=== PATIENT | male | born 1935 | race Caucasian/White ===

== ENCOUNTER → 2024-01-22 08:30 | Outpatient (REF) | payer MEDICARE, BC, SELFPAY ==
[2024-01-22 09:05] LABS: % Basophils 0.4 % (0-2); % Immature Granulocytes 0.3 % (0-0.5); % Lymphocytes 21.9 % (20.5-51.1); % Monocytes 13.1 % (1.7-9.3); % Neutrophils 62.3 % (42.2-75.2); Absolute Eosinophils 0.2 10^3/uL (0-0.7); Absolute Lymphocytes 1.6 10^3/uL (1.2-3.4); Absolute Neutrophils 4.6 10^3/uL (1.4-6.5); Hematocrit 35.3 % (39.0-52.0); Hemoglobin 11.4 g/dL (13.0-18.0); Mean Corp Hgb Conc. 32.3 g/dL (33.0-37.0); Mean Corpuscular Hgb 29.2 pg (27.0-31.0); Mean Corpuscular Volume 90.5 fL (80.0-94.0); Mean Platelet Volume 10.3 fL (7.4-10.4); Nucleated Red Blood Cells % 0 % (-); Platelet Count 143 10^3/uL (130-400); Red Cell Dist. Width 12.8 % (11.5-14.5); White Blood Cell Count 7.3 10^3/uL (4.8-10.8)
[2024-01-22 09:53] LABS: ALT (SGPT) 20 U/L (0-50); AST (SGOT) 38 U/L (17-59); Albumin 3.8 g/dl (3.5-5.0); Alkaline Phosphatase 47 U/L (38-126); Blood Urea Nitrogen 48 mg/dl (9-20); Calcium 9.7 mg/dl (8.4-10.2); Carbon Dioxide 30 mmol/L (22-30); Chloride 95 mmol/L (98-107); Glucose 108 mg/dl (70-99); Potassium 4.2 mmol/L (3.5-5.1); Sodium 134 mmol/L (135-145); Total Bilirubin 0.7 mg/dl (0.2-1.3); Total Protein 6.7 g/dl (6.3-8.2); eGFR > 60.00
== END ==
LOC: REG 08:30
PROVIDERS: ATTENDING PHYSICIAN Internal Medicine Rheumatology; FAMILY PHYSICIAN Family Medicine; REFERRING PHYSICIAN Family Medicine
DX: D64.9 Anemia, unspecified (principal); E55.9 Vitamin D deficiency, unspecified; K52.89 Other specified noninfective gastroenteritis and colitis; M06.00 Rheumatoid arthritis without rheumatoid factor, unspecified site; M15.0 Primary generalized (osteo)arthritis; M19.031 Primary osteoarthritis, right wrist; M48.061 Spinal stenosis, lumbar region without neurogenic claudication; R60.0 Localized edema; R76.8 Other specified abnormal immunological findings in serum; Z79.899 Other long term (current) drug therapy
CPT/HCPCS: 36415; 80053; 85025; 86140

== ENCOUNTER → 2024-03-04 09:11 | Outpatient (REF) | payer MEDICARE, BC, SELFPAY ==
[2024-03-04 09:59] LABS: % Basophils 0.4 % (0-2); % Eosinophils 2.9 % (0-6); % Immature Granulocytes 0.3 % (0-0.5); % Lymphocytes 17.4 % (20.5-51.1); % Monocytes 15.5 % (1.7-9.3); % Neutrophils 63.5 % (42.2-75.2); Absolute Eosinophils 0.2 10^3/uL (0-0.7); Absolute Lymphocytes 1.2 10^3/uL (1.2-3.4); Absolute Monocytes 1.1 10^3/uL (0.1-0.6); Absolute Neutrophils 4.4 10^3/uL (1.4-6.5); Hemoglobin 11.2 g/dL (13.0-18.0); Mean Corp Hgb Conc. 32.9 g/dL (33.0-37.0); Mean Corpuscular Hgb 29.9 pg (27.0-31.0); Mean Corpuscular Volume 90.9 fL (80.0-94.0); Mean Platelet Volume 10.4 fL (7.4-10.4); Nucleated Red Blood Cells % 0 % (-); Platelet Count 128 10^3/uL (130-400); Red Blood Cell Count 3.74 10^6/uL (4.70-6.10); Red Cell Dist. Width 12.5 % (11.5-14.5); White Blood Cell Count 6.9 10^3/uL (4.8-10.8)
[2024-03-04 10:22] LABS: Iron 69 ug/dl (49-181)
[2024-03-04 10:31] LABS: Percent Saturation 21 % (20-50); Total Iron Binding Capacity 318 ug/dl (261-462)
[2024-03-04 12:09] LABS: Ferritin 42.3 ng/ml (17.9-464.0)
[2024-03-04 12:40] LABS: Folate > 20.0 ng/ml (2.76-20); Vitamin B12 607 pg/ml (239-931)
== END ==
LOC: REG 09:11
PROVIDERS: ATTENDING PHYSICIAN Internal Medicine Rheumatology; FAMILY PHYSICIAN Family Medicine
DX: D64.9 Anemia, unspecified (principal); E55.9 Vitamin D deficiency, unspecified; K52.89 Other specified noninfective gastroenteritis and colitis; M06.00 Rheumatoid arthritis without rheumatoid factor, unspecified site; M15.0 Primary generalized (osteo)arthritis; M19.031 Primary osteoarthritis, right wrist; M48.061 Spinal stenosis, lumbar region without neurogenic claudication; R60.0 Localized edema; R76.8 Other specified abnormal immunological findings in serum; R79.82 Elevated C-reactive protein (CRP); Z79.899 Other long term (current) drug therapy
CPT/HCPCS: 36415; 82607; 82728; 82746; 83540; 83550; 85025; 86140

== ENCOUNTER → 2024-04-02 07:09 | Outpatient (REF) | payer MEDICARE, BC, SELFPAY | LOC: RCS 07:09 | PROVIDERS: ATTENDING PHYSICIAN Family Medicine | DX: I49.3 Ventricular premature depolarization (principal); I49.1 Atrial premature depolarization | CPT/HCPCS: 93306 ==

== ENCOUNTER → 2024-07-17 08:34 | Outpatient (REF) | payer MEDICARE, BC, SELFPAY ==
[2024-07-17 09:23] LABS: % Basophils 0.3 % (0-2); % Eosinophils 2.1 % (0-6); % Immature Granulocytes 0.3 % (0-0.5); % Lymphocytes 15.5 % (20.5-51.1); % Monocytes 13.4 % (1.7-9.3); % Neutrophils 68.4 % (42.2-75.2); Absolute Eosinophils 0.2 10^3/uL (0-0.7); Absolute Lymphocytes 1.2 10^3/uL (1.2-3.4); Absolute Neutrophils 5.2 10^3/uL (1.4-6.5); Hematocrit 35.7 % (39.0-52.0); Hemoglobin 11.7 g/dL (13.0-18.0); Mean Corp Hgb Conc. 32.8 g/dL (33.0-37.0); Mean Corpuscular Hgb 29.3 pg (27.0-31.0); Mean Corpuscular Volume 89.3 fL (80.0-94.0); Mean Platelet Volume 9.7 fL (7.4-10.4); Nucleated Red Blood Cells % 0 % (-); Platelet Count 142 10^3/uL (130-400); Red Cell Dist. Width 12.8 % (11.5-14.5); White Blood Cell Count 7.6 10^3/uL (4.8-10.8)
[2024-07-17 11:20] LABS: ALT (SGPT) 21 U/L (0-50); AST (SGOT) 39 U/L (17-59); Albumin 4.3 g/dl (3.5-5.0); Alkaline Phosphatase 55 U/L (38-126); Blood Urea Nitrogen 30 mg/dl (9-20); Calcium 10.2 mg/dl (8.4-10.2); Carbon Dioxide 32 mmol/L (22-30); Chloride 96 mmol/L (98-107); Glucose 94 mg/dl (70-99); Potassium 4.3 mmol/L (3.5-5.1); Sodium 137 mmol/L (135-145); Total Bilirubin 0.7 mg/dl (0.2-1.3); Total Protein 6.7 g/dl (6.3-8.2); eGFR > 60.00
[2024-07-17 11:40] LABS: Vitamin D, 25-OH*** 40.4 ng/mL (30-80)
== END ==
LOC: REG 08:34
PROVIDERS: ATTENDING PHYSICIAN Internal Medicine Rheumatology; FAMILY PHYSICIAN Family Medicine
DX: D64.9 Anemia, unspecified (principal); E55.9 Vitamin D deficiency, unspecified; K52.89 Other specified noninfective gastroenteritis and colitis; M06.00 Rheumatoid arthritis without rheumatoid factor, unspecified site; M15.0 Primary generalized (osteo)arthritis; M19.031 Primary osteoarthritis, right wrist; M48.061 Spinal stenosis, lumbar region without neurogenic claudication; R60.0 Localized edema; R76.8 Other specified abnormal immunological findings in serum; R79.82 Elevated C-reactive protein (CRP); Z79.899 Other long term (current) drug therapy
CPT/HCPCS: 36415; 80053; 82306; 85025; 86140

== ENCOUNTER → 2024-11-05 08:16 | Outpatient (REF) | payer MEDICARE, BC, SELFPAY | LOC: RAD 08:16 | PROVIDERS: ATTENDING PHYSICIAN Internal Medicine Rheumatology; FAMILY PHYSICIAN Family Medicine | DX: M81.0 Age-related osteoporosis without current pathological fracture (principal); Z13.820 Encounter for screening for osteoporosis | CPT/HCPCS: 77080 ==

== ENCOUNTER → 2024-12-14 11:46 | Outpatient (REF) | payer MEDICARE, BC, SELFPAY | LOC: PAVMRI 11:46 | PROVIDERS: ATTENDING PHYSICIAN Physician Assistant; FAMILY PHYSICIAN Family Medicine | DX: M54.16 Radiculopathy, lumbar region (principal) | CPT/HCPCS: 72148 ==

== ENCOUNTER → 2025-04-14 12:51 | Outpatient (REF) | payer MEDICARE, BC, SELFPAY ==
[2025-04-14 13:24] LABS: % Basophils 0.3 % (0-2); % Eosinophils 1.1 % (0-6); % Immature Granulocytes 0.5 % (0-0.5); % Monocytes 9.7 % (1.7-9.3); % Neutrophils 79.4 % (42.2-75.2); Absolute Eosinophils 0.1 10^3/uL (0-0.7); Absolute Lymphocytes 0.6 10^3/uL (1.2-3.4); Absolute Monocytes 0.6 10^3/uL (0.1-0.6); Absolute Neutrophils 5.2 10^3/uL (1.4-6.5); Hematocrit 29.3 % (39.0-52.0); Hemoglobin 9.5 g/dL (13.0-18.0); Mean Corp Hgb Conc. 32.4 g/dL (33.0-37.0); Mean Corpuscular Hgb 30.2 pg (27.0-31.0); Mean Platelet Volume 9.3 fL (7.4-10.4); Nucleated Red Blood Cells % 0 % (-); Platelet Count 145 10^3/uL (130-400); Red Blood Cell Count 3.15 10^6/uL (4.70-6.10); Red Cell Dist. Width 13.1 % (11.5-14.5); White Blood Cell Count 6.6 10^3/uL (4.8-10.8)
[2025-04-14 14:19] LABS: ALT (SGPT) 33 U/L (0-50); AST (SGOT) 46 U/L (17-59); Albumin 4.4 g/dl (3.5-5.0); Alkaline Phosphatase 43 U/L (38-126); Blood Urea Nitrogen 27 mg/dl (9-20); Calcium 9.4 mg/dl (8.4-10.2); Carbon Dioxide 33 mmol/L (22-30); Chloride 96 mmol/L (98-107); Glucose 140 mg/dl (70-99); Potassium 4.9 mmol/L (3.5-5.1); Sodium 132 mmol/L (135-145); Total Bilirubin 0.9 mg/dl (0.2-1.3); eGFR > 60.00
== END ==
LOC: REG 12:51
PROVIDERS: ATTENDING PHYSICIAN Internal Medicine Rheumatology; FAMILY PHYSICIAN Family Medicine
DX: D64.9 Anemia, unspecified (principal); E55.9 Vitamin D deficiency, unspecified; I35.0 Nonrheumatic aortic (valve) stenosis; K52.89 Other specified noninfective gastroenteritis and colitis; M06.00 Rheumatoid arthritis without rheumatoid factor, unspecified site; M15.0 Primary generalized (osteo)arthritis; M19.031 Primary osteoarthritis, right wrist; M48.061 Spinal stenosis, lumbar region without neurogenic claudication; M81.0 Age-related osteoporosis without current pathological fracture; R60.0 Localized edema; R76.8 Other specified abnormal immunological findings in serum; Z79.899 Other long term (current) drug therapy
CPT/HCPCS: 36415; 80053; 85025; 86140

== ENCOUNTER → 2025-04-22 09:18 | Outpatient (REF) | payer MEDICARE, BC, SELFPAY ==
[2025-04-22 10:11] LABS: % Basophils 0.3 % (0-2); % Eosinophils 1.3 % (0-6); % Immature Granulocytes 0.3 % (0-0.5); % Lymphocytes 8.7 % (20.5-51.1); % Monocytes 11.4 % (1.7-9.3); Absolute Eosinophils 0.1 10^3/uL (0-0.7); Absolute Lymphocytes 0.6 10^3/uL (1.2-3.4); Absolute Monocytes 0.8 10^3/uL (0.1-0.6); Absolute Neutrophils 5.6 10^3/uL (1.4-6.5); Hematocrit 31.8 % (39.0-52.0); Hemoglobin 10.3 g/dL (13.0-18.0); Mean Corp Hgb Conc. 32.4 g/dL (33.0-37.0); Mean Corpuscular Volume 92.7 fL (80.0-94.0); Mean Platelet Volume 9.4 fL (7.4-10.4); Nucleated Red Blood Cells % 0 % (-); Platelet Count 147 10^3/uL (130-400); Red Blood Cell Count 3.43 10^6/uL (4.70-6.10); Red Cell Dist. Width 13.4 % (11.5-14.5); White Blood Cell Count 7.1 10^3/uL (4.8-10.8)
[2025-04-22 10:50] LABS: Iron 54 ug/dl (49-181)
[2025-04-22 10:59] LABS: Percent Saturation 15 % (20-50); Total Iron Binding Capacity 352 ug/dl (261-462)
[2025-04-22 11:26] LABS: Ferritin 89.3 ng/ml (17.9-464.0)
== END ==
LOC: RAD 09:18
PROVIDERS: ATTENDING PHYSICIAN Internal Medicine Rheumatology; FAMILY PHYSICIAN Family Medicine
DX: M25.551 Pain in right hip (principal); D64.9 Anemia, unspecified; M06.00 Rheumatoid arthritis without rheumatoid factor, unspecified site
CPT/HCPCS: 36415; 73502; 82728; 83540; 83550; 85025

== ENCOUNTER → 2025-06-26 15:49 | Outpatient (REF) | payer MEDICARE, BC, SELFPAY | LOC: RCS 15:49 | PROVIDERS: ATTENDING PHYSICIAN Internal Medicine Cardiovascular Disease; FAMILY PHYSICIAN Family Medicine | DX: I35.0 Nonrheumatic aortic (valve) stenosis (principal) | CPT/HCPCS: 93306 ==

== ENCOUNTER → 2025-07-15 08:40 | Outpatient (REF) | payer MEDICARE, BC, SELFPAY ==
[2025-07-15 09:03] LABS: Hematocrit 35.7 % (39.0-52.0); Hemoglobin 11.4 g/dL (13.0-18.0); Mean Corp Hgb Conc. 31.9 g/dL (33.0-37.0); Mean Corpuscular Volume 87.7 fL (80.0-94.0); Nucleated Red Blood Cells % 0 % (-); Platelet Count 121 10^3/uL (130-400); Red Cell Dist. Width 13.2 % (11.5-14.5)
[2025-07-15 09:54] LABS: C-Reactive Protein < 5.00 mg/L (0.0-10.00)
[2025-07-15 11:12] LABS: ALT (SGPT) 27 U/L (0-50); AST (SGOT) 38 U/L (17-59); Albumin 4.2 g/dl (3.5-5.0); Alkaline Phosphatase 51 U/L (38-126); Blood Urea Nitrogen 22 mg/dl (9-20); Calcium 9.7 mg/dl (8.4-10.2); Carbon Dioxide 28 mmol/L (22-30); Chloride 96 mmol/L (98-107); Glucose 103 mg/dl (70-99); Potassium 4.7 mmol/L (3.5-5.1); Sodium 130 mmol/L (135-145); Total Protein 6.4 g/dl (6.3-8.2); eGFR > 60.00
== END ==
LOC: REG 08:40
PROVIDERS: ATTENDING PHYSICIAN Physician Assistant; FAMILY PHYSICIAN Family Medicine
DX: M06.00 Rheumatoid arthritis without rheumatoid factor, unspecified site (principal); Z79.899 Other long term (current) drug therapy
CPT/HCPCS: 36415; 80053; 85025; 86140

== ENCOUNTER 2025-08-19 20:13 | Inpatient (IN) | payer MEDICARE, BC, SELFPAY ==
[2025-08-19] VITALS (12 sets, daily range): BP systolic 113–158; BP diastolic 69–96; BMI 21.0; BMI 20.4
[2025-08-19 16:11] LABS: Hematocrit 34.5 % (39.0-52.0); Hemoglobin 11.1 g/dL (13.0-18.0); Mean Corp Hgb Conc. 32.2 g/dL (33.0-37.0); Mean Corpuscular Volume 87.3 fL (80.0-94.0); Nucleated Red Blood Cells % 0 % (-); Platelet Count 144 10^3/uL (130-400); Red Cell Dist. Width 14.4 % (11.5-14.5)
[2025-08-19 16:26] LABS: ALT (SGPT) 52 U/L (0-50); AST (SGOT) 59 U/L (17-59); Albumin 4.2 g/dl (3.5-5.0); Alkaline Phosphatase 66 U/L (38-126); Blood Urea Nitrogen 37 mg/dl (9-20); Calcium 9.8 mg/dl (8.4-10.2); Carbon Dioxide 25 mmol/L (22-30); Chloride 100 mmol/L (98-107); Glucose 143 mg/dl (70-99); Potassium 3.9 mmol/L (3.5-5.1); Sodium 132 mmol/L (135-145); Total Protein 6.8 g/dl (6.3-8.2); eGFR > 60.00
[2025-08-19 16:39] LABS: Troponin I 0.053 ng/ml
--- NOTE | 2025-08-19 17:45 | ED.GENMED ---
History of Present Illness
General
Chief Complaint: Swelling
Source: patient
Exam Limitations: none
Time Seen by Provider: 08/19/25 17:10
Nursing documentation reviewed up to this point in time: agreed with
History of Present Illness
History of Present Illness:
Patient with history of hypertension on hydrochlorothiazide and aortic stenosis, presents to ED secondary to 3-day history of lower leg swelling, along with skin breakdown noted over the past 24 hours. In addition, patient also reports 1 week
history of worsening shortness of breath with exertion. Denies chest pain. Denies chest palpitations. Denies vomiting or diarrhea. Denies fever or chills. Denies recent illness. Denies previous history of similar symptoms. Patient was
evaluated by his primary care physician who referred patient to ED for further evaluation and treatment. Denies recent travel or surgery. Denies leg pain.
Review of Systems
Review of Systems
Allergies reviewed?: Yes
All Other Systems: ROS reviewed and negative except as documented in HPI and ROS
Constitutional: Reports no symptoms
Respiratory: Reports trouble breathing; Denies cough
Cardiac: Reports no symptoms; Denies chest pain, palpitations or syncope
ABD/GI: Reports no symptoms; Denies vomiting or diarrhea
Musculoskeletal: Reports edema
Skin: Reports no symptoms
Neurological: Reports no symptoms
Phy Exam
Physical Exam
Physical Exam:
Physical Exam
General: mild distress, not acutely ill. afebrile
Head: nc/at. eomi
Neck: supple. no meningeal signs. normal posterior pharynx
Heart: irregularly irregular, tachycardic. systolic ejection murmur
Lungs: no acute respiratory distress. diminished breath sounds bilaterally
Abdomen: normal bowel sounds. not tender.
Neuro: alert and oriented x 3. no focal neurological deficits
Skin: no rash
Psychiatric: well kept. interactive and cooperative
Extremities: B/L LE edema, with erythema and superficial skin breakdown/abrasion. no calf tenderness.
Scores
[id number] Score for Afib Stroke Risk
Age in Years (65=0, 65-74=1, >/=75=2): > or = 75
Sex (Female=+1): Male
Congestive Heart Failure History (Yes=+1): No
Hypertension History (Yes=+1): Yes
Stroke/TIA/Thromboembolism History (Yes=+2): No
Vascular Disease History (Yes=+1): No
Diabetes Mellitus (Yes=+1): No
Score: 3
Anticoagulation Recommendations: Recommend anticoagulation (as validated in nonvalvular fib)
Heart Failure Risk
Heart Failure Risk Score: Yes
History of Stroke or TIA: No
History of intubation for respiratory distress: No
Heart rate on ED arrival >/= 110: Yes
SaO2 <90% on arrival on room air: No
HR >/=110 during 3min walk test (or too ill to perform test): Yes
ECG has acute ischemic changes: No
Urea >/=12mmol/L (BUN 33.6mg/dL): Yes
Serum CO2>/=35mmol/L: No
Troponin I or T elevated to [place] Level (0.4mg/dL): No
NT-proBNP >/=5,000ng/L (5,000pg/ml): Yes
HF Risk Score: 4
Admission Status: HIGH RISK 26.1% Consider SNF treatment or admission to hospital
Course
Orders/Labs/Results
Orders:
Orders
08/19/25 Dinner
Cholesterol Lowering
At Your Request: Full Participation
Cholesterol Lowering: Sodium, 2 Gram
08/19/25 15:41
Electrocardiogram (*1) Urgent
Reason for Study: Abnormal EKG
EKG- Treatment ONCE
08/19/25 15:57
BNP [NT-proBNP] Urgent
Complete Blood Count/With Diff Urgent
Comprehensive Metabolic Panel Urgent
Troponin I Urgent
08/19/25 17:26
US Legs, Bilateral [US Periph Venous LOWER Ext Timur] Urgent
Comment:
Reason For Exam: swelling w redness
08/19/25 17:27
CR Chest - 2 Views Urgent
Comment:
Reason For Exam: sob
08/19/25 17:51
Diltiazem HCl [Cardizem] 10 mg IV NOW STA
08/19/25 18:00
Diltiazem 125 mg/125 ml Nss [Cardizem] 125 mg in 125 ml IV PER PROTOCOL
Initial dose in mg/hr, then titrate:: 5
Titrate to keep:: Heart rate 80-100 bpm
Titrate by mg/hr:: 5 mg/hr
Frequency of titrations (minutes):: 15
Maximum dose in mg/hr:: 15
08/19/25 19:22
Furosemide [Lasix] 20 mg IV NOW STA
08/19/25 19:59
Admit/Transfer Patient As Directed
Co-Sign Provider:
Level of Care: Inpatient admission
Assign to:: Telemetry
Physician / Group: estela
Diagnosis: new onset afib rvr
Reason for Telemetry: Arrhythmia
Date to Stop Telemetry: 08/22/25
Time to Stop Telemetry: 11:00
Reason for Hospitalization: new onset afib rvr
Expected length of stay greater than two midnights?: Yes
ELOS- Estimated Length of Stay in days: 2
I certify the patient meets the requirements for IP care: Yes
08/19/25 20:00
Code Status As Directed
Resuscitation Status: Full Code
PRN Pain Medication Management As Directed
May give lesser potent ordered pain med per pt: Yes
preference::
Protocol:: Medication orders for pain may be administered in a
manner that supports deferring to patient preference
when the pt is:
- Requesting an ordered lesser potent pain medication.
Least to most potent pain medications are defined
as: acetaminophen < NSAID < tramadol < opioids
(morphine, oxycodone, hydromorphone).
- Requesting a lesser dose of the same medication IF
ORDERED.
- Requesting a less intrusive route of administration
if both routes are prescribed by the provider (PO <
IV).
08/19/25 20:11
EKG [Electrocardiogram (*1)] Urgent
Reason for Study: Abnormal EKG
EKG- Treatment ONCE
08/19/25 21:59
Troponin I Q6H
Apixaban [Eliquis] 5 mg PO BID
08/19/25 21:59
WOUND/OSTOMY CONSULT Routine
Reason for Consult: edema blistering
VTE Contraindication Routine
VTE Mechanical Device Contraindication: Medical Contraindication
Pharmocologic Contraindication: Medical Contraindication
TSH Reflex To Free T4 Routine
Activity As Directed
Activity Level: As Tolerated
I/O [Intake/ Output] As Directed
Frequency: q12h
Vital Signs As Directed
Frequency: Per unit guidelines
Weight As Directed
Frequency: Daily
08/20/25 04:21
Complete Blood Count/With Diff IN AM
Troponin I Q6H
08/20/25 04:22
Comprehensive Metabolic Panel IN AM
08/20/25 08:00
Budesonide [Entocort EC] 3 mg PO DAILY
Furosemide [Lasix] 20 mg IV DAILY
Hydroxychloroquine [Plaquenil] 200 mg PO DAILY
Loperamide [Imodium] 2 mg PO BID
Multivitamin [Theragran] 1 tablet PO DAILY
Triamterene/Hctz [Dyazide] 1 capsule PO DAILY
08/20/25 10:17
Troponin I Q6H
08/20/25 15:59
Troponin I Q6H
08/20/25 18:00
Tamsulosin [Flomax] 0.8 mg PO QPM
08/22/25 08:00
alendronate 35 mg PO SA
Abnormal Lab Results
08/19/25
15:57
RBC 3.95 L 10^6/uL
(4.70-6.10)
Hgb 11.1 L g/dL
(13.0-18.0)
Hct 34.5 L %
(39.0-52.0)
MCHC 32.2 L g/dL
(33.0-37.0)
Absolute Neuts (auto) 6.7 H 10^3/uL
(1.4-6.5)
Absolute Lymphs (auto) 0.7 L 10^3/uL
(1.2-3.4)
Absolute Monos (auto) 0.9 H 10^3/uL
(0.1-0.6)
Neutrophils % 80.3 H %
(42.2-75.2)
Lymphocytes % 8.6 L %
(20.5-51.1)
Monocytes % 10.3 H %
(1.7-9.3)
Sodium 132 L mmol/L
(135-145)
BUN 37 H mg/dl
(9-20)
Glucose 143 H mg/dl
(70-99)
ALT 52 H U/L
(0-50)
Troponin I 0.053 H* ng/ml
08/19/25 15:57
08/19/25 15:57
Vital Signs
Initial and Last Documented VS:
Initial Vital Signs
Temp Pulse Resp BP
97.8 F 95 16 146/96
08/19/25 15:41 08/19/25 15:41 08/19/25 15:41 08/19/25 15:41
Last Documented Vital Signs
Temp Pulse Resp BP Pulse Ox
97.8 F 94 14 120/75 97
08/20/25 10:58 08/20/25 11:14 08/20/25 10:58 08/20/25 11:14 08/20/25 10:58
MDM/Problems Addressed
MDM/Problems Addressed:
History, exam, EKG, and chest x-ray consistent with new onset rapid atrial fibrillation with heart failure. Patient will be started on Cardizem infusion and given Lasix IV. Patient will be admitted for further evaluation and treatment. Will defer
anticoagulation to admitting team.
*Pulse Oximetry
SaO2: 100
Oxygen Mode of Delivery: Room air
Patient hypoxic: no
*EKG
Interpreted by ED Provider?: Yes
EKG Intrepretation Date: 08/19/25
Heart Rate: 120
Rate: tachycardiac
Rhythm: a-fib
[place]: normal axis
Interval: normal interval
*Critical Care Note
Total Time (30-74mins, 75-104mins- exclusive of procedures): Not Applicable
ED Attending Note
-
Portions of this chart may have been created with voice recognition software.� Occasional wrong word or��sound alike� substitutions may have occurred due to the inherent limitations of voice recognition software.
Discharge Plan
Departure
Patient Disposition: Admit
Date of Disposition: 08/19/25
Time of Disposition: 19:24
Admit to: Telemetry
Presentation/result/management discussed w/ accepting MD/DO: Hospitalist
Discharge Problem:
Atrial fibrillation, rapid, Fluid overload
Interventions
Interventions:
*Risk Screen - Suicide Last Done: 08/19/25 22:04
*General Assessment Last Done: 08/19/25 15:41
*Neglect/Abuse Screening Last Done: 08/19/25 15:41
*ED COVID-19 Vaccine History Last Done: 08/19/25 22:04
*Nursing Disposition Last Done: 08/19/25 21:52
ED- Cardiac Assessment Last Done: 08/19/25 17:05
ED- Pulmonary Assessment Last Done: 08/19/25 17:05
ED-Skin Assessment Last Done: 08/19/25 17:05
Discharge Date and Time
Discharge Date/Time: 08/19/25 21:52
[2025-08-19] MEDS: CARDIZEM 125 IV (19:11)
[2025-08-19] MEDS: LASIX 20 MG IV (19:59)
--- NOTE | 2025-08-19 20:06 | HPS.HSE ---
Addendum entered and electronically signed by Ahsan Barrios MD 08/19/25 21:49:
Blood pressure 116/74 and HR 89. Cancelled PO metoprolol tartrate. PRN IV lopressor if needed for tachycardia.
Addendum entered and electronically signed by Ahsan Barrios MD 08/19/25 20:35:
Patient became bradycardic to 50s on cardizem drip so turned off and metoprolol tartrate 25 BID started.
Original Note:
Family Physician
-
Family Physician: Joseph Osman
Chief Complaint
-
shortness of breath
History of Present Illness
89-year-old male past medical history of hypertension, severe aortic stenosis, obstructive sleep apnea, BPH, rheumatoid arthritis, presenting with 3-day history of lower leg swelling, skin breakdown over the past 24 hours. Due to a history of
shortness of breath with exertion. Minimal cough. No chest pain. Denies palpitations. Denies vomiting or diarrhea. Denies fevers or chills. Denies recent illness. He gained 5 pounds in the past few days
He does not smoke. Occasionally drinks alcohol.
Medical History
Past Medical History
Past Medical History: Reports Other (hypertension, severe aortic stenosis, obstructive sleep apnea, BPH, rheumatoid arthritis)
Past Surgical History: Reports None
Social History
Tobacco: Non-smoker
Alcohol: Occasional
Drug: None
Family History
Family History: Not pertinent
Allergies / Home Medications
Allergies reflects when Allergies were last updated in [employer]
Home Medications with original date entered in [employer]
Allergy/Medication List:
Allergies
Allergy/AdvReac Type Severity Reaction Status Date / Time
penicillin G Allergy Unknown Verified 08/19/25 17:05
Penicillins Allergy Unknown Verified 08/19/25 17:05
Sulfa (Sulfonamide Allergy Unknown Verified 08/19/25 17:05
Antibiotics)
sulfamethoxazole Allergy Unknown Verified 08/19/25 17:05
trimethoprim Allergy Unknown Verified 08/19/25 17:05
[id number] - Not Allergy Unknown Uncoded 08/19/25 17:05
Converted 7. See Text.
Home Medications
acetaminophen 650 mg tablet,extended release 1,300 mg PO Q8HPRN PRN mild pain 08/19/25
alendronate 35 mg tablet 35 mg PO SA 08/19/25
budesonide 3 mg capsule,delayed,extended release 3 mg PO DAILY 08/19/25
hydroxychloroquine 200 mg tablet (Plaquenil) 200 mg PO DAILY 08/19/25
loperamide 2 mg capsule 2 mg PO BID 08/19/25
omega 6-hoy-uaf-fish oil 1,200 mg (144 mg-216 mg) capsule (Fish Oil) 1 cap PO BID 08/19/25
rituximab 10 mg/mL concentrate,intravenous (Rituxan) See Rx Instructions .Route .COMPLEX 08/19/25
tamsulosin 0.4 mg capsule (Flomax) 0.8 mg PO QPM 08/19/25
therapeutic multivitamin 1 tab PO DAILY 08/19/25
triamterene 37.5 mg-hydrochlorothiazide 25 mg capsule 1 cap PO DAILY 08/19/25
Review of Systems
-
Constitutional: Reports No Symptoms
EENT: Reports No Symptoms
Respiratory: Reports No Symptoms
Cardiac: Reports No Symptoms
Abdomen/GI: Reports No Symptoms
: Reports No Symptoms
Musculoskeletal: Reports No Symptoms
Skin: Reports No Symptoms
Neurological: Reports No Symptoms
Endocrine: Reports No Symptoms
Hematologic/Lymphatic: Reports No Symptoms
Psych: Reports No Symptoms
Physical Exam
Vital Signs
Vital Signs
Temp Pulse Resp BP Pulse Ox
98.8 F 90 24 121/69 100
08/19/25 17:03 08/19/25 19:59 08/19/25 19:42 08/19/25 19:59 08/19/25 19:30
Physical Exam
General: Well Developed, Well Nourished and No Apparent Distress
HEENT: NormoCephalic, Moist mucous membranes and Atraumatic
Respiratory: Clear
Cardiac: S1/S2 and Regular Rhythm; No Murmur or Rub
GI: Soft, Non Tender, Non Distended and Normal Bowel Sounds; No Organomegaly
Rectal: Deferred by Provider
Musculoskeletal: No Clubbing, No Cyanosis and No Edema
Skin: No Rash
Neuro: Nonfocal/grossly intact
Laboratory Results
-
08/19/25 15:57
08/19/25 15:57
Laboratory Results
Total Bilirubin 0.8 mg/dl (0.2-1.3) 08/19/25 15:57
AST 59 U/L (17-59) 08/19/25 15:57
ALT 52 U/L (0-50) H 08/19/25 15:57
Alkaline Phosphatase 66 U/L (38-126) 08/19/25 15:57
Troponin I 0.053 ng/ml H* 08/19/25 15:57
Data Reviewed
-
Lab Data: Labs Reviewed by me
Old Records: Reviewed
Impression/Plan
-
IMPRESSION:
PLAN:
# New onset atrial fibrillation with RVR
- EKG shows atrial fibrillation heart rate 120, left bundle branch block
- Cardizem drip started
- Continue amiodarone
- [id number] score of 3 including current heart failure
-Check TSH
- Start Eliquis
# Acute CHF exacerbation likely secondary to tachycardia
- Chest x-ray shows small bilateral pleural effusions, underlying pneumonia not excluded
-Cardiac BNP 5900
- Check I's and O's, daily weights
-Prior echo shows EF of 50%
- 20 IV Lasix given
# Bilateral lower extremity edema blistering
- Wound care
# Nonischemic myocardial injury
- Troponin 0.053
-Trend troponins
-EKG shows left bundle branch block, no prior for comparison
Severe aortic stenosis
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
Essential hypertension
- Continue triamterene/hydrochlorothiazide
Osteoporosis
- Continue alendronate
BPH
- Continue tamsulosin
Obstructive sleep apnea
Rheumatoid arthritis
- On Rituxan
- Continue hydroxychloroquine
- Continue budesonide
Chronic anemia
- Hemoglobin stable 11.1
Full code
DVT prophylaxis�heparin
Cardiac diet
--- NOTE | 2025-08-19 20:19 | EDRN ---
this TOPOLOGY TEACHER noted on the pts lunchroom monitor that his heart rate has slowed and his appeared to be at a regular rate. this TOPOLOGY TEACHER obtained a repeat EKG. the pts EKG showed Atrial Flutter with 4:[address] Amaro and the admitting hospitalist
Dr Barrios were notified of above and reviewed this pts repeat EKG.
the admitting hospitalist Dr Barrios gave this TOPOLOGY TEACHER a verbal order to STOP this pts Diltiazem infusion at this time.
will continue to monitor this pt closely.
--- NOTE | 2025-08-19 21:49 | EDRN ---
Per admitting hospitalist Dr Barrios verbal order, DO NOT give Lopressor 25mg PO.
Per admitting hospitalist Dr Barrios, will change this pts ordered medication and dose. see EMAR
--- NOTE | 2025-08-19 22:00 | TRANSFER ---
Pt arrived from ED by stretcher. Assist x 2 walking to hospital bed. Alert and oriented x 3. VSS. NSR w/ PVC's and BBB. Pt was started on Eliquis upon transfer to floor. Patient education was provided on the effects and purpose of Eliquis as a blood
thinner. Call kurtz within reach.
[2025-08-19] MEDS: ELIQUIS 5 MG PO (22:45)
--- NOTE | 2025-08-19 22:51 | PTCARENOTE ---
Critical troponin came back at 0.061. House provider notified.
[2025-08-19] MEDS: TYLENOL 1000 MG PO (22:57)
[2025-08-19] MEDS: MELATONIN 5 MG PO (22:57)
--- NOTE | 2025-08-19 23:00 | PTCARENOTE ---
Pt states that he usually takes 15 mg of Melatonin at night to help him fall asleep. TT EQUIPMENT [employer]ITOR [employer]OTOTYPESETTING for order. See MAR.
[2025-08-19] MEDS: MELATONIN 10 MG PO (23:17)
[2025-08-19 23:44] LABS: Troponin I 0.061 ng/ml
[2025-08-20] VITALS (9 sets, daily range): BP systolic 91–120; BP diastolic 50–75; PULSE 90; O2SAT 100; BMI 20.4
[2025-08-20 04:59] LABS: ALT (SGPT) 41 U/L (0-50); AST (SGOT) 43 U/L (17-59); Albumin 3.2 g/dl (3.5-5.0); Alkaline Phosphatase 47 U/L (38-126); Blood Urea Nitrogen 32 mg/dl (9-20); Calcium 8.5 mg/dl (8.4-10.2); Carbon Dioxide 27 mmol/L (22-30); Chloride 102 mmol/L (98-107); Estimated Creatinine Clearance 56 ml/min; Glucose 103 mg/dl (70-99); Potassium 3.6 mmol/L (3.5-5.1); Sodium 133 mmol/L (135-145); Total Protein 5.3 g/dl (6.3-8.2); eGFR > 60.00
[2025-08-20 05:01] LABS: Hematocrit 29.8 % (39.0-52.0); Hemoglobin 9.8 g/dL (13.0-18.0); Mean Corp Hgb Conc. 32.9 g/dL (33.0-37.0); Mean Corpuscular Volume 87.6 fL (80.0-94.0); Nucleated Red Blood Cells % 0 % (-); Platelet Count 113 10^3/uL (130-400); Red Cell Dist. Width 14.2 % (11.5-14.5)
[2025-08-20 05:11] LABS: Troponin I 0.063 ng/ml
--- NOTE | 2025-08-20 05:16 | PTCARENOTE ---
Critical troponin came back at 0.063. House provider notified.
[2025-08-20] MEDS: LOPRESSOR 5 MG IV (07:50)
[2025-08-20] MEDS: ELIQUIS 5 MG PO ×2 (07:51→20:19)
[2025-08-20] MEDS: LASIX 20 MG IV ×3 (07:51→17:49)
[2025-08-20] MEDS: IMODIUM 2 MG PO ×2 (07:52→21:41)
[2025-08-20] MEDS: PLAQUENIL 200 MG PO (07:52)
[2025-08-20] MEDS: ENTOCORT EC 3 MG PO (07:52)
[2025-08-20] MEDS: THERAGRAN 1 TABLET PO (07:52)
[2025-08-20] MEDS: DYAZIDE 1 CAPSULE PO (07:52)
[2025-08-20] MEDS: TYLENOL 1000 MG PO (08:10)
--- NOTE | 2025-08-20 09:24 | W.PN.HOSP.TC ---
Today's Communication/Plan
-
see outlined plan below
Assessment / Plan
Assessment / Plan
Assessment:
New onset A. Fib with RVR
- TSH normal
- s/p Cardizem drip; stopped due to bradycardia
- now on prn Lopressor
- Tele: NSR
- continue Eliquis
- DCA cards to evaluate
Acute HFpEF
- Echo 06/26/25: Normal left ventricular size and wall thickness. Low normal left ventricular systolic function. LV ejection fraction is 50% by visual assessment. Stage I diastolic dysfunction suggestive of abnormal relaxation. Normal right
ventricular size and function. Indexed LA volume is moderately abnormal (42-48 mL/m2). Dilated right atrium. Thickened mitral valve leaflets with mild to moderate mitral regurgitation. Thickened and calcified aortic valve with restricted leaflet
motion. Severe aortic stenosis with peak/mean gradients across the aortic valve of 64/35 mmHg, respectively. The aortic valve by the Continuity equation is calculated at 0.6 cm sq., using a LVOT diameter of 2.2 cm. AV Dimensionless Index is 0.2. No
significant aortic regurgitation is seen.
Mild to moderate tricuspid regurgitation. Estimated pulmonary artery pressure of 54 mmHg assuming a right atrial pressure of 8 mmHg. Compared to previous echo 04/02/2024, the aortic stenosis has worsened. It was previously moderate with a mean
gradient of 18 and the aortic valve area of 1.0 cm sq, and now it is moderate to severe with the mean gradient of 35mmHg with an aortic valve area of 0.6 cm sq.
- BNP 5900
- continue IV Lasix - requires intensive monitoring of I/OS, weights, lytes
- DCA cards to evaluate
Aortic stenosis, severe
- OP f/u for repeat Echo and TAVR evaluation
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
- wound care evaluation
Nonischemic myocardial injury in setting of acute CHF, Afib
- trend trops to peak
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
Essential hypertension
- hold triamterene/hydrochlorothiazide
Osteoporosis
- continue alendronate
BPH
- continue tamsulosin
Obstructive sleep apnea
Rheumatoid arthritis
- On Rituxan
- Continue hydroxychloroquine
- Continue budesonide
Chronic anemia
- Hemoglobin stable 11.1
DVT ppx: Eliquis
Code: Full
Anticipated Discharge: > 48 hours
Subjective/Interval History
-
Date of Service: August 20, 2025
back in NSR on monitor
reports significant urine output with diuretics, weights suggests 2kg improvement
denies CP or SOB
Objective Data
-
Labs:
Laboratory Results
08/20/25 08/20/25
04:21 04:22
WBC 6.7
Hgb 9.8 L
Hct 29.8 L
Plt Count 113 L D
Sodium 133 L
Potassium 3.6
Chloride 102
Carbon Dioxide 27
BUN 32 H
Creatinine 0.8
Glucose 103 H
Calcium 8.5
Total Bilirubin 0.6
AST 43
ALT 41
Alkaline Phosphatase 47
Vital Signs:
Vital Signs
Temp Pulse Resp BP Pulse Ox
97.8 F 82 14 114/65 99
08/20/25 07:51 08/20/25 07:51 08/20/25 07:51 08/20/25 07:51 08/20/25 07:51
I&O
08/19/25 08/20/25 08/21/25
06:59 06:59 06:59
Output Total 1100 / 1100
Balance -1100 / -1100
Physical Exam
-
General: No Apparent Distress
HEENT: Normocephalic and Atraumatic
Respiratory: Crackles; Negative Wheezes
Cardiac: Regular Rhythm and S1/S2
GI: Soft and Nontender
Musculoskeletal: Edema, Right Lower Extrem and Edema, Left Lower Extrem
Skin: Other (venous stasis dermatitis)
Neuro: AO x 3
Psych: Calm
Data Reviewed
-
Total Time Spent with Patient (in minutes): 51
Labs: Labs Reviewed by me
--- NOTE | 2025-08-20 09:51 | CON.CAR ---
Addendum entered and electronically signed by Cassius Zendejas MD 08/20/25 15:39:
I saw and examined the patient.
The Senior Licensing Manager's note was reviewed and I agree with the note.
Comment: Briefly, 89-year-old man past medical history of moderate to severe aortic stenosis presenting progressively worsening lower extremity edema found to be in acute heart failure as well as rapid atrial flutter.
Patient was maintained on diltiazem drip overnight and heart rate was well-controlled in atrial flutter.
However, this morning diltiazem drip was discontinued and heart rates have been elevated periodically today
Plan to start metoprolol for goal heart rate less than 110 bpm
Add amiodarone for adjunct rate control given marginal blood pressure
New to Eliquis for risk reduction of cardioembolic stroke
Increase IV Lasix frequency to twice daily
Stop triamterene/hydrochlorothiazide
Follow daily weights, renal function and electrolytes
Agree with leg wraps/Tubigrip's
For completeness check limited�recent study showed low normal LVEF echo and moderate to severe aortic stenosis
Rest per Lisbet Eaton
Original Note:
Consultation
Consultation Request
Date/Time Consultation Requested: 08/20/25
Date/Time Consultation Performed: 08/20/25
Requesting Provider: Dr. Denis
Performing Provider: Dr. Zendejas
Reason for Consultation: Newly diagnosed Afib, acute HF, sev
Medical History
-
History of Present Illness:
Patient came to the ER yesterday with increased LE edema and newly diagnosed A-fib prompting admission and now cardiology has been consulted. Patient was seen by Dr. Lazar in the office on 07/07/2025 and ECG from that visit was personally
reviewed by me today and shows SR. Patient has known severe with mean gradient 35 mmHg by echo 06/26/2025 and at his office visit on 07/07/2025 they discussed eventual TAVR workup following next echo planned for 12/2025. Patient says that he
suddenly started to feel much more tired over the last 1 to 2 weeks and had started to notice dyspnea on exertion. No sensation of palpitations and no chest pain. He noticed increased LE edema and then a rash on his legs and so he saw his PCP in
the office yesterday and they noticed the new A-fib and suspected heart failure prompting visit to the ER. Patient was admitted with a proBNP 5950 and he has small B/L pleural effusions on CXR. ECG in the ER again showed A-fib with RVR and patient
was started on Cardizem gtt, but then had bradycardia and gtt was stopped. Patient reports symptomatic improvement and says that he wishes to be discharged to home. Patient lives alone as his this past spring, but his son and one
of his daughters checks on him daily.
PMH:
Severe with mean gradient 35 mmHg by echo 06/26/2025
HTN
Rheumatoid arthritis
Past Medical History
Past Medical History: Other (in HPI)
Past Surgical History: Orthopedic (right KISHAN) and Tonsilectomy
Social History
Tobacco: Former Smoker
Alcohol: Occasional
Drug: None
Personal: (his just )
Living: Alone (but his son and daughter stop by to check on him daily)
Family History
Family History: CAD and Other (RA)
Allergies / Home Medications
Allergy/AdvReac Type Severity Reaction Status Date / Time
penicillin G Allergy Unknown Verified 08/19/25 20:45
Penicillins Allergy Unknown Verified 08/19/25 20:45
Sulfa (Sulfonamide Allergy Unknown Verified 08/19/25 20:45
Antibiotics)
sulfamethoxazole Allergy Unknown Verified 08/19/25 20:45
trimethoprim Allergy Unknown Verified 08/19/25 20:45
�Medication �Instructions �Recorded �Confirmed �Type
acetaminophen 650 mg 1,300 mg PO Q8HPRN PRN mild pain 08/19/25 08/19/25 History
tablet,extended release
alendronate 35 mg tablet 35 mg PO SA 08/19/25 08/19/25 History
budesonide 3 mg 3 mg PO DAILY 08/19/25 08/19/25 History
capsule,delayed,extended release
hydroxychloroquine 200 mg tablet 200 mg PO DAILY 08/19/25 08/19/25 History
(Plaquenil)
loperamide 2 mg capsule 2 mg PO BID 08/19/25 08/19/25 History
omega 4-lzr-drf-fish oil 1,200 mg 1 cap PO BID 08/19/25 08/19/25 History
(144 mg-216 mg) capsule (Fish Oil)
rituximab 10 mg/mL See Rx Instructions .Route .COMPLEX 08/19/25 08/19/25 History
concentrate,intravenous (Rituxan)
tamsulosin 0.4 mg capsule (Flomax) 0.8 mg PO QPM 08/19/25 08/19/25 History
therapeutic multivitamin 1 tab PO DAILY 08/19/25 08/19/25 History
triamterene 37.5 1 cap PO DAILY 08/19/25 08/19/25 History
mg-hydrochlorothiazide 25 mg
capsule
Review of Systems
-
History Source: Patient
All other systems: Negative unless noted
Physical Exam
Vital Signs
Temp Pulse Resp BP Pulse Ox
97.8 F 82 14 114/65 99
08/20/25 07:51 08/20/25 07:51 08/20/25 07:51 08/20/25 07:51 08/20/25 07:51
GEN: NAD. AAOx3
HEENT: EOMI, MMM
LUNGS: RA. CTA B/L, no wheeze
CV: Rate controlled atrial flutter on tele. Reg, S1/S2, 2/6 syst LSB
ABD: soft, BS+, NT, ND
EXT: +1 B/L LE edema, B/L LE CASEY wraps in place.
NEURO: Gross non-focal
SKIN: No rash
Lab Results
08/20/25 04:21
08/20/25 04:22
Troponin I 0.063 ng/ml H* 08/20/25 04:21
Gzb-J-Tojgojoqddz Pept 5950 pg/ml 08/19/25 15:57
Impression / Plan
-
PCP: Dr. Osman
Cardiology: Dr. Huntley
Impression:
Admitted with acute HF 08/19/2025
Acute HFpEF
Severe with mean gradient 35 mmHg by echo 06/26/2025
Small B/L pleural effusions on CXR 08/19/2025
Elevated troponin
Venous stasis dermatitis
HTN
Rheumatoid arthritis
Echo 06/26/2025: EF 50%, severe with peak/mean 64/35 mmHg, mild to moderate MR, mild to moderate TR with PAP 54 mmHg
Echo 08/20/2025: Follow-up study, report pending
Plan:
-Patient came to the ER yesterday with increased LE edema and newly diagnosed A-fib prompting admission and now cardiology has been consulted. Patient was seen by Dr. Lazar in the office on 07/07/2025 and ECG from that visit was personally
reviewed by me today and shows SR. Patient has known severe with mean gradient 35 mmHg by echo 06/26/2025 and at his office visit on 07/07/2025 they discussed eventual TAVR workup following next echo planned for 12/2025. Patient says that he
suddenly started to feel much more tired over the last 1 to 2 weeks and had started to notice dyspnea on exertion. No sensation of palpitations and no chest pain. He noticed increased LE edema and then a rash on his legs and so he saw his PCP in
the office yesterday and they noticed the new A-fib and suspected heart failure prompting visit to the ER. Patient was admitted with a proBNP 5950 and he has small B/L pleural effusions on CXR. ECG in the ER again showed A-fib with RVR and patient
was started on Cardizem gtt, but then had bradycardia and gtt was stopped. Patient reports symptomatic improvement and says that he wishes to be discharged to home. Patient lives alone as his this past spring, but his son and one
of his daughters checks on him daily.
-Telemetry reviewed by me looks like rate controlled atrial flutter. ECG from yesterday reviewed by me today looks like A-fib with RVR
-Patient remains in rate controlled atrial flutter, he is asymptomatic with atrial arrhythmia. Atrial arrhythmia is a new diagnosis and duration is unclear.
-Patient is agreeable to initiation of Eliquis 5 mg BID (age 89, Cre 0.8, wt 62.5 kg)
-Suspect atrial arrhythmia is part of what is driving HF and recommend an attempt at rhythm control and if patient remains in A-fib/flutter at outpatient follow-up we will plan on CV.
-For now we will add amiodarone 200 mg TID for adjunct rate control
-Check ECG in a.m. to follow QT interval, ordered by me
-Start Toprol-XL 25 mg daily to help with rate control efforts
-Patient with acute HFpEF, EF was 50% with severe by last echo 06/26/2025. Follow-up echo study to recheck EF and AAS ordered by me on 08/20/2025.
-Patient reports symptomatic improvement with Lasix 20 mg IV daily since admission, patient was taking triamterene/HCTZ prior to admission which has been stopped.
-Toprol-XL as noted above
-Can try adding CASEY/ARB/ARNI/aldosterone antagonist pending echo and BP/Cre response to diuresis
-Could try adding SGLT2 inhibitor pending renal function with diuresis
-Troponin is flat at 0.063 and will be managed as a nonischemic myocardial injury troponin elevation
--- NOTE | 2025-08-20 10:50 | WOUNDNOTE ---
[facility] RN note: Patient admitted with Rapid Atrial fibrillation and fluid overload.
See H&P for complete history. Lives by self, daughter nearby.
PMH: Past Medical History: Reports Other (hypertension, severe aortic stenosis, obstructive sleep apnea, BPH, rheumatoid arthritis)
Past Surgical History: Reports None
Wound Location and type/assessment: Patient admitted with: Venous stasis dermatitis of both legs and resolving edema. Skin warm and flaky dry, scattered healed blisters, no drainage now. Patient states he moisturizes his legs 3 x per day and
elevates his legs when he is sitting. Does not use compression stockings he states because he can't manage to put them on himself. Non palpable pedal pulses, skin warm and dry. + Audible pedal and posterior tibial pulses with Doppler, 1+ edema
mainly in feet to ankle. Heels are intact, blanchable pink. Patient turned self to side, Sacrum is blanchable red, L buttock with tiny partial thickness opening, ? stage 2 PI. Air cushion in use under sacrum.
Appetite: Good.
Pressure redistribution devices in place: Accumax, encouraged turning onto sides, patient states he does when he sleeps. Air chair cushion under sacrum and applied pillow under calves.
Plan: Foams applied to heels and buttocks/sacrum. Applied Vaseline to legs, will order mineral oil to start tomorrow. Javier wraps applied knee high. Gave patient Tubigrip size F cut to fit his legs, daughter at bedside will take home. Encouraged to
try and apply Tubigrip at home until can obtain compression stockings. Recommendation given regarding easier to manage compression stockings ie; ones with a zipper or Velcro and where to obtain.
Confirmed orders with Dr. Denis and updated nurse Marcela. Updated care plan and will follow as needed.
Note to case management of equipment requested for discharge: None.
[2025-08-20 11:08] LABS: Troponin I 0.063 ng/ml
--- NOTE | 2025-08-20 12:30 | CM ---
Initial assessment completed with patient with daughter in room. Patient lives alone in a 2 story home plus basement (2 handrails), lives on 1st floor but does do laundry in basement, places wash basket on stairs and kicks it step by step downward,
1 step to enter the home. patient furniture surfs in the home, uses a SPC outside the home, also has 2 RW and a w/ch in the home, does drive. No in-home services. Family assists as needed. Does have HC-POA. No VA benefits. No psychiatric
hospitalizations. PCP is Dr. Joseph Osman. Pharmacy is [facility] on [facility] in [place]. Discharge POC:
[2025-08-20] MEDS: PACERONE 200 MG PO ×2 (15:47→21:41)
[2025-08-20] MEDS: FLOMAX 0.8 MG PO (17:50)
[2025-08-20 17:53] LABS: Troponin I 0.058 ng/ml
[2025-08-20] MEDS: TOPROL XL 25 MG PO (20:18)
[2025-08-20] MEDS: IMODIUM PO ×2 (20:19→20:21)
[2025-08-20] MEDS: MELATONIN 15 MG PO (21:41)
[2025-08-21 03:00] VITALS: BP 96/58
[2025-08-21 04:28] VITALS: BMI 19.7
[2025-08-21 05:56] LABS: Hematocrit 32.1 % (39.0-52.0); Hemoglobin 10.2 g/dL (13.0-18.0); Mean Corp Hgb Conc. 31.8 g/dL (33.0-37.0); Mean Corpuscular Volume 87.5 fL (80.0-94.0); Platelet Count 111 10^3/uL (130-400); Red Cell Dist. Width 14.4 % (11.5-14.5)
[2025-08-21 06:13] LABS: Blood Urea Nitrogen 30 mg/dl (9-20); Calcium 8.5 mg/dl (8.4-10.2); Carbon Dioxide 29 mmol/L (22-30); Chloride 99 mmol/L (98-107); Estimated Creatinine Clearance 54 ml/min; Glucose 118 mg/dl (70-99); Magnesium 1.7 mg/dl (1.6-2.3); Potassium 3.5 mmol/L (3.5-5.1); Sodium 132 mmol/L (135-145); eGFR > 60.00
[2025-08-21 07:00] VITALS: BP 119/57
[2025-08-21] MEDS: PACERONE 200 MG PO (08:51)
[2025-08-21] MEDS: ENTOCORT EC 3 MG PO (08:51)
[2025-08-21] MEDS: PLAQUENIL 200 MG PO (08:52)
[2025-08-21] MEDS: TOPROL XL 25 MG PO (08:52)
[2025-08-21] MEDS: ELIQUIS 5 MG PO (08:52)
[2025-08-21] MEDS: THERAGRAN 1 TABLET PO (08:52)
[2025-08-21] MEDS: IMODIUM 2 MG PO (08:52)
[2025-08-21] MEDS: LASIX 20 MG IV (08:52)
--- NOTE | 2025-08-21 09:27 | W.PN.CARDCBS ---
Addendum entered and electronically signed by Jose Manuel Adams MD 08/21/25 13:26:
I saw and examined the patient.
The Home And Family Living Professor's note was reviewed and I agree with the note.
Comment:
GEN: No distress, awake, Ox3
HEENT: supple, anicteric, mmm
LUNGS: CTA, no wheezes/rales
CV: Reg, S1/S2, 2/6 syst LSB, no gallop
ABD: soft, BS+, NT/ND
EXT: No edema
NEURO: Gross non-focal
SKIN: No rash
Plan:
Clinically feels much better. I reviewed his echo with him with has an ejection fraction of 20 to 25% with severe aortic stenosis.
He strongly prefers to go home and is back in sinus rhythm. It remains unclear whether the drop in ejection fraction is from aortic stenosis, coronary artery disease, or his atrial arrhythmia.
Continue amiodarone 200 mg twice daily and Eliquis 2.5 mg twice daily. Continue Toprol, lisinopril, and Lasix.
Blood pressure remains stable but slightly on the low side. I told him at follow-up he will need to be scheduled for a cardiac catheterization. I think at this point I would recommend proceeding with TAVR evaluation.
I advised him if he feels worse he should return to the emergency room.
Check basic metabolic panel in 1 week.
Original Note:
Today's Communication / Plan
-
Add lisinopril 2.5 mg daily
Decrease Eliquis to 2.5 mg twice a day
Discharge home on amiodarone 200 mg twice daily
New to Toprol 25 mg daily.
Discharge home on Lasix 20 mg p.o.
BMP 1 week as outpatient
Agrees to VN
Impression / Plan
-
PCP: Dr. Osman
Cardiology: Dr. Huntley
Impression:
Admitted with acute HF 08/19/2025
Acute HF reduced EF, proBNP 5950
Small B/L pleural effusions on CXR 08/19/2025
Elevated troponin, peak 0.063
Atrial flutter with rapid ventricular response, new diagnosis 08/19/2025
New left bundle branch block
Severe with mean gradient 35 mmHg by echo 06/26/2025
Venous stasis dermatitis
HTN
Rheumatoid arthritis
Echo 06/26/2025: EF 50%, severe with peak/mean 64/35 mmHg, mild to moderate MR, mild to moderate TR with PAP 54 mmHg
Echo 08/20/2025: EF 20 to 25% with global hypokinesis. Dilated right ventricle with mildly reduced RV systolic function. By atrial dilation. Heavily calcified aortic valve with reduced leaflet excursion.
Plan:
-Presented 08/19/2025 progressively worsening lower extremity edema found to be in acute heart failure as well as rapid atrial flutter.
Atrial flutter, new diagnosis this admission, unclear duration
-Telemetry reviewed by me. Appears to be in and out of atrial fibrillation however seems to be more sinus rhythm than atrial fibrillation this a.m.
-New to amiodarone 200 mg TID for rate control, Continue Toprol
-Likely will discharge on amiodarone 200 mg twice daily for 2 weeks then 200 mg daily after
-Patient was agreeable to initiation of Eliquis. Patient's weight has improved to 133.6 and continues to drop with diuresis. He is over the age of 89. He is frail. Therefore will de-escalate Eliquis 2.5 mg BID (age 89, Cre 0.8, wt 62.5 kg),
started 08/19/2025
- QTc stable at 495 ms
Heart failure with reduced ejection fraction by echo 08/20/2025
-proBNP 5950
-Newly reduced EF now 20 to 25%, previously 50% on echo 6 weeks ago
-Suspect atrial arrhythmia is part of what is driving HF and now found to have newly reduced EF of 20 to 25%. Possible tachycardia induced cardiomyopathy or from progressive .
-Ongoing diuresis with Lasix 20 mg IV BID. Transition to oral Lasix 20 mg daily upon d/c. Need to be cautious not to overdiuresis given severe aortic stenosis
-Blood pressure somewhat labile this admission but has improved being back in sinus rhythm. Add low-dose JAVIER inhibitor, Lisinopril 2.5 mg daily. If tolerates could consider transition to ARNI or addition of Aldactone as outpatient
-Potassium 3.5, mag 1.7, will replete both
-Could try adding SGLT2 inhibitor as outpatient but would hold during admission given hypotension and multiple new medications being started
-Triamterene/HCTZ discontinued this admission. Would not resume given newly reduced EF
-TSH 1.97
-Abnormal troponin, peak/flat at 0.063 troponin. Will be managed as a nonischemic myocardial injury secondary to heart failure and atrial fibrillation/flutter with rapid ventricular response
- Will need eventual ischemic evaluation with cardiac cath given new left bundle branch block, newly reduced ejection fraction and severe aortic stenosis. Discussed with patient staying over the weekend with hold of Eliquis and initiation IV
heparin versus being discharged with close office follow-up and arrangement of cardiac catheterization in the near future. Patient prefers to be discharged and follow-up in the office. He understands if his symptoms should worsen he should return
to emergency department
Plan was discussed with hospitalist, nursing, patient.
Patient stable for discharge to home with outpatient cardiology follow-up to be arranged. Patient agrees to go home with VN
[facility] 08/20/2025:
Patient came to the ER yesterday with increased LE edema and newly diagnosed A-fib prompting admission and now cardiology has been consulted. Patient was seen by Dr. Lazar in the office on 07/07/2025 and ECG from that visit was personally
reviewed by me today and shows SR. Patient has known severe with mean gradient 35 mmHg by echo 06/26/2025 and at his office visit on 07/07/2025 they discussed eventual TAVR workup following next echo planned for 12/2025. Patient says that he
suddenly started to feel much more tired over the last 1 to 2 weeks and had started to notice dyspnea on exertion. No sensation of palpitations and no chest pain. He noticed increased LE edema and then a rash on his legs and so he saw his PCP in
the office yesterday and they noticed the new A-fib and suspected heart failure prompting visit to the ER. Patient was admitted with a proBNP 5950 and he has small B/L pleural effusions on CXR. ECG in the ER again showed A-fib with RVR and patient
was started on Cardizem gtt, but then had bradycardia and gtt was stopped. Patient reports symptomatic improvement and says that he wishes to be discharged to home. Patient lives alone as his this past spring, but his son and one
of his daughters checks on him daily.
Progress Note - Regulatory Compliance Coordinator
Subjective
Date of Service: August 21, 2025
Patient seen and examined. Patient resting comfortably in bed. He reports he has been able to ambulate around the unit without chest pain, shortness of breath, dizziness or lightheadedness. He is on room air
Objective
Labs:
08/21/25 05:24
08/21/25 05:24
Labs
Hgb 10.2 g/dL (13.0-18.0) L 08/21/25 05:24
Hct 32.1 % (39.0-52.0) L 08/21/25 05:24
Plt Count 111 10^3/uL (130-400) L 08/21/25 05:24
Sodium 132 mmol/L (135-145) L 08/21/25 05:24
Potassium 3.5 mmol/L (3.5-5.1) 08/21/25 05:24
BUN 30 mg/dl (9-20) H 08/21/25 05:24
Creatinine 0.8 mg/dL (0.7-1.3) 08/21/25 05:24
Glucose 118 mg/dl (70-99) H 08/21/25 05:24
Troponins
08/19/25 08/19/25 08/20/25
15:57 21:59 04:21
Troponin I 0.053 H* 0.061 H* 0.063 H*
08/20/25 08/20/25
10:17 17:18
Troponin I 0.063 H* 0.058 H*
Vital Signs and I&O:
Vital Signs
Temp Pulse Resp BP Pulse Ox
97.5 F 75 18 119/57 99
08/21/25 07:00 08/21/25 07:00 08/21/25 07:00 08/21/25 07:00 08/21/25 07:00
Vital Signs
Temp Pulse Resp BP Pulse Ox
97.5 F 75 18 119/57 99
08/21/25 07:00 08/21/25 07:00 08/21/25 07:00 08/21/25 07:00 08/21/25 07:00
Intake & Output
08/19/25 08/20/25 08/21/25 08/22/25
06:59 06:59 06:59 06:59
Intake Total 720 / 720
Output Total 1100 / 1100 850 / 850 300 / 300
Balance -1100 / -1100 -130 / -130 -300 / -300
Physical Exam
Physical Exam
GEN: No distress, awake, Ox3, frail and elderly appearing
HEENT: supple, anicteric, mmm
LUNGS: CTA, no wheezes/rales
CV: Reg with occasional ectopy, S1/S2, 2/6 harsh radiating murmur
ABD: soft, BS+, NT/ND
EXT: No edema, clubbing or cyanosis, left leg wrapped in Javier bandages
NEURO: Gross non-focal
SKIN: No rash, warm, dry, pink
[2025-08-21] MEDS: KCL 40 MEQ PO (10:20)
[2025-08-21] MEDS: MAGNESIUM OXIDE 400 MG PO (10:20)
[2025-08-21] MEDS: ZESTRIL 2.5 MG PO (10:20)
--- NOTE | 2025-08-21 10:29 | W.PN.HOSP.TC ---
Today's Communication/Plan
-
dc home/VN
BMP in 1 week
Assessment / Plan
Assessment / Plan
Assessment:
New onset A. Fib with RVR
- TSH normal
- s/p Cardizem drip; stopped due to bradycardia
- now on oral Lopressor and Amiodarone
- Tele: NSR
- continue Eliquis
- DCA cards fu OP
Acute HFrEF
- Echo 06/26/25: Normal left ventricular size and wall thickness. Low normal left ventricular systolic function. LV ejection fraction is 50% by visual assessment. Stage I diastolic dysfunction suggestive of abnormal relaxation. Normal right
ventricular size and function. Indexed LA volume is moderately abnormal (42-48 mL/m2). Dilated right atrium. Thickened mitral valve leaflets with mild to moderate mitral regurgitation. Thickened and calcified aortic valve with restricted leaflet
motion. Severe aortic stenosis with peak/mean gradients across the aortic valve of 64/35 mmHg, respectively. The aortic valve by the Continuity equation is calculated at 0.6 cm sq., using a LVOT diameter of 2.2 cm. AV Dimensionless Index is 0.2. No
significant aortic regurgitation is seen.
Mild to moderate tricuspid regurgitation. Estimated pulmonary artery pressure of 54 mmHg assuming a right atrial pressure of 8 mmHg. Compared to previous echo 04/02/2024, the aortic stenosis has worsened. It was previously moderate with a mean
gradient of 18 and the aortic valve area of 1.0 cm sq, and now it is moderate to severe with the mean gradient of 35mmHg with an aortic valve area of 0.6 cm sq.
- Echo 08/20/2025: EF 20 to 25% with global hypokinesis. Dilated right ventricle with mildly reduced RV systolic function. By atrial dilation. Heavily calcified aortic valve with reduced leaflet excursion.
- BNP 5900
- s/p IV Lasix course; now on oral Lasix.
- GDMT: CASEY, BB.
- DCA cards fu OP
Aortic stenosis, severe
Echo 08/20/2025: EF 20 to 25% with global hypokinesis. Dilated right ventricle with mildly reduced RV systolic function. By atrial dilation. Heavily calcified aortic valve with reduced leaflet excursion.
- OP ischemic and TAVR evaluation
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
- wound care evaluation
Nonischemic myocardial injury in setting of acute CHF, Afib
- trend trops to peak
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
Essential hypertension
- stop triamterene/hydrochlorothiazide
Osteoporosis
- continue alendronate
BPH
- continue tamsulosin
Obstructive sleep apnea
Rheumatoid arthritis
- On Rituxan
- Continue hydroxychloroquine
- Continue budesonide
Chronic anemia
- Hemoglobin stable 11.1
DVT ppx: Eliquis
Code: Full
More than 30 minutes spent in discharge including
Final examination of the patient
Summarizing hospital stay
Instructions for continuing care to all relevant caregivers
Preparation of discharge records, prescriptions, and referral forms
Total time spent (in minutes): 41
Anticipated Discharge: Today
Subjective/Interval History
-
Date of Service: August 21, 2025
resting comfortably, no CP or SOB at rest or exertion
Objective Data
-
Labs:
Laboratory Results
08/21/25
05:24
WBC 5.9
Hgb 10.2 L
Hct 32.1 L
Plt Count 111 L
Sodium 132 L
Potassium 3.5
Chloride 99
Carbon Dioxide 29
BUN 30 H
Creatinine 0.8
Glucose 118 H
Calcium 8.5
Vital Signs:
Vital Signs
Temp Pulse Resp BP Pulse Ox
97.5 F 75 18 119/57 99
08/21/25 07:00 08/21/25 07:00 08/21/25 07:00 08/21/25 07:00 08/21/25 07:00
I&O
08/20/25 08/21/25 08/22/25
06:59 06:59 06:59
Intake Total 720 / 720
Output Total 1100 / 1100 850 / 850 300 / 300
Balance -1100 / -1100 -130 / -130 -300 / -300
Physical Exam
-
General: No Apparent Distress
HEENT: Normocephalic and Atraumatic
Respiratory: Negative Wheezes
Cardiac: Regular Rhythm and S1/S2
GI: Soft
Neuro: AO x 3
Psych: Calm
Data Reviewed
-
Total Time Spent with Patient (in minutes): 42
Labs: Labs Reviewed by me
--- NOTE | 2025-08-21 10:49 | W.DS.TRANS ---
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
-
Discharge Instructions:
Discharge Diagnosis/Procedures A. Fib, acute CHF, Aortic stenosis
Diet 2 Gram Sodium,Restrict fluids to 64 oz,Restrict
fluids to 48 oz
Activity As tolerated
Blood Work repeat BMP in 1 week - script given
Others Tests repeat Echo in 6 weeks
Other Services VN
Specialty Instructions Weigh Daily
Instructions:
Stand-Alone Forms:
Changes to Home Medications: Yes
Discharge Medications:
DC Medications w/original date entered in [employer]
acetaminophen 650 mg tablet,extended release 1,300 mg PO Q8HPRN PRN mild pain 08/19/25
alendronate 35 mg tablet 35 mg PO SA osteoporosis 08/19/25
budesonide 3 mg capsule,delayed,extended release 3 mg PO DAILY Anti-Inflammatory 08/19/25
hydroxychloroquine 200 mg tablet (Plaquenil) 200 mg PO DAILY rheumatoid arthritis 08/19/25
loperamide 2 mg capsule 2 mg PO BID diarrhea 08/19/25
omega 2-gkk-ndb-fish oil 1,200 mg (144 mg-216 mg) capsule (Fish Oil) 1 cap PO BID Supplement 08/19/25
rituximab 10 mg/mL concentrate,intravenous (Rituxan) See Rx Instructions .Route .COMPLEX Autoimmune Disorder 08/19/25
tamsulosin 0.4 mg capsule (Flomax) 0.8 mg PO QPM Urinary Issue 08/19/25
therapeutic multivitamin 1 tab PO DAILY Supplement 08/19/25
amiodarone 200 mg tablet 200 mg PO DIRECTED #45 tabs 08/21/25
apixaban 2.5 mg tablet (Eliquis) 2.5 mg PO BID #60 tabs 08/21/25
furosemide 20 mg tablet (Lasix) 20 mg PO DAILY #30 tabs 08/21/25
lisinopril 2.5 mg tablet 2.5 mg PO DAILY #30 tabs 08/21/25
metoprolol succinate 25 mg tablet,extended release 24 hr 25 mg PO BID #60 tabs 08/21/25
Home Medication Changes
stop triamterene/hydrochlorothiazide
Pending Results: No
Total time spent discharging patient (in min): 42
[2025-08-21 11:00] VITALS: BP 100/57
--- NOTE | 2025-08-21 11:38 | CM ---
Cm met with Christos and his daughter at bedside prior to discharge to home today. IMM provided, signed, and placed in chart.
[facility]N offered and pt chose [facility]. TT to Theresa Prado to make her aware of [facility] request.
Plan: Discharge to home with [facility]
--- NOTE | 2025-08-21 12:29 | VNURNOTE ---
Attempted to meet with patient to review [facility] services. He had already left hospital. Called his personal phone, unable to leave a message. Referral in [facility].
== END 2025-08-21 12:33 | disposition home health service (06) | DRG 291 ==
LOC: 3 WEST ACU 20:13
PROVIDERS: Student in an Organized Health Care Education/Training Program; ADMITTING PHYSICIAN Hospitalist; ATTENDING PHYSICIAN Internal Medicine; EMERGENCY PHYSICIAN Emergency Medicine; FAMILY PHYSICIAN Family Medicine; OTHER PHYSICIAN Internal Medicine Cardiovascular Disease
DX: I11.0 Hypertensive heart disease with heart failure (principal); I50.23 Acute on chronic systolic (congestive) heart failure; I48.92 Unspecified atrial flutter; I5A Non-ischemic myocardial injury (non-traumatic); I48.91 Unspecified atrial fibrillation; I35.0 Nonrheumatic aortic (valve) stenosis; G47.33 Obstructive sleep apnea (adult) (pediatric); N40.0 Benign prostatic hyperplasia without lower urinary tract symptoms; M06.9 Rheumatoid arthritis, unspecified; I44.7 Left bundle-branch block, unspecified; I07.1 Rheumatic tricuspid insufficiency; I87.2 Venous insufficiency (chronic) (peripheral); M81.0 Age-related osteoporosis without current pathological fracture; D64.9 Anemia, unspecified; Z60.2 Problems related to living alone; Z87.891 Personal history of nicotine dependence; Z63.4 Disappearance and death of family member; Z88.0 Allergy status to penicillin; Z88.2 Allergy status to sulfonamides; Z82.49 Family history of ischemic heart disease and other diseases of the circulatory system; Z79.83 Long term (current) use of bisphosphonates; Z88.3 Allergy status to other anti-infective agents; Z79.899 Other long term (current) drug therapy
CPT/HCPCS: 71046; 80048; 80053; 83735; 83880; 84443; 84484; 85025; 85027; 93005; 93308; 93970; 96374; 97163; 97167; 99285

== ENCOUNTER → 2025-08-27 11:55 | Outpatient (REF) | payer MEDICARE, BC, SELFPAY ==
[2025-08-27 13:46] LABS: Blood Urea Nitrogen 38 mg/dl (9-20); Calcium 8.8 mg/dl (8.4-10.2); Carbon Dioxide 29 mmol/L (22-30); Chloride 102 mmol/L (98-107); Glucose 114 mg/dl (70-99); Potassium 4.6 mmol/L (3.5-5.1); Sodium 135 mmol/L (135-145); eGFR > 60.00
== END ==
LOC: REG 11:55
PROVIDERS: ATTENDING PHYSICIAN Internal Medicine Cardiovascular Disease; FAMILY PHYSICIAN Family Medicine; REFERRING PHYSICIAN Internal Medicine
DX: I50.20 Unspecified systolic (congestive) heart failure (principal)
CPT/HCPCS: 80048

== ENCOUNTER 2025-09-01 06:33 | Day surgery (SDC) | payer MEDICARE, BC, SELFPAY ==
[2025-09-01] VITALS (13 sets, daily range): BP systolic 106–127; BP diastolic 50–67; BMI 22.6
[2025-09-01] MEDS: LOW STRENGTH ASPIRIN 81 MG PO (07:20)
[2025-09-01] MEDS: LASIX 40 MG IV (09:35)
--- NOTE | 2025-09-01 11:52 | ITS.CL.CATH ---
[employer] - Catheterization
Cardiac Catheterization
Procedure Report:
RIGHT AND LEFT HEART STUDY
Date of Procedure: September 01, 2025
Referring: Dr. Girish Huntley
PROCEDURES:
1. Right heart catheterization
2. Left heart catheterization with coronary angiography and single-plane left ventriculography
INDICATION: This is an 89-year-old gentleman with a past medical history notable for rheumatoid arthritis, hypertension, peripheral vascular disease, aortic stenosis, and recent admission to [facility] with heart failure and new onset of
atrial flutter. His EF in June by my review was mild to moderately reduced and was estimated at 20-25% by repeat echocardiogram in July 2025. His aortic stenosis appears significant and he is now referred for right and left heart
catheterization as we begin evaluating for eligibility for TAVR. He does have known vascular disease with 75% stenosis in an iliac artery on the left.
ACCESS: Right radial artery, 6 Tajik sheath and right brachial vein, 6 Tajik sheath
HEMODYNAMICS : mmHg
RA (m) : 17
RV (s/d) : 52/11, 17
PA (s/d, m) : 58/22, 37
PCWP (m) : 24
AO (s/d, m) : 130/64, 89
LV (s/d) : 151/20
LVEDP : 28
Estimated Bernabe Cardiac Output: 5.1 L / min and Cardiac Index: 2.8 L/ min / m-2
Systemic vascular resistance: 14.1 Wood units or 1129 [id number](-5)
Pulmonary vascular resistance: 2.5 Wood units or 204 [id number]-ocy-te(-5)
AORTIC VALVE: (Low output low gradient)
Mean gradient: 26 mmHg
CORONARY FINDINGS :
Dominance: Right
LEFT MAIN: Normal
LEFT ANTERIOR DESCENDING: The LAD arises normally from the left main and runs in the anterior interventricular groove. The LAD has tandem 60% stenoses in its midportion. The mid to distal vessel has only minor irregularities and wraps around the
apex
CIRCUMFLEX: The circumflex supplies a small OM1 and OM 2. The mid circumflex is heavily calcified with a 60-70% stenosis in the mid circumflex near the origin of OM 3. The circumflex continues in the AV groove supplying several small
posterolateral branches.
RIGHT CORONARY ARTERY: The right coronary artery is a medium caliber dominant vessel with a 50% mid stenosis. The mid to distal RCA has only minor irregularities. The PDA patent
VENTRICULOGRAPHY: Left ventriculography is performed in an GRUBER projection. The digital single-plane left ventricular ejection fraction is visually estimated at 20%. The ventricle is dilated and globally hypokinetic
SEDATION: 47 minutes of procedural sedation was utilized. An independent spanish medical interpreter was present to assist with and help manage the patient's level of consciousness and physiologic status
RADIATION SUMMARY: Fluoro Time (min): 5.5, Dose (mGy): 283, DAP (Gy.cm2) : 19.9
CONCLUSIONS
1. Low output low gradient aortic stenosis
2. Dilated cardiomyopathy
3. Coronary artery disease with heavily calcified high-grade mid circumflex stenosis and tandem mid LAD stenoses
RECOMMENDATIONS
1. Will review echocardiogram and discuss at upcoming valve clinic meeting.
2. The patient and his son absolutely deny any complaints of substernal chest pressure
Copy to: Dr. Girish Huntley
== END 2025-09-01 14:15 | disposition home or self-care (01) ==
LOC: CATH 06:33
PROVIDERS: ATTENDING PHYSICIAN Internal Medicine Interventional Cardiology; FAMILY PHYSICIAN Family Medicine; OTHER PHYSICIAN Internal Medicine Cardiovascular Disease
DX: I35.0 Nonrheumatic aortic (valve) stenosis (principal); I48.92 Unspecified atrial flutter; I73.9 Peripheral vascular disease, unspecified; I11.0 Hypertensive heart disease with heart failure; I50.22 Chronic systolic (congestive) heart failure; M06.9 Rheumatoid arthritis, unspecified; I25.10 Atherosclerotic heart disease of native coronary artery without angina pectoris; I42.0 Dilated cardiomyopathy; I70.8 Atherosclerosis of other arteries
CPT/HCPCS: 93460; 99152; 99153; C1769; C1894; Q9967

== ENCOUNTER → 2025-09-07 10:56 | Outpatient (REF) | payer MEDICARE, BC, SELFPAY ==
[2025-09-07 11:27] LABS: Blood Urea Nitrogen 30 mg/dl (9-20); Calcium 8.6 mg/dl (8.4-10.2); Carbon Dioxide 29 mmol/L (22-30); Chloride 107 mmol/L (98-107); Glucose 92 mg/dl (70-99); Potassium 3.9 mmol/L (3.5-5.1); Sodium 138 mmol/L (135-145); eGFR > 60.00
== END ==
LOC: OLAB 10:56
PROVIDERS: ATTENDING PHYSICIAN Internal Medicine Cardiovascular Disease; FAMILY PHYSICIAN Family Medicine
DX: I35.2 Nonrheumatic aortic (valve) stenosis with insufficiency (principal); I50.22 Chronic systolic (congestive) heart failure
CPT/HCPCS: 80048

== ENCOUNTER → 2025-09-14 10:45 | Outpatient (REF) | payer MEDICARE, BC, SELFPAY ==
[2025-09-14 12:24] LABS: Albumin 3.5 g/dl (3.5-5.0); Blood Urea Nitrogen 26 mg/dl (9-20); Calcium 8.7 mg/dl (8.4-10.2); Carbon Dioxide 32 mmol/L (22-30); Chloride 99 mmol/L (98-107); Glucose 94 mg/dl (70-99); Potassium 3.9 mmol/L (3.5-5.1); Sodium 131 mmol/L (135-145); eGFR > 60.00
== END ==
LOC: OLAB 10:45
PROVIDERS: ATTENDING PHYSICIAN Internal Medicine Cardiovascular Disease; FAMILY PHYSICIAN Family Medicine
DX: I10 Essential (primary) hypertension (principal); I48.91 Unspecified atrial fibrillation
CPT/HCPCS: 80069

== ENCOUNTER → 2025-09-22 09:17 | Outpatient (REF) | payer MEDICARE, BC, SELFPAY | LOC: RAD 09:17 | PROVIDERS: ATTENDING PHYSICIAN Nurse Practitioner Acute Care; FAMILY PHYSICIAN Family Medicine | DX: I35.0 Nonrheumatic aortic (valve) stenosis (principal) | CPT/HCPCS: 74174; 75572; Q9967 ==

== ENCOUNTER → 2025-09-28 11:26 | Outpatient (REF) | payer MEDICARE, BC, SELFPAY ==
[2025-09-28 12:08] LABS: Albumin 3.8 g/dl (3.5-5.0); Blood Urea Nitrogen 35 mg/dl (9-20); Calcium 9.1 mg/dl (8.4-10.2); Carbon Dioxide 33 mmol/L (22-30); Chloride 99 mmol/L (98-107); Glucose 107 mg/dl (70-99); Potassium 4.4 mmol/L (3.5-5.1); Sodium 135 mmol/L (135-145); eGFR > 60.00
== END ==
LOC: OLAB 11:26
PROVIDERS: ATTENDING PHYSICIAN Internal Medicine Cardiovascular Disease
DX: I48.91 Unspecified atrial fibrillation (principal)
CPT/HCPCS: 36415; 80069

== ENCOUNTER → 2025-10-06 11:02 | Outpatient (REF) | payer MEDICARE, BC, SELFPAY ==
[2025-10-06 11:37] LABS: Hematocrit 30.7 % (39.0-52.0); Hemoglobin 9.6 g/dL (13.0-18.0); Mean Corp Hgb Conc. 31.3 g/dL (33.0-37.0); Mean Corpuscular Volume 93.3 fL (80.0-94.0); Nucleated Red Blood Cells % 0 % (-); Platelet Count 108 10^3/uL (130-400); Red Cell Dist. Width 15.2 % (11.5-14.5)
[2025-10-06 12:10] LABS: ALT (SGPT) 43 U/L (0-50); AST (SGOT) 42 U/L (17-59); Albumin 3.6 g/dl (3.5-5.0); Alkaline Phosphatase 71 U/L (38-126); Blood Urea Nitrogen 52 mg/dl (9-20); Calcium 8.8 mg/dl (8.4-10.2); Carbon Dioxide 31 mmol/L (22-30); Chloride 100 mmol/L (98-107); Glucose 158 mg/dl (70-99); Potassium 3.6 mmol/L (3.5-5.1); Sodium 136 mmol/L (135-145); Total Protein 6.3 g/dl (6.3-8.2); eGFR 57.81
== END ==
LOC: SDSPAT 11:02
PROVIDERS: ATTENDING PHYSICIAN Internal Medicine Interventional Cardiology; OTHER PHYSICIAN Internal Medicine Cardiovascular Disease
DX: I25.10 Atherosclerotic heart disease of native coronary artery without angina pectoris (principal)
CPT/HCPCS: 36415; 80053; 83880; 85025; 93005

== ENCOUNTER 2025-10-09 10:25 | Day surgery (SDC) | payer MEDICARE, BC, SELFPAY ==
[2025-10-06 10:53] VITALS: BMI 20.9
[2025-10-09] VITALS (15 sets, daily range): BP systolic 91–127; BP diastolic 57–74
[2025-10-09] MEDS: LOW STRENGTH ASPIRIN 324 MG PO (11:17)
[2025-10-09 14:35] LABS: ACT-LR - POC 287 Seconds (116-155)
[2025-10-09 14:47] LABS: ACT-LR - POC 368 Seconds (116-155)
--- NOTE | 2025-10-09 16:17 | PTCARENOTE ---
Received patient from the cardiac cath technician after PCI of LAD and circ. Radial band in place right wrist, wrist area ecchymotic, fingers are cool with palpable radial pulse and pulse ox of 97% on RA. Patient denies any pain, just feels exhausted. Oriented to
the room and plan of care, admission assessment updated. Call kurtz in reach, family at the bedside.
--- NOTE | 2025-10-09 16:33 | CM ---
Chart reviewed. Patient is independent of ADLS, lives alone in a 2 STH, 1st level set up, ambulates with a RW and SPC. Patient is current with [facility]. Referral sent to resume services when discharged. CM to follow
--- NOTE | 2025-10-09 16:53 | W.DS.TRANS ---
DC Summary - Bill Hiker
-
Discharge Instructions:
Discharge Diagnosis/Procedures Angioplasty with stent to LAD and shockwave/
angioplasty with stent to LCX
Diet Low Cholesterol
Driving Restrictions No driving for 24 hours
Others Tests YOU WILL NEED DENTAL CLEARANCE PRIOR TO YOUR
VALVE REPLACEMENT
Other Services Cardiac Rehab
Instructions:
Stand-Alone Forms: DC Instructions- Cath/EP Lab
Changes to Home Medications: Yes
Discharge Medications:
DC Medications w/original date entered in [employer]
acetaminophen 650 mg tablet,extended release 1,300 mg PO Q8HPRN PRN mild pain 08/19/25
alendronate 35 mg tablet 35 mg PO SA osteoporosis 08/19/25
budesonide 3 mg capsule,delayed,extended release 3 mg PO DAILY Anti-Inflammatory 08/19/25
hydroxychloroquine 200 mg tablet (Plaquenil) 200 mg PO DAILY rheumatoid arthritis 08/19/25
loperamide 2 mg capsule 2 mg PO PRN PRN DIARRHEA 08/19/25
omega 0-hpi-rou-fish oil 1,200 mg (144 mg-216 mg) capsule (Fish Oil) 1 cap PO BID Supplement 08/19/25
rituximab 10 mg/mL concentrate,intravenous (Rituxan) See Rx Instructions .Route .COMPLEX RA 08/19/25
therapeutic multivitamin 1 tab PO DAILY Supplement 08/19/25
apixaban 2.5 mg tablet (Eliquis) 2.5 mg PO BID #60 tabs 08/21/25
cholecalciferol (vitamin D3) 25 mcg (1,000 unit) tablet (Vitamin D3) 25 mcg PO DAILY 09/01/25
lifitegrast 5 % eye drops in a dropperette (Xiidra) 1 drp ophthalmic (eye) BID 09/01/25
amiodarone 200 mg tablet 200 mg PO DAILY 10/02/25
furosemide 20 mg tablet (Lasix) 40 mg PO BID 10/02/25
metolazone 2.5 mg PO DAILY PRN weight gain 10/06/25
aspirin 81 mg chewable tablet 81 mg PO DAILY #1 tab 10/09/25
atorvastatin 40 mg tablet 40 mg PO QPM #30 tabs 10/09/25
clopidogrel 75 mg tablet 75 mg PO DAILY #90 tabs 10/09/25
tamsulosin 0.4 mg capsule 0.8 mg PO HS 10/09/25
Home Medication Changes
new to plavix, atorvastatin, aspirin (one week)
Pending Results: No
[2025-10-09] MEDS: LASIX 40 MG PO (17:18)
[2025-10-09] MEDS: LIPITOR 40 MG PO (17:21)
--- NOTE | 2025-10-09 17:37 | ITS.CL.CATH ---
[employer] - Catheterization
Cardiac Catheterization
Procedure Report:
ANGIOPLASTY REPORT
Date of Procedure: October 09, 2025
Referring: Dr. Girish Huntley
INDICATIONS: LV dysfunction and symptomatic aortic stenosis
PROCEDURES:
1. Successful stenting of the mid LAD with a 3.0 x 34 mm Ady stent that was postdilated to high-pressure's with a 3.5x20 mm noncompliant balloon to 16 huber distally and 20 huber in the proximal midportion of the stent
2. Successful balloon angioplasty, shockwave lithotripsy, and stenting of the mid circumflex with a 3.0 x 15 mm Belen stent that was postdilated with a 3.25 mm noncompliant balloon
ACCESS: Right radial artery, 6 Latvian sheath
ANGIOPLASTY REPORT: Arterial access was obtained in the right radial artery and a 6 Latvian sheath was inserted. A 600 mg loading dose of clopidogrel was administered at the beginning of the interventional procedure and intravenous heparin was given
while the ACT was monitored throughout the procedure and maintained within therapeutic limits.
The origin of the left main was cannulated with a 6 Latvian XB 3.5 guiding catheter and a BMW guidewire was advanced across the mid LAD stenosis. Predilation was performed with with a 2.25 x 20 mm Euphora balloon at 8 huber and again more proximally
at 8 huber. The balloon appeared well-expanded. We then attempted to advance a 3.0 x 34 mm Belen stent across the diseased segment in the mid LAD but unfortunately the stent would not cross and was removed. We redilated the artery with a 2.5 x 20 mm
Euphora balloon to 18 huber. The noncompliant balloon appeared well-expanded and the stent still would not cross. A GuideLiner was then advanced into the proximal LAD to provide additional support to deliver the stent which would not cross. The 2.5
x 20 mm NC Euphora balloon was then advanced over the guidewire and positioned in an area of heavy calcification in the mid LAD and the balloon was inflated to 22 huber achieving good expansion. Fortunately, the 3.0 x 34 mm Ady stent now easily
delivered and was positioned with angiographic and fluoroscopic guidance in the mid LAD. The stent was implanted at nominal pressures. Postdilation was performed with a 3.5 x 20 mm Euphora balloon which was inflated to 16 huber distally and 20 huber
in the proximal and midportion of the stent.
Attention was then turned to the heavily calcified high-grade stenosis in the circumflex. The BMW guidewire was redirected into the circumflex and the GuideLiner was advanced into the proximal circumflex to provide support for catheter delivery.
Balloon predilation was performed with a 2.5 x 12 mm NC Euphora balloon. The Euphora balloon had residual stenosis in the midportion of the balloon when inflated to nominal pressures. At this point the decision was made to perform intracoronary
lithotripsy with a Shockwave balloon. A 3.0 x 12 mm SHOCKWAVE lithotripsy balloon was advanced across the stenosis and serial pulses were delivered until the full 120 therapies were utilized. During each balloon inflation the meters were moved
slightly proximal or distal to the prior site and gradually the balloon appeared to expand with additional therapies. The SHOCKWAVE balloon was removed after the therapy was delivered and a 3.0 x 15 mm NC balloon was inflated at the site of
treatment and appeared well-expanded. This was followed by placement of a 3.0 x 15 mm Ady stent that was implanted at nominal pressures and postdilated with a 3.25 mm noncompliant balloon with a nice angiographic result
COMPLICATIONS: None
SEDATION: 82 minutes of procedural sedation was utilized. An independent medical videographer was present to assiste with and help manage the patient's level of consciousness and physiologic status
RADIATION SUMMARY: Fluoro Time (min): 22.5, Dose (mGy): 1002, DAP (Gy.cm2) : 66.2
CONCLUSION
1. Successful stenting of the mid LAD with a 3.0 x 34 mm Belen stent that was postdilated to high-pressure's with a 3.5 mm noncompliant balloon
2. Successful stenting of the circumflex extending into a terminal obtuse marginal branch. SHOCKWAVE lithotripsy was performed with a 3.0 x 12 mm balloon and was followed by placement of a 3.0 x 15 mm Belen stent that was implanted at nominal
pressures and postdilated with a 3.25 mm noncompliant balloon
RECOMMENDATIONS
1. GI prophylaxis will be added to medical regiment with Protonix 40 mg daily
2. Aspirin, Plavix, and Eliquis for 5 days followed by Plavix and Eliquis
3. He is scheduled to see CT surgery as part of ongoing TAVR evaluation
Copy to: Dr. Girish Huntley
--- NOTE | 2025-10-09 17:49 | PTCARENOTE ---
Patient having some oozing from the right radial band. Wrist ecchymotic but strong radial pulse palpable and no signs of hematoma. Wound care done to bilateral lower extremities. Toes on his right foot noted to be dusky, patient states that his VN
noticed that this week, but that they 'didn't look that bad'. TT to Dr. Gutierrez re: oozing from band and dusky toes. 2ml of air added to radial band as instructed. Call kurtz in reach, family at the bedside.
[2025-10-09] MEDS: FLOMAX 0.8 MG PO (21:29)
[2025-10-10 03:23] VITALS: BP 99/61
[2025-10-10 03:54] VITALS: BMI 20.7
[2025-10-10] MEDS: TYLENOL 650 MG PO (04:01)
[2025-10-10 04:03] LABS: Hematocrit 28.9 % (39.0-52.0); Hemoglobin 9.2 g/dL (13.0-18.0); Mean Corp Hgb Conc. 31.8 g/dL (33.0-37.0); Mean Corpuscular Volume 92.0 fL (80.0-94.0); Platelet Count 116 10^3/uL (130-400); Red Cell Dist. Width 14.8 % (11.5-14.5)
[2025-10-10 04:26] LABS: Blood Urea Nitrogen 58 mg/dl (9-20); Calcium 8.8 mg/dl (8.4-10.2); Carbon Dioxide 30 mmol/L (22-30); Chloride 100 mmol/L (98-107); Estimated Creatinine Clearance 39 ml/min; Glucose 120 mg/dl (70-99); HDL Cholesterol 58 mg/dl; LDL Cholesterol, Calculated 57 mg/dl; Potassium 3.1 mmol/L (3.5-5.1); Sodium 135 mmol/L (135-145); Very Low Density Lipoprotein 9 mg/dl (0-30); eGFR 57.81
[2025-10-10] MEDS: KCL 40 MEQ PO (05:49)
--- NOTE | 2025-10-10 06:30 | PTCARENOTE ---
Addendum entered by Dayami York RN 10/10/25 06:35:
K 3.1 with this morning labs, geographic information system surveyor PA made aware. New order for potassium 40mEq administered.
Original Note:
Assumed care on pt at change of shift, aaox3, resting bed with no c/o pain or SOB. R band intact and inflated to R wrist, no bleeding or hematoma noted, some ecchymosis. Removed R band at 2245, gauze and tegaderm applied. Pox 98% R hand, denies
pain or decreased sensation, good radial pulses. Afib on tele, HR 80-100's, bp stable. R foot toes dusky and cold, weak pedal pulse compared to L foot, denies pain, Dr. Gutierrez was made aware previous shift, no new orders. Call kurtz within reach, POC
ongoing and in agreement with pt.
[2025-10-10 07:27] VITALS: BP 99/64
[2025-10-10] MEDS: PLAQUENIL 200 MG PO (08:55)
[2025-10-10] MEDS: PLAVIX 75 MG PO (08:55)
[2025-10-10] MEDS: LASIX 40 MG PO (08:55)
[2025-10-10] MEDS: PACERONE 200 MG PO (08:55)
[2025-10-10] MEDS: LOW STRENGTH ASPIRIN 81 MG PO (08:55)
[2025-10-10] MEDS: ENTOCORT EC 3 MG PO (08:56)
[2025-10-10] MEDS: ELIQUIS 2.5 MG PO (08:56)
[2025-10-10] MEDS: PROTONIX 40 MG PO (08:56)
--- NOTE | 2025-10-10 10:05 | W.PN.CARDCBS ---
Today's Communication / Plan
-
Discharge home with outpatient cardiac follow-up.
Impression / Plan
-
PCP: Dr. Osman
Cardiology: Dr. Huntley
Impression:
Elective cardiac catheterization for PCI LAD and circumflex 10/09/[address] Gutierrez, radial approach
Successful stenting of the mid LAD with a 3.0 x 34 mm Odessa stent that was postdilated to high-pressure's with a 3.5 mm noncompliant balloon. Successful stenting of the circumflex extending into a terminal obtuse marginal branch. SHOCKWAVE
lithotripsy was performed with a 3.0 x 12 mm balloon and was followed by placement of a 3.0 x 15 mm Odessa stent that was implanted at nominal pressures and postdilated with a 3.25 mm noncompliant balloon
Low flow-Severe with mean gradient 35 mmHg by echo 06/26/2025, undergoing TAVR
Biventricular cardiomyopathy with reduced ejection fraction, valvular and ischemic.
Left ventricular ejection fraction by echocardiogram August 15 2520-25% with dilated RV and reduced RV systolic function
Recent heart failure admission July 2025, proBNP 5950
Atrial fibrillation, new diagnosis 08/19/2025
Eliquis anticoagulation
New left bundle branch block
PAD suspected
Venous stasis dermatitis/ venous stasis
Hyperlipidemia
Rheumatoid arthritis, on rituximab Rituxan and hydroxychloroquine
Chronic anemia
Gait dysfunction
Echo 06/26/2025: EF 50%, severe with peak/mean 64/35 mmHg, mild to moderate MR, mild to moderate TR with PAP 54 mmHg
Echo 08/20/2025: EF 20 to 25% with global hypokinesis. Dilated right ventricle with mildly reduced RV systolic function. By atrial dilation. Heavily calcified aortic valve with reduced leaflet excursion.
Impression:
Christos presented electively for left heart catheterization with Dr. Gutierrez October 09, 2025 and had successful Successful stenting of the mid LAD with a 3.0 x 34 mm Ady stent that was postdilated to high-pressure's with a 3.5x20 mm noncompliant
balloon to 16 huber distally and 20 huber in the proximal midportion of the stent and Successful balloon angioplasty, shockwave lithotripsy, and stenting of the mid circumflex with a 3.0 x 15 mm Ady stent that was postdilated with a 3.25 mm
noncompliant balloon
- Overnight no chest pain or pressure.
- Radial site intact.
- Plan for plan for aspirin/Plavix and Eliquis for 5 days followed by Plavix/Eliquis
- Repeat basic metabolic profile and CBC next week. Orders placed in [facility]
-Continue statin With lipid profile this admission at goal. LDL 57 mg/dL
Low-flow�severe aortic stenosis undergoing TAVR evaluation
- Has outpatient consultation with Dr. Dev Cameron, CT surgery next Sunday
Bluish discoloration of toes following cardiac catheterization which has improved but not resolved this morning.
- No pain, no motor or sensory deficits.
- Pulses by Doppler, weaker right versus left.
-Do not suspect embolization given lack of pain. Symptoms likely related to venous insufficiency.
- Discussed through [place] text with vascular surgery and updated TAVR team
- Suspect PAD and would consider outpatient evaluation
Hypotension/borderline blood pressures
- He denies symptoms of syncope or lightheadedness
- All antihypertensive therapies except for Lasix held
- Ambulating in unit without symptoms
- Monitor closely; could consider use of midodrine if needed as an outpatient
New diagnosis atrial flutter/atrial fibrillation, currently in asymptomatic atrial fibrillation
- Continue Eliquis anticoagulation. Continue amiodarone.
- Future consideration for cardioversion/ablation plus or minus Watchman once aortic valve has been addressed
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
- proBNP 6360
- Patient states shortness of breath has improved and legs are the best 'they have ever looked.'
-Continue Lasix 40 mg twice daily. Add outpatient KCl 20 mEq daily.
- Continue current medical therapy. Could consider outpatient addition of SGLT2 inhibitor however we will hold off for now
Discharge plan discussed with patient and his daughter at bedside.
Outpatient follow-up with CT surgery planned next week
Repeat labs placed in [facility]
Progress Note - Investigative Shopper
Subjective
Date of Service: October 10, 2025
Seen and examined sitting out of bed to chair. Overall feels well and ambulated on the floor without dizziness/lightheadedness. No chest pain or pressure. Shortness of breath is stable. Concern for bluish discoloration of bilateral feet
Objective
Labs:
10/10/25 03:28
10/10/25 03:28
Labs
Hgb 9.2 g/dL (13.0-18.0) L 10/10/25 03:28
Hct 28.9 % (39.0-52.0) L 10/10/25 03:28
Plt Count 116 10^3/uL (130-400) L 10/10/25 03:28
Sodium 135 mmol/L (135-145) 10/10/25 03:28
Potassium 3.1 mmol/L (3.5-5.1) L 10/10/25 03:28
BUN 58 mg/dl (9-20) H 10/10/25 03:28
Creatinine 1.2 mg/dL (0.7-1.3) 10/10/25 03:28
Glucose 120 mg/dl (70-99) H 10/10/25 03:28
Vital Signs and I&O:
Vital Signs
Temp Pulse Resp BP Pulse Ox
97.6 F 102 18 99/64 100
10/10/25 07:30 10/10/25 07:30 10/10/25 07:30 10/10/25 07:27 10/10/25 07:30
Vital Signs
Temp Pulse Resp BP Pulse Ox
97.6 F 102 18 99/64 100
10/10/25 07:30 10/10/25 07:30 10/10/25 07:30 10/10/25 07:27 10/10/25 07:30
Intake & Output
10/08/25 10/09/25 10/10/25 10/11/25
06:59 06:59 06:59 06:59
Intake Total 480 / 480
Output Total 1120 / 1120 300 / 300
Balance -640 / -640 -300 / -300
Physical Exam
Physical Exam
General: No acute distress, AAOX3
Heart: Irregularly irregular positive S1/S2, 2/6SM
Lungs: Bronchovesicular breath sounds. Decreased bases. Fine crackles right base. No wheezes. Increased thoracic kyphosis
Abd: Positive BS, NT/ND, neg rebound/rigidity/guarding
Ext: +1 edema with chronic venous stasis changes. Right toes bluish with demarcation at the crease. No skin breakdown. Moving toes. No pain. Pulses with Doppler
Neuro: nonfocal
[2025-10-10 10:34] VITALS: BP 91/61
--- NOTE | 2025-10-10 11:30 | PTCARENOTE ---
Dr. Angel made aware of right foot/toe discoloration. Pt denies numbness, tingling or pain. Pulses obtained by doppler. No treatment at present. Pt awaiting discharge.
[2025-10-10 11:50] VITALS: BP 98/62
[2025-10-10] MEDS: COLACE 100 MG PO (11:53)
[2025-10-10] MEDS: MIRALAX 17 GRAMS PO (11:53)
--- NOTE | 2025-10-10 13:31 | W.DS.TRANS ---
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
-
Discharge Instructions:
Discharge Diagnosis/Procedures Angioplasty with stent to LAD and shockwave/
angioplasty with stent to LCX
Diet Low Cholesterol
Driving Restrictions No driving for 24 hours
Blood Work Repeat BMP, Mg, CBC next week- orders placed
through [facility] for [facility] lab
Others Tests YOU WILL NEED DENTAL CLEARANCE PRIOR TO YOUR
VALVE REPLACEMENT
Other Services Cardiac Rehab
Instructions:
Stand-Alone Forms: DC Instructions- Cath/EP Lab
Changes to Home Medications: Yes
Discharge Medications:
DC Medications w/original date entered in [employer]
acetaminophen 650 mg tablet,extended release 1,300 mg PO Q8HPRN PRN mild pain 08/19/25
alendronate 35 mg tablet 35 mg PO SA osteoporosis 08/19/25
budesonide 3 mg capsule,delayed,extended release 3 mg PO DAILY Anti-Inflammatory 08/19/25
hydroxychloroquine 200 mg tablet (Plaquenil) 200 mg PO DAILY rheumatoid arthritis 08/19/25
loperamide 2 mg capsule 2 mg PO PRN PRN DIARRHEA 08/19/25
omega 5-vpk-trv-fish oil 1,200 mg (144 mg-216 mg) capsule (Fish Oil) 1 cap PO BID Supplement 08/19/25
rituximab 10 mg/mL concentrate,intravenous (Rituxan) See Rx Instructions .Route .COMPLEX RA 08/19/25
therapeutic multivitamin 1 tab PO DAILY Supplement 08/19/25
apixaban 2.5 mg tablet (Eliquis) 2.5 mg PO BID #60 tabs 08/21/25
cholecalciferol (vitamin D3) 25 mcg (1,000 unit) tablet (Vitamin D3) 25 mcg PO DAILY 09/01/25
lifitegrast 5 % eye drops in a dropperette (Xiidra) 1 drp ophthalmic (eye) BID 09/01/25
amiodarone 200 mg tablet 200 mg PO DAILY 10/02/25
furosemide 20 mg tablet (Lasix) 40 mg PO BID 10/02/25
metolazone 2.5 mg PO DAILY PRN weight gain 10/06/25
aspirin 81 mg chewable tablet 81 mg PO DAILY #1 tab 10/09/25
atorvastatin 40 mg tablet 40 mg PO QPM #30 tabs 10/09/25
clopidogrel 75 mg tablet 75 mg PO DAILY #90 tabs 10/09/25
tamsulosin 0.4 mg capsule 0.8 mg PO HS 10/09/25
Home Medication Changes
Please take Aspirin, Plavix and Eliquis for 5 days and then stop aspirin and continue Plavix and Eliquis
Please start taking your home supply of KCL 20mEq po daily
Pending Results: No
Additional Pending Results:
Please have nonfasting lab work next week- orders placed for lab.
[2025-10-12 07:49] LABS: ACT-LR - POC > 397 Seconds (116-155)
== END 2025-10-10 13:18 | disposition home or self-care (01) ==
LOC: CATH 10:25
PROVIDERS: Nurse Practitioner Adult Health; ATTENDING PHYSICIAN Internal Medicine Interventional Cardiology; FAMILY PHYSICIAN Family Medicine; OTHER PHYSICIAN Internal Medicine Cardiovascular Disease
DX: I25.10 Atherosclerotic heart disease of native coronary artery without angina pectoris (principal); D64.9 Anemia, unspecified; I11.0 Hypertensive heart disease with heart failure; D69.6 Thrombocytopenia, unspecified; E78.5 Hyperlipidemia, unspecified; I35.0 Nonrheumatic aortic (valve) stenosis; I35.8 Other nonrheumatic aortic valve disorders; I42.0 Dilated cardiomyopathy; I44.30 Unspecified atrioventricular block; I44.7 Left bundle-branch block, unspecified; I48.91 Unspecified atrial fibrillation; I48.92 Unspecified atrial flutter; I49.3 Ventricular premature depolarization; I50.22 Chronic systolic (congestive) heart failure; I87.2 Venous insufficiency (chronic) (peripheral); I87.8 Other specified disorders of veins; M06.9 Rheumatoid arthritis, unspecified; M81.0 Age-related osteoporosis without current pathological fracture; N40.0 Benign prostatic hyperplasia without lower urinary tract symptoms; Z87.891 Personal history of nicotine dependence; Z79.01 Long term (current) use of anticoagulants; Z79.620 Long term (current) use of immunosuppressive biologic; Z79.899 Other long term (current) drug therapy; Z88.0 Allergy status to penicillin; Z88.1 Allergy status to other antibiotic agents; Z88.2 Allergy status to sulfonamides; Z96.641 Presence of right artificial hip joint; Z79.82 Long term (current) use of aspirin; Z79.02 Long term (current) use of antithrombotics/antiplatelets
CPT/HCPCS: 92972; 99152; 99153; C1761; 36415; 80048; 80061; 85027; 85347; 93005; C1725; C1769; C1874; C1894; C9600; Q9967

== ENCOUNTER 2025-10-20 22:51 | Inpatient (IN) | payer MEDICARE, BC, SELFPAY ==
[2025-10-20] VITALS (7 sets, daily range): BP systolic 105–121; BP diastolic 68–83; BMI 23.2
[2025-10-20 17:22] LABS: Hematocrit 31.2 % (39.0-52.0); Hemoglobin 9.8 g/dL (13.0-18.0); Mean Corp Hgb Conc. 31.4 g/dL (33.0-37.0); Mean Corpuscular Volume 92.6 fL (80.0-94.0); Nucleated Red Blood Cells % 0 % (-); Platelet Count 121 10^3/uL (130-400); Red Cell Dist. Width 14.7 % (11.5-14.5)
[2025-10-20 17:49] LABS: ALT (SGPT) 45 U/L (0-50); AST (SGOT) 53 U/L (17-59); Albumin 3.7 g/dl (3.5-5.0); Alkaline Phosphatase 80 U/L (38-126); Blood Urea Nitrogen 69 mg/dl (9-20); Calcium 8.9 mg/dl (8.4-10.2); Carbon Dioxide 27 mmol/L (22-30); Chloride 104 mmol/L (98-107); Glucose 150 mg/dl (70-99); Potassium 4.4 mmol/L (3.5-5.1); Sodium 137 mmol/L (135-145); Total Protein 6.4 g/dl (6.3-8.2); Troponin I 0.119 ng/ml; eGFR 40.93
--- NOTE | 2025-10-20 20:08 | ED.GENMED ---
History of Present Illness
General
Chief Complaint: Weakness
Source: patient
Exam Limitations: none
Time Seen by Provider: 10/20/25 19:09
Nursing documentation reviewed up to this point in time: agreed with
History of Present Illness
History of Present Illness:
Patient status post cardiac stent placement on 10/09, scheduled for aortic valve replacement next month, presents to ED secondary to worsening shortness of breath and weakness since being discharged home. Denies chest pain. Denies fever or chills.
Denies coughing. Patient reports significant decreased appetite as well. Denies vomiting or diarrhea. Patient states that he is unable to walk couple of feet without having to stop, due to generalized weakness and shortness of breath.
Review of Systems
Review of Systems
Allergies reviewed?: Yes
All Other Systems: ROS reviewed and negative except as documented in HPI and ROS
Constitutional: Reports no symptoms
Respiratory: Reports trouble breathing; Denies cough
Cardiac: Reports no symptoms
ABD/GI: Reports no symptoms; Denies vomiting or diarrhea
Musculoskeletal: Reports no symptoms
Skin: Reports no symptoms
Neurological: Reports weakness
Phy Exam
Physical Exam
Physical Exam:
Physical Exam
General: mild distress, not acutely ill. afebrile
Head: nc/at. eomi
Neck: supple. jvd
Heart: tachycardic, regular
Lungs: no acute respiratory distress. diminished breath sounds bilaterally
Abdomen: normal bowel sounds. not tender. no CVAT
Neuro: alert and oriented x 3. no focal neurological deficits
Skin: B/L edema with serosanguineous drainage, wrapped in dressing
Psychiatric: well kept. interactive and cooperative
Extremities: b/l LE edema. no calf tenderness.
Course
Orders/Labs/Results
Orders:
Orders
10/20/25 17:00
EKG [Electrocardiogram (*1)] Urgent
Reason for Study: Shortness of Breath
10/20/25 17:01
EKG- Treatment ONCE
10/20/25 17:16
Complete Blood Count/With Diff Urgent
Comprehensive Metabolic Panel Urgent
NT-proBNP Urgent
Troponin I Urgent
10/20/25 20:30
Diltiazem HCl [Cardizem] 10 mg IV NOW STA
10/20/25 20:32
CR Chest - 2 Views Urgent
Comment:
Reason For Exam: sob
10/20/25 21:32
EKG [Electrocardiogram (*1)] Urgent
Reason for Study: Other
Other Reason for Exam: rate change post cardizem
EKG- Treatment ONCE
10/20/25 22:18
Admit/Transfer Patient As Directed
Co-Sign Provider:
Level of Care: Inpatient admission
Assign to:: IVU
Physician / Group: Peter
Diagnosis: NSTEMI, chronic heartfailure
Reason for Hospitalization: worsening heartfailure, severe , MICHAEL
Expected length of stay greater than two midnights?: Yes
ELOS- Estimated Length of Stay in days: 2
I certify the patient meets the requirements for IP care: Yes
10/20/25 22:19
PRN Pain Medication Management As Directed
May give lesser potent ordered pain med per pt: Yes
preference::
Protocol:: Medication orders for pain may be administered in a
manner that supports deferring to patient preference
when the pt is:
- Requesting an ordered lesser potent pain medication.
Least to most potent pain medications are defined
as: acetaminophen < NSAID < tramadol < opioids
(morphine, oxycodone, hydromorphone).
- Requesting a lesser dose of the same medication IF
ORDERED.
- Requesting a less intrusive route of administration
if both routes are prescribed by the provider (PO <
IV).
10/20/25 22:22
Code Status As Directed
Resuscitation Status: Full Code
10/20/25 22:33
COVID-19 Antigen Stat
Source: Nasal Swab
Urinalysis Reflex To Culture Stat
Date Specimen was Collected: 10/20/25
Time Specimen was Collected: 22:32
Urine Creatinine Stat
Date Specimen was Collected: 10/20/25
Time Specimen was Collected: 22:32
Urine Microscopic Reflex Cult Stat
Urine Sodium Stat
Date Specimen was Collected: 10/20/25
Time Specimen was Collected: 22:32
Influenza A+B Rapid Molecular Stat
ZACK Source: Nasal Swab
Specimen Description:
Urine Culture Stat
ZACK Source: U
Specimen Description:
Date Specimen was Collected: 10/20/25
Time Specimen was Collected: 22:32
10/21/25 00:18
Acetaminophen [Tylenol] 650 mg PO Q6HPRN PRN
Loperamide [Imodium] 2 mg PO PRN PRN DIARRHEA
Melatonin 10 mg PO HS PRN
10/21/25 00:18
Echo 2D MMode Color/Doppler Routine
Reason for Study: heart failure
CARDIOLOGY CONSULT Routine
Consulting Provider: Jose Manuel Adams
Was physician already notified: No
Reason for consult: CHF exacerbation, severe , volume overload
Consult Notification Routine
Specialty to Notify: Cardiology
Consult Notification Routine
Specialty to Notify: Nephrology
HF DIETARY CONSULT Routine
HF EDUCATOR CONSULT Routine
Comment:
NEPHROLOGY CONSULT Routine
Consulting Provider: Jake Wilkins
Was physician already notified: No
Reason for consult: MICHAEL, suspicious for cardiorenal. Recent cardiac cath.
VTE Contraindication Routine
VTE Mechanical Device Contraindication: Medical Contraindication
Pharmocologic Contraindication: Medical Contraindication
Activity As Directed
Activity Level: With Assistance
Intake/ Output As Directed
Frequency: Per unit guidelines
Patient Education As Directed
Type: CHF folder
Comment: give on admission. Document in Interdisciplinary Education record
Sleep Apnea Assessment by RN As Directed
Comment:
Physician Instructions:
Vital Signs As Directed
Frequency: Other
Additional Instructions:: Q12 or per unit guidelines if more frequent.
Weight As Directed
Frequency: Daily
Type of Scale: Standing Scale
Comment: Daily morning weight. If unable to stand, use balanced bed scale.
Weight As Directed
Frequency: Once
Type of Scale: Standing Scale
Comment: Upon Admission. If unable to stand, use balanced bed scale.
Pulse Ox/cont/shift [RESP] Routine
Quantity: 1
Special Instructions: Daily pulse oximetry at rest. If greater than 92% at rest also obtain pulse oximetry
while ambulating as tolerated.
Renal & Bladder US [US Renal With Bladder] Urgent
Comment:
Reason For Exam: hematuria, MICHAEL
10/21/25 00:24
Troponin I Q6H
Comment: at admission & every 6 hours x 2 (3 total), ECG to be done with each level
10/21/25 06:00
Basic Metabolic Panel IN AM
Complete Blood Count/No Diff IN AM
Magnesium IN AM
10/21/25 06:18
Troponin I Q6H
Comment: at admission & every 6 hours x 2 (3 total), ECG to be done with each level
10/21/25 08:00
Amiodarone [Pacerone] 200 mg PO DAILY
Apixaban [Eliquis] 2.5 mg PO BID
Budesonide [Entocort EC] 3 mg PO DAILY
Clopidogrel Bisulfate [Plavix] 75 mg PO DAILY
Furosemide [Lasix] 60 mg IV BID AT 0800,1600
Hydroxychloroquine [Plaquenil] 200 mg PO DAILY
Metolazone [Zaroxolyn] 2.5 mg PO DAILY
lifitegrast [Xiidra] See Dose Instructions OPHTH BID
10/21/25 12:18
Troponin I Q6H
Comment: at admission & every 6 hours x 2 (3 total), ECG to be done with each level
10/21/25 Dinner
Cholesterol Lowering
At Your Request: Full Participation
Does patient need a safe tray?: No
Cholesterol Lowering: Sodium, 2 Gram
10/21/25 18:00
Atorvastatin [Lipitor] 40 mg PO QPM
10/21/25 22:00
Tamsulosin [Flomax] 0.8 mg PO HS
10/22/25 06:00
Basic Metabolic Panel IN AM
10/23/25 06:00
Basic Metabolic Panel IN AM
Abnormal Lab Results
10/20/25 10/20/25
17:16 22:33
RBC 3.37 L 10^6/uL
(4.70-6.10)
Hgb 9.8 L g/dL
(13.0-18.0)
Hct 31.2 L %
(39.0-52.0)
MCHC 31.4 L g/dL
(33.0-37.0)
RDW 14.7 H %
(11.5-14.5)
Plt Count 121 L 10^3/uL
(130-400)
Absolute Neuts (auto) 7.5 H 10^3/uL
(1.4-6.5)
Absolute Lymphs (auto) 0.7 L 10^3/uL
(1.2-3.4)
Absolute Monos (auto) 1.0 H 10^3/uL
(0.1-0.6)
Neutrophils % 78.0 H %
(42.2-75.2)
Lymphocytes % 7.5 L %
(20.5-51.1)
Monocytes % 10.1 H %
(1.7-9.3)
BUN 69 H mg/dl
(9-20)
Creatinine 1.6 H mg/dL
(0.7-1.3)
Glucose 150 H mg/dl
(70-99)
Troponin I 0.119 H* ng/ml
Ur Occult Blood Reflex 4+ A
(Negative)
Leukocyte Esterase Rfl 1+ A
(Negative)
Urine RBC >100 A /HPF
(0-2)
Urine Bacteria (Reflex) Few A
(Negative)
Urine Sodium 21 L mmol/L
(30-90)
Urine Albumin (Reflex) 3+ A
(Neg - Trace)
10/20/25 17:16
10/20/25 17:16
Vital Signs
Initial and Last Documented VS:
Initial Vital Signs
Temp Pulse Resp BP Pulse Ox
98.3 F 113 20 105/68 98
10/20/25 16:56 10/20/25 16:56 10/20/25 16:56 10/20/25 16:56 10/20/25 16:56
Last Documented Vital Signs
Temp Pulse Resp BP Pulse Ox
97.4 F 105 18 101/72 99
10/21/25 00:33 10/21/25 00:33 10/21/25 00:33 10/21/25 00:33 10/21/25 00:33
MDM/Problems Addressed
MDM/Problems Addressed:
Blood work reviewed, significant for acute renal failure. Despite elevated proBNP, clinically, patient appears to be dehydrated and perhaps over diuresed on Lasix.
During short ambulation in ED, patient noted to become quite tachypneic with moderate respiratory distress, along with significant weakness. Patient will be admitted for further evaluation and treatment.
*Pulse Oximetry
SaO2: 99
Oxygen Mode of Delivery: Room air
Patient hypoxic: no
*Critical Care Note
Total Time (30-74mins, 75-104mins- exclusive of procedures): Not Applicable
ED Attending Note
-
Portions of this chart may have been created with voice recognition software.� Occasional wrong word or��sound alike� substitutions may have occurred due to the inherent limitations of voice recognition software.
Discharge Plan
Departure
Patient Disposition: Admit
Date of Disposition: 10/20/25
Time of Disposition: 20:33
Admit to: Telemetry
Presentation/result/management discussed w/ accepting MD/DO: Hospitalist
Discharge Problem:
Weakness, Aortic stenosis, Dyspnea
Interventions
Interventions:
*Risk Screen - Suicide Last Done: 10/20/25 16:56
*General Assessment Last Done: 10/20/25 16:56
*Neglect/Abuse Screening Last Done: 10/20/25 19:18
*ED- Fall Risk Assessment Last Done: 10/20/25 19:19
*ED COVID-19 Vaccine History Last Done: 10/20/25 16:56
*ED Influenza Vaccine History Last Done: 10/20/25 16:56
*Nursing Disposition Last Done: 10/20/25 23:48
ED- Cardiac Assessment Last Done: 10/20/25 19:14
ED- Neurological Assessment Last Done: 10/20/25 19:17
ED- Pulmonary Assessment Last Done: 10/20/25 19:20
Discharge Date and Time
Discharge Date/Time: 10/20/25 23:56
[2025-10-20] MEDS: CARDIZEM 10 MG IV (21:16)
--- NOTE | 2025-10-20 22:18 | HPS.HSE ---
Family Physician
-
Family Physician: Joseph Osman
Chief Complaint
-
Progressive weakness
History of Present Illness
This is a 89-year-old who has past medical history significant for atrial fibrillation on anticoagulation, CHF, critical aortic stenosis, BPH, RA, NETTIE, CAD recently status post multiple stents presents to the emergency department with progressive
weakness, shortness of breath and dyspnea on exertion.
Patient has a longstanding history of cardiac disease with severe aortic stenosis was found to have a two-vessel CAD cardiac stenting August and at that time it was felt that stenting prior to TAVR will benefit him. He underwent successful PCI to
the LAD on October 09. He had shockwave angioplasty to the left circumflex and 1 drug-eluting stent via the radial artery. Patient reported that since the procedure he has continued to remain symptomatic. He reports orthopnea, severe dyspnea on
exertion, intermittent lightheadedness, weakness, decreased appetite, persistent lower extremity edema with weeping. Right symptoms with 2 prominent today with point family members visited him and they said to bring him to the emergency department.
Patient reports dry cough. He reports dry mouth. He denies chest pain at rest or with exertion.
Patient reported that about a week ago his diuretics were intensified to furosemide 80 mg twice daily plus metolazone. He said he had significant diuresis at that time. His medications have been titrated down to just furosemide 40 twice daily.
Family reports that they were particularly concerned due to the fact that he had decreased urine output over the last 24 to 48 hours. They also noted dark tea colored urine.
Patient is now on triple therapy with Eliquis, aspirin and Plavix. He denies urinary incontinence frequency or urgency. He denies having any fevers or chills. There is no known sick contacts.
On arrival in the emergency department he was afebrile, blood pressure was 110/80 with a pulse of 105, there was satting 96% on room air. Respiratory rate was 19. ECG shows a 4 degree AV block rate of [address] or T wave changes he
has prior left bundle. Chest x-ray shows bilateral pleural effusions are similar to prior. His troponin was elevated at 0.12, BNP was 8770. CBC was similar to prior and unchanged. Electrolytes were normal. BUN and creatinine were notable for a
rising numbers to 69 and 1.6 respectively from a baseline of 50s and 1.2. Glucose was normal.
Medical History
Past Medical History
Past Medical History: Reports Other (hypertension, severe aortic stenosis, obstructive sleep apnea, BPH, rheumatoid arthritis)
Past Surgical History: Reports None
Social History
Tobacco: Non-smoker
Alcohol: Occasional
Drug: None
Family History
Family History: Not pertinent
Allergies / Home Medications
Allergies reflects when Allergies were last updated in [facility].
Home Medications with original date entered in [facility]
Allergy/Medication List:
Allergies
Allergy/AdvReac Type Severity Reaction Status Date / Time
penicillin G Allergy Unknown Verified 08/19/25 17:05
Penicillins Allergy Unknown Verified 08/19/25 17:05
Sulfa (Sulfonamide Allergy Unknown Verified 08/19/25 17:05
Antibiotics)
sulfamethoxazole Allergy Unknown Verified 08/19/25 17:05
trimethoprim Allergy Unknown Verified 08/19/25 17:05
NOT.[id number] - Not Allergy Unknown Uncoded 08/19/25 17:05
Converted 7. See Text.
Home Medications
acetaminophen 650 mg tablet,extended release 1,300 mg PO Q8HPRN PRN mild pain 08/19/25
alendronate 35 mg tablet 35 mg PO SA 08/19/25
budesonide 3 mg capsule,delayed,extended release 3 mg PO DAILY 08/19/25
hydroxychloroquine 200 mg tablet (Plaquenil) 200 mg PO DAILY 08/19/25
loperamide 2 mg capsule 2 mg PO BID 08/19/25
omega 5-sro-vng-fish oil 1,200 mg (144 mg-216 mg) capsule (Fish Oil) 1 cap PO BID 08/19/25
rituximab 10 mg/mL concentrate,intravenous (Rituxan) See Rx Instructions .Route .COMPLEX 08/19/25
tamsulosin 0.4 mg capsule (Flomax) 0.8 mg PO QPM 08/19/25
therapeutic multivitamin 1 tab PO DAILY 08/19/25
triamterene 37.5 mg-hydrochlorothiazide 25 mg capsule 1 cap PO DAILY 08/19/25
Review of Systems
-
History Source: Patient and Family
Constitutional: Reports Fatigue
EENT: Reports Mouth Pain (Dry mucous membrane)
Respiratory: Reports Cough and Trouble Breathing
Cardiac: Reports Other (Orthopnea, dyspnea on exertion, peripheral edema)
Abdomen/GI: Reports Other (Loss of appetite)
: Reports Dark Urine
Musculoskeletal: Reports Edema
Skin: Reports No Symptoms
Neurological: Reports No Symptoms
Endocrine: Reports No Symptoms
Hematologic/Lymphatic: Reports No Symptoms
Psych: Reports No Symptoms
Physical Exam
Vital Signs
Vital Signs
Temp Pulse Resp BP Pulse Ox
98.3 F 105 19 112/83 96
10/20/25 16:56 10/20/25 21:16 10/20/25 21:00 10/20/25 21:16 10/20/25 21:39
Physical Exam
General: No Apparent Distress
HEENT: NormoCephalic, Anicteric, Atraumatic and PERRLA; No Oxygen
Respiratory: Clear and Other (Slightly decreased breath sounds at the bases bilaterally); No Rales
Cardiac: S1/S2, Regular Rhythm and Murmur (Faint systolic murmur 3 out of 6)
Breast: Deferred by me
GI: Soft, Non Tender, Non Distended and Normal Bowel Sounds
Rectal: Deferred by Provider
Genito-urinary: Other (Dark urine with apparent bloody sediment)
Musculoskeletal: No Clubbing, No Cyanosis, Edema, Left Lower Extremity (2+ edema to the thighs) and Edema, Right Lower Extremity (2+ edema to thighs)
Skin: Warm
Neuro: AO x 3 and Nonfocal/grossly intact
Hematologic/Lymphatic: No Lymphadenopathy
Psych: Calm
Laboratory Results
-
10/20/25 17:16
10/20/25 17:16
Laboratory Results
Total Bilirubin 0.7 mg/dl (0.2-1.3) 10/20/25 17:16
AST 53 U/L (17-59) 10/20/25 17:16
ALT 45 U/L (0-50) 10/20/25 17:16
Alkaline Phosphatase 80 U/L (38-126) 10/20/25 17:16
Troponin I 0.119 ng/ml H* 10/20/25 17:16
Data Reviewed
-
Diagnostic Radiology: Image Personally Visualized and interpreted and Report Reviewed by me
Medical Tests (Nuc Med, Echo, EKG etc): Image Personally Visualized and interpreted
Lab Data: Labs Reviewed by me
Impression/Plan
-
IMPRESSION:
89-year-old with a history of severe pending TAVR November 12, CAD recently status post stenting to LAD and left circumflex on Plavix and Eliquis, atrial fibrillation, CHF with preserved EF, rheumatoid arthritis who presents to the emergency
department with weakness, shortness of breath edema orthopnea all consistent with CHF. He also has a nonproductive mild cough. His oxygen saturation is 96 to 98% on room air while sitting upright. ECG is nonischemic. Troponin remains elevated at
0.119, BNP is elevated at 8000. CBC is unremarkable. He has a new MICHAEL. Family brought patient in due to his symptoms and also due to the fact that he has a new dark urine output with decreased urine output.
PLAN:
Heart failure -patient with severe pending TAVR, presenting with chronic heart failure. Complicated by MICHAEL. He had a recent adjustment of his diuresis about a week ago with brisk output but now has limited output despite continuing to take
Lasix 40 mg twice daily. He has peripheral edema pleural effusions bilaterally elevated JVD and got edema. At this point it is unclear whether he has been overdiuresed or whether he has resistance to oral Lasix due to intestinal edema and that he
is suffering from a cardiorenal syndrome.
� Admit to IVU
� Will rule out COVID and flu
� Check orthostatic vital signs
� Urine studies below
� If COVID and flu were negative and patient is HD stable, will place on IV Lasix with metolazone of for continued diuresis giving total body volume overload
� Daily weights, ins and outs
� Cardiology consult
Elevated troponin -patient is recently status post stent and has chronic AAS and MICHAEL suspect troponin is a residual elevation. He has no chest pain and ECG is nonischemic
� Trend troponins for now
� Continue Eliquis and Plavix
� Continue statin
� Will attempt to decongest the heart as above
� Cardiology consult
MICHAEL�cardiorenal versus prerenal versus ATN in the setting of recent contrast exposure
� Obtain urine sodium, urine creatinine, if FENa is low despite diuretics then the patient does not have ATN
- In that case, we cannot distinguish prerenal versus cardiorenal
Patient's total body volume overloaded and will need to be diuresed.
- We will initiate diuresis with metolazone and IV Lasix
-Obtain renal bladder ultrasound
� Nephrology consulted
� Avoid nephrotoxins
Atrial fibrillation
- Rate controlled
� Continue Eliquis
Rheumatoid arthritis
- Continue budesonide, Plaquenil
Dark Urine -hematuria versus prerenal azotemia, patient on Plavix and Eliquis. No evidence of obstruction
� Checking UA
-Renal bladder ultrasound as abov e
- continuous cardiac anticoagulation and Plavix
DVT prophylaxis�on Eliquis
CODE STATUS�full code for now, patient does understand the ramifications but is awaiting TAVR
[2025-10-20 22:44] LABS: Urine Character Slightly Cloudy (Clear)
[2025-10-20 22:56] LABS: Urine Red Blood Cell >100 /HPF (0-2); Urine Squamous Cell 0-2 /LPF (Few)
[2025-10-20 23:01] LABS: COVID-19 Antigen Negative (Negative)
[2025-10-21] VITALS: BP 116/72
[2025-10-21 00:32] VITALS: BMI 22.9
[2025-10-21 00:33] VITALS: BP 101/72
[2025-10-21 01:17] LABS: Troponin I 0.123 ng/ml
[2025-10-21 01:19] VITALS: BMI 22.9
[2025-10-21] MEDS: MELATONIN 10 MG PO ×2 (01:30→22:28)
[2025-10-21 06:00] VITALS: BMI 23.0
--- NOTE | 2025-10-21 06:48 | PTCARENOTE ---
Received pt from ED @ 0015. AAOx3, VSS-- NSR w/ BBB and PVCs flipping with occasional AFib. Denies any CP. Trending trops. Dressings on bilateral legs changed, sacrum foam placed. Discussed plan of care. Pt verbalizes understanding. Plan of care
ongoing. Call kurtz within reach.
[2025-10-21 07:11] LABS: Hematocrit 31.2 % (39.0-52.0); Hemoglobin 9.9 g/dL (13.0-18.0); Mean Corp Hgb Conc. 31.7 g/dL (33.0-37.0); Mean Corpuscular Volume 92.6 fL (80.0-94.0); Platelet Count 123 10^3/uL (130-400); Red Cell Dist. Width 14.6 % (11.5-14.5)
[2025-10-21 07:12] LABS: Troponin I 0.116 ng/ml
[2025-10-21 07:22] LABS: Blood Urea Nitrogen 65 mg/dl (9-20); Calcium 9.0 mg/dl (8.4-10.2); Carbon Dioxide 26 mmol/L (22-30); Chloride 103 mmol/L (98-107); Estimated Creatinine Clearance 35 ml/min; Glucose 120 mg/dl (70-99); Magnesium 2.3 mg/dl (1.6-2.3); Potassium 4.1 mmol/L (3.5-5.1); Sodium 136 mmol/L (135-145); eGFR 48.04
--- NOTE | 2025-10-21 08:05 | W.PN.HOSP.TC ---
Addendum entered and electronically signed by Jose Miguel Pierce MD 10/21/25 11:13:
correction: Acute on chronic HFrEF
Original Note:
Today's Communication/Plan
-
see plan
Assessment / Plan
Assessment / Plan
Admission summary: 89 M h/o severe pending TAVR 11/12/25, CAD s/p recent stenting to LAD and L circumflex on Plavix and Eliquis, atrial fibrillation, HFpEF, and RA p/w acute on chronic HFpEF. He also has a nonproductive mild cough. His oxygen
saturation is 96 to 98% on room air while sitting upright. ECG is nonischemic. Troponin remains elevated at 0.119, BNP is elevated at 8000. CBC is unremarkable. He has a new MICHAEL. Family brought patient in due to his symptoms and also due to the
fact that he has a new dark urine output with decreased urine output.
Gen: NAD, AAOx3, cachectic, appears chronically ill
Eyes: EOMI, PERRLA, no scleral icterus.
Neck: supple, +JVD
CV: Tachycardic, regular rhythm, +S1/S2, 2/6 ROSA
Resp: CTAB, no rales, wheezes, or rhonchi.
Abd: +BS, soft, NT, ND
Skin: gauze dressings on both legs, trace B/L LE edema
Neuro: CN 2-12 intact, non-focal.
Psych: Normal mood and affect.
CXR: Mild interstitial pulmonary edema with small to moderate bilateral pleural effusions.
Acute on chronic HFpEF:
-underlying severe
-with MICHAEL due to CRS, improving
-ECG non-ischemic
-proBNP 8770
-trops 0.119, 0.123, 0.116 (nonischemic myocardial injury)
-cont IV lasix
-daily wts, I/Os
-cont Zaroxolyn
-c/s renal/cards
Other problems:
Cachexia/underweight
CAD: cont statin/Plavix
PAF: cont Eliquis
RA: cont budesonide/Plaquenil
FULL/Eliquis
Total time spent on today's encounter was 50 minutes which included time spent in counseling the patient/family regarding diagnosis and treatment plan as listed above, goals of care, and symptom management. Case was discussed with nursing staff,
specialists, and care coordinators/case management. All labs and imaging personally reviewed by me. Remainder the time spent in detailed review of previous records, lab data, imaging, and other medical provider documentation.
Anticipated Discharge: > 48 hours
Subjective/Interval History
-
Date of Service: October 21, 2025
SOB improving
Objective Data
-
Labs:
Laboratory Results
10/21/25
06:19
WBC 8.7
Hgb 9.9 L
Hct 31.2 L
Plt Count 123 L
Sodium 136
Potassium 4.1
Chloride 103
Carbon Dioxide 26
BUN 65 H
Creatinine 1.4 H
Glucose 120 H
Calcium 9.0
Vital Signs:
Vital Signs
Temp Pulse Resp BP Pulse Ox
97.8 F 105 18 101/72 98
10/21/25 07:01 10/21/25 00:33 10/21/25 07:01 10/21/25 00:33 10/21/25 07:01
I&O
10/20/25 10/21/25 10/22/25
06:59 06:59 06:59
Intake Total 240 / 240
Output Total 350 / 350
Balance -110 / -110
[2025-10-21] MEDS: PLAQUENIL 200 MG PO (08:38)
[2025-10-21] MEDS: PACERONE 200 MG PO ×2 (08:38→20:43)
[2025-10-21] MEDS: ZAROXOLYN 2.5 MG PO (08:38)
[2025-10-21] MEDS: PLAVIX 75 MG PO (08:38)
[2025-10-21] MEDS: ELIQUIS 2.5 MG PO ×2 (08:38→20:43)
[2025-10-21] MEDS: LASIX 60 MG IV ×2 (08:38→15:36)
[2025-10-21] MEDS: ENTOCORT EC 3 MG PO (08:39)
--- NOTE | 2025-10-21 08:56 | CON.CAR ---
Addendum entered and electronically signed by Jean Marie Woodson DO 10/21/25 11:36:
I saw and examined the patient.
The Can Pusher's note was reviewed and I agree with the note.
Comment:
Plan:
He recently underwent TAVR workup including cath resulting in LAD and circumflex PCI, scheduled for TAVR 11/12/2025, presented to with acute heart failure
- proBNP 8770. Chest x-ray with evidence of small to moderate bilateral pleural effusions
Cont IV diuresis with 60 mg BID and Metolazone 2.5 mg daily.
Cont to monitor and replete electrolytes as needed, cr improved from 1.6 to 1.4 on 10/21.
Echo pending, last EF Jul 2025 20-25%.
Ongoing discussions with TAVR team about potentially moving up his scheduled outpt TAVR
Remains in aflutter with suboptimal HR control.
Increase amiodarone dosing to 200mg BID. QTc 479ms.
uptitration of BB limited by hypotension
Cont Eliquis for PAFlutter and Plavix for recent PCI Hb stable at 9.9
Cont medical therapy of nonMI trop 0.1 from CHF, no cp.
TAVR presently scheduled for 11/12
Discussed with daughter at bedside and nursing.
Original Note:
Consultation
Consultation Request
Date/Time Consultation Performed: 10/21/25
Requesting Provider: Dr. Green
Performing Provider: Estefany Winters PA-C for Dr. Woodson
Reason for Consultation: CHF,
Medical History
-
Chief Complaint: SOB
History of Present Illness:
Patient with known severe , scheduled for TAVR 11/12/2025, presents to ER due to worsening shortness of breath and lower extremity edema. He was diagnosed with new A-fib 07/2025 and was found to have new cardiomyopathy with EF 20 to 25%. He was
initiated on amiodarone and Eliquis. He then underwent cardiac catheterization as part of TAVR eval 10/09/2025 resulting in LAD and circumflex stents and was discharged the following day. He then called the office on 10/14 to report weight gain
and lower extremity edema. His diuretics were increased to p.o. Lasix 80 mg twice daily with metolazone 2.5 mg daily for 3 days and had good response with this. He states since decreasing his dosing back to 40 mg p.o. twice daily, he has had
decreased urine output, shortness of breath, and has been generally feeling poorly. ProBNP 8770 and CXR with evidence of B/L pleural effusions.
PMH:
Elective cardiac catheterization for PCI LAD and circumflex 10/09/[address] Gutierrez, radial approach
Successful stenting of the mid LAD with a 3.0 x 34 mm Ady stent that was postdilated to high-pressure's with a 3.5 mm noncompliant balloon. Successful stenting of the circumflex extending into a terminal obtuse marginal branch. SHOCKWAVE
lithotripsy was performed with a 3.0 x 12 mm balloon and was followed by placement of a 3.0 x 15 mm Ady stent that was implanted at nominal pressures and postdilated with a 3.25 mm noncompliant balloon Low flow-Severe with mean gradient 35 mmHg
by echo 06/26/2025, undergoing TAVR
Biventricular cardiomyopathy with reduced ejection fraction, valvular and ischemic.
EF 20-25% with dilated RV and reduced RV systolic function 07/2025
Recent heart failure admission July 2025
Atrial fibrillation, new diagnosis 08/19/2025
Eliquis anticoagulation
New left bundle branch block
PAD suspected
Venous stasis dermatitis/ venous stasis
Hyperlipidemia
Rheumatoid arthritis, on Rituxan and hydroxychloroquine
Chronic anemia
Gait dysfunction
Past Medical History
Past Medical History: Other (in HPI)
Past Surgical History: Orthopedic (right KISHAN) and Tonsilectomy
Social History
Tobacco: Former Smoker
Alcohol: Occasional
Drug: None
Personal: (his just )
Living: Alone (but his son and daughter stop by to check on him daily)
Family History
Family History: CAD and Other (RA)
Allergies / Home Medications
Allergy/AdvReac Type Severity Reaction Status Date / Time
penicillin G Allergy CHILDHOOD Verified 10/09/25 11:07
Penicillins Allergy CHILDHOOD Verified 10/09/25 11:07
Sulfa (Sulfonamide Allergy Anaphylaxis Verified 10/09/25 11:07
Antibiotics)
sulfamethoxazole Allergy Anaphylaxis Verified 10/09/25 11:07
trimethoprim Allergy Anaphylaxis Verified 10/09/25 11:07
�Medication �Instructions �Recorded �Confirmed �Type
acetaminophen 650 mg 1,300 mg PO Q8HPRN PRN mild pain 08/19/25 10/20/25 History
tablet,extended release
alendronate 35 mg tablet 35 mg PO SA osteoporosis 08/19/25 10/20/25 History
budesonide 3 mg 3 mg PO DAILY Anti-Inflammatory 08/19/25 10/20/25 History
capsule,delayed,extended release
hydroxychloroquine 200 mg tablet 200 mg PO DAILY rheumatoid 08/19/25 10/20/25 History
(Plaquenil) arthritis
loperamide 2 mg capsule 2 mg PO PRN PRN DIARRHEA 08/19/25 10/20/25 History
omega 7-kmi-ulw-fish oil 1,200 mg 1 cap PO BID Supplement 08/19/25 10/20/25 History
(144 mg-216 mg) capsule (Fish Oil)
rituximab 10 mg/mL See Rx Instructions .Route 08/19/25 10/20/25 History
concentrate,intravenous (Rituxan) .COMPLEX RA
therapeutic multivitamin 1 tab PO DAILY Supplement 08/19/25 10/20/25 History
apixaban 2.5 mg tablet (Eliquis) 2.5 mg PO BID #60 tabs 08/21/25 10/20/25 Rx
cholecalciferol (vitamin D3) 25 25 mcg PO DAILY 09/01/25 10/20/25 History
mcg (1,000 unit) tablet (Vitamin
D3)
lifitegrast 5 % eye drops in a 1 drp ophthalmic (eye) BID 09/01/25 10/20/25 History
dropperette (Xiidra)
amiodarone 200 mg tablet 200 mg PO DAILY 10/02/25 10/20/25 History
furosemide 20 mg tablet (Lasix) 40 mg PO BID 10/02/25 10/20/25 History
metolazone 2.5 mg PO DAILY PRN weight gain 10/06/25 10/20/25 History
aspirin 81 mg chewable tablet 81 mg PO DAILY #1 tab 10/09/25 10/20/25 Rx
atorvastatin 40 mg tablet 40 mg PO QPM #30 tabs 10/09/25 10/20/25 Rx
clopidogrel 75 mg tablet 75 mg PO DAILY #90 tabs 10/09/25 10/20/25 Rx
tamsulosin 0.4 mg capsule 0.8 mg PO HS 10/09/25 10/20/25 History
potassium 99 mg tablet 99 mg PO DAILY 10/20/25 10/20/25 History
Review of Systems
-
History Source: Patient
All other systems: Negative unless noted
Physical Exam
Vital Signs
Temp Pulse Resp BP Pulse Ox
97.9 F 112 18 102/70 98
10/21/25 07:35 10/21/25 08:38 10/21/25 07:01 10/21/25 08:38 10/21/25 07:01
Lab Results
10/21/25 06:19
10/21/25 06:19
Troponin I 0.116 ng/ml H* 10/21/25 06:19
Mey-H-Pggbteebnvz Pept 8770 pg/ml 10/20/25 17:16
Physical Exam
General: No Apparent Distress, Comfortable and Other (sitting in chair)
HEENT: Normocephalic, Anicteric and Moist Mucous Membranes
Respiratory: Crackles and Non Labored Respirations
Cardiac: S1/S2, Irregular Rhythm and Murmur
GI: Soft, Non Tender, Non Distended and Normal Bowel Sounds
Musculoskeletal: No Clubbing, No Cyanosis and Edema (2+ of B/L LE)
Skin: Warm, Dry and Other (dressings to B/L LE. ecchymoses in various stages of healing of B/L UE)
Neuro: AO x 3
Impression / Plan
-
PCP: Dr. Osman
Cardiology: Dr. Huntley
Impression:
Presentation with SOB
Acute on chronic HFrEF
Elevated troponin, suspected nonischemic myocardial injury
Elective cardiac catheterization for PCI LAD and circumflex 10/09/[address] Gutierrez, radial approach
Successful stenting of the mid LAD with a 3.0 x 34 mm Ady stent that was postdilated to high-pressure's with a 3.5 mm noncompliant balloon. Successful stenting of the circumflex extending into a terminal obtuse marginal branch. SHOCKWAVE
lithotripsy was performed with a 3.0 x 12 mm balloon and was followed by placement of a 3.0 x 15 mm [place] stent that was implanted at nominal pressures and postdilated with a 3.25 mm noncompliant balloon Low flow-Severe with mean gradient 35 mmHg
by echo 06/26/2025, undergoing TAVR
Biventricular cardiomyopathy with reduced ejection fraction, valvular and ischemic.
EF 20-25% with dilated RV and reduced RV systolic function 07/2025
Recent heart failure admission July 2025
Atrial fibrillation, new diagnosis 08/19/2025
Eliquis anticoagulation
New left bundle branch block
PAD suspected
Venous stasis dermatitis/ venous stasis
Hyperlipidemia
Rheumatoid arthritis, on Rituxan and hydroxychloroquine
Chronic anemia
Gait dysfunction
Echo 06/26/2025: EF 50%, severe with peak/mean 64/35 mmHg, mild to moderate MR, mild to moderate TR with PAP 54 mmHg
Echo 08/20/2025: EF 20 to 25% with global hypokinesis. Dilated right ventricle with mildly reduced RV systolic function. By atrial dilation. Heavily calcified aortic valve with reduced leaflet excursion.
Plan:
- Patient who recently underwent TAVR workup including cath resulting in LAD and circumflex PCI, scheduled for TAVR 11/12/2025, presents to [facility] due to acute heart failure
- proBNP 07/02/1969. Chest x-ray with evidence of small to moderate bilateral pleural effusions
- Agree with diuresis with IV Lasix 60 mg twice daily with metolazone 2.5 mg daily. Follow electrolytes. creatinine 1.4 on 10/21.
- repeat limited echo to reeval EF, last from 08/20/25 with EF 20-25%. ordered by me
- remains in aflutter with suboptimal HR control. will increase amiodarone dosing to 200mg BID. QTc 479ms. uptitration of BB limited by hypotension
- continue eliquis/plavix. hgb 9.9
- trops mildly elevated in 0.1 range. suspect nonischemic myocardial injury due to acute CHF. no CP.
- unclear if availability to move up TAVR presently scheduled for 11/12
- d/w CT SPINNING MACHINE TENDER and TAVR coordinator. d/w nursing
Data Reviewed
-
EKG: Tracing Personally Visualized and interpreted
Radiology: Report Reviewed by me
Medical Tests (Nuc Med, Echo etc): Report Reviewed by me
Labs: Labs Reviewed by me
Old Records: Reviewed
--- NOTE | 2025-10-21 11:00 | PN.CDI ---
CDI
- -
CDI:
Physician Documentation Request
Admit Date: 10/20/25 22:51
Dear Doctor Kari,
Please review the following and provide your response in the progress notes.
The purpose of this query is to ensure the accuracy of the conditions reported for your patient.
Clinical indicators:
PN, 10/21
#Acute on chronic HFpEF:
#...-underlying severe
Cardiology, consult, 10/21
#Acute on chronic HFrEF
#...Biventricular cardiomyopathy with reduced ejection fraction, valvular and ischemic.
EF 20-25% with dilated RV and reduced RV systolic function 07/2025
Recent heart failure admission July 2025
Please clarify the TYPE of CHF:
Acute on chronic HFrEF
Acute on chronic HFpEF
Other (please specify)
Use of terms such as suspected, likely, concern for, or probable (associated with a specific diagnosis that is being evaluated, monitored, or treated as if it exists) are acceptable and can be coded in the inpatient setting, when documented at the
time of discharge.
Thank you,
Susy Barber RN BSN CCDS
CDI Specialist
Please contact via tiger text
Please use your independent medical judgment in providing your response.
[2025-10-21 11:30] VITALS: BP 111/62
--- NOTE | 2025-10-21 12:27 | W.CON.NEPH ---
Consultation
-
Date/Time Consultation Requested: October 21, 2025 8 AM
Date/Time Consultation Performed: October 21, 2025 12:30 PM
Requesting Provider: Jose Miguel Pierce
Performing Provider: Dr. Lopez
Reason for Consultation: Acute on chronic kidney disease
Medical History
-
Chief Complaint: Acute on chronic kidney disease
History of Present Illness:
89-year-old who has past medical history significant for atrial fibrillation on anticoagulation, CHF, critical aortic stenosis, BPH, RA, NETTIE, CAD recently status post multiple stents presents to the emergency department with progressive weakness,
shortness of breath and dyspnea on exertion.
Brief medical history longstanding history of cardiac disease with severe aortic stenosis was found to have a two-vessel CAD cardiac stenting August and at that time it was felt that stenting prior to TAVR will benefit him. He underwent successful
PCI to the LAD on October 09. He had shockwave angioplasty to the left circumflex and 1 drug-eluting stent via the radial artery.
Recently diuretics were intensified to furosemide 80 mg twice daily plus metolazone. Then titrated to furosemide 40 twice daily. Urine output has decreased few days prior to admission with dark urine
Family was at the bedside help provide history
Renal consultation for acute kidney injury creatinine 1.6 from a relatively normal baseline for age of [age] years old
Past Medical History
medical history significant for atrial fibrillation on anticoagulation, CHF, critical aortic stenosis, BPH, RA, NETTIE, CAD r
Social History
Tobacco: Non-Smoker
Alcohol: None
Family History
Family History: Not Pertinent
Allergies / Home Medications
Allergy/AdvReac Type Severity Reaction Status Date / Time
penicillin G Allergy CHILDHOOD Verified 10/09/25 11:07
Penicillins Allergy CHILDHOOD Verified 10/09/25 11:07
Sulfa (Sulfonamide Allergy Anaphylaxis Verified 10/09/25 11:07
Antibiotics)
sulfamethoxazole Allergy Anaphylaxis Verified 10/09/25 11:07
trimethoprim Allergy Anaphylaxis Verified 10/09/25 11:07
�Medication �Instructions �Recorded �Confirmed �Type
acetaminophen 650 mg 1,300 mg PO Q8HPRN PRN mild pain 08/19/25 10/20/25 History
tablet,extended release
alendronate 35 mg tablet 35 mg PO SA osteoporosis 08/19/25 10/20/25 History
budesonide 3 mg 3 mg PO DAILY Anti-Inflammatory 08/19/25 10/20/25 History
capsule,delayed,extended release
hydroxychloroquine 200 mg tablet 200 mg PO DAILY rheumatoid 08/19/25 10/20/25 History
(Plaquenil) arthritis
loperamide 2 mg capsule 2 mg PO PRN PRN DIARRHEA 08/19/25 10/20/25 History
omega 9-gbr-qco-fish oil 1,200 mg 1 cap PO BID Supplement 08/19/25 10/20/25 History
(144 mg-216 mg) capsule (Fish Oil)
rituximab 10 mg/mL See Rx Instructions .Route 08/19/25 10/20/25 History
concentrate,intravenous (Rituxan) .COMPLEX RA
therapeutic multivitamin 1 tab PO DAILY Supplement 08/19/25 10/20/25 History
apixaban 2.5 mg tablet (Eliquis) 2.5 mg PO BID #60 tabs 08/21/25 10/20/25 Rx
cholecalciferol (vitamin D3) 25 25 mcg PO DAILY 09/01/25 10/20/25 History
mcg (1,000 unit) tablet (Vitamin
D3)
lifitegrast 5 % eye drops in a 1 drp ophthalmic (eye) BID 09/01/25 10/20/25 History
dropperette (Xiidra)
amiodarone 200 mg tablet 200 mg PO DAILY 10/02/25 10/20/25 History
furosemide 20 mg tablet (Lasix) 40 mg PO BID 10/02/25 10/20/25 History
metolazone 2.5 mg PO DAILY PRN weight gain 10/06/25 10/20/25 History
aspirin 81 mg chewable tablet 81 mg PO DAILY #1 tab 10/09/25 10/20/25 Rx
atorvastatin 40 mg tablet 40 mg PO QPM #30 tabs 10/09/25 10/20/25 Rx
clopidogrel 75 mg tablet 75 mg PO DAILY #90 tabs 10/09/25 10/20/25 Rx
tamsulosin 0.4 mg capsule 0.8 mg PO HS 10/09/25 10/20/25 History
potassium 99 mg tablet 99 mg PO DAILY 10/20/25 10/20/25 History
Review of Systems
-
Shortness of breath improving urine output increased, lower extremity edema
All other systems: Negative unless noted
Physical Exam
Vital Signs
Vital Signs
Temp Pulse Resp BP Pulse Ox
98.3 F 112 18 102/70 98
10/21/25 12:20 10/21/25 08:38 10/21/25 07:01 10/21/25 08:38 10/21/25 07:01
Lab Results
WBC 8.7 10^3/uL (4.8-10.8) 10/21/25 06:19
RBC 3.37 10^6/uL (4.70-6.10) L 10/21/25 06:19
Hgb 9.9 g/dL (13.0-18.0) L 10/21/25 06:19
Hct 31.2 % (39.0-52.0) L 10/21/25 06:19
Plt Count 123 10^3/uL (130-400) L 10/21/25 06:19
Sodium 136 mmol/L (135-145) 10/21/25 06:19
Potassium 4.1 mmol/L (3.5-5.1) 10/21/25 06:19
Chloride 103 mmol/L (98-107) 10/21/25 06:19
Carbon Dioxide 26 mmol/L (22-30) 10/21/25 06:19
BUN 65 mg/dl (9-20) H 10/21/25 06:19
Creatinine 1.4 mg/dL (0.7-1.3) H 10/21/25 06:19
eGFR 48.04 10/21/25 06:19
Glucose 120 mg/dl (70-99) H 10/21/25 06:19
Calcium 9.0 mg/dl (8.4-10.2) 10/21/25 06:19
Zvo-F-Gaeidwpwnah Pept 8770 pg/ml 10/20/25 17:16
Albumin 3.7 g/dl (3.5-5.0) 10/20/25 17:16
Physical Exam
General no acute distress
HEENT no cephalic atraumatic extraocular muscle intact no scleral icterus no JVD neck supple
lungs mild wheezes and crackles
heart regular S1-S2 positive, brisk ROSA
abdomen soft nontender positive bowel sounds
extremities +3 edema, pulses present bilateral
Neurologically nonfocal alert and oriented x 3
Skin no lesions no abrasions no petechiae
Psych normal affect no bizarre behavior
Data Reviewed
-
Radiology: Image Personally Visualized and interpreted
Labs: Labs Reviewed by me, Discussed with Patient and Discussed with Family
Assessment/Plan
-
89-year-old who has past medical history significant for atrial fibrillation on anticoagulation, CHF, critical aortic stenosis, BPH, RA, NETTIE, CAD recently status post multiple stents presents to the emergency department with progressive weakness,
shortness of breath and dyspnea on exertion.
Brief medical history longstanding history of cardiac disease with severe aortic stenosis was found to have a two-vessel CAD cardiac stenting August and at that time it was felt that stenting prior to TAVR will benefit him. He underwent successful
PCI to the LAD on October 09. He had shockwave angioplasty to the left circumflex and 1 drug-eluting stent via the radial artery.
Recently diuretics were intensified to furosemide 80 mg twice daily plus metolazone. Then titrated to furosemide 40 twice daily. Urine output has decreased few days prior to admission with dark urine
Family was at the bedside help provide history
Renal consultation for acute kidney injury creatinine 1.6 from a relatively normal baseline for age of [age] years old
Impression
Acute on chronic kidney disease baseline creatinine 1.2/cardiorenal improving with diuretics plus or minus recent IV contrast
Critical planned TAVR November 12.
Acute on chronic CHF ejection fraction 20 to 25% as of 08/20/2025
BPH stable
Anemia of chronic disease�stable
Plan.
Agree with IV diuretics with thiazide
Sodium restriction
Monitor urine output
Daily weights
Consider TAVR inpatient
Discussed with family risks and benefits especially with IV contrast if renal function remains elevated
Quality life considerations as patient continues to be symptomatic despite measures of fluid management
Current creatinine improved since admission 1.4
--- NOTE | 2025-10-21 14:55 | CM ---
spoke to pt and daughter in room, he is prev indep, lives alone in a 2 story home with a first floor set up and 2 step to marco. his daughter is closeby and supportive. she is possibly staying this admission for TAVR, w/u in progress. he was
current with [facility] for LE wound care 3 x wk and referral faxed to resume care. cm following for any needs that may arise.
--- NOTE | 2025-10-21 15:00 | PTCARENOTE ---
Assumed care of pt from night RN. [employer] [place]. NSR/ST on tele, HR 90s-110s. SpO2 95% on room air. VSS. B/L LE DP present with doppler. RLE cool and toes purple/cyanotic. Pt has PAD. Cardiology PROPOSAL DEVELOPMENT MANAGER aware. Continuing diuresis with IV Lasix 60mg BID.
Plan for TAVR next week. Assessment documented. Pt OOB to chair, call kurtz in reach.
--- NOTE | 2025-10-21 15:02 | WOUNDNOTE ---
[facility] RN note: Patient admitted with weakness
See H&P for complete history.
PMH: atrial fibrillation on anticoagulation, CHF, critical aortic stenosis, BPH, RA, NETTIE, CAD
Wound Location and type/assessment: Patient admitted with venous stasis changes to bilateral LE. No open wounds noted. +2 LE edema noted. Right toes with bruise (patient reports hitting toes about a month ago). Pulses audible with doppler. Patient
reports VN has been applying dry dressings to help manage drainage. Patient says he lives alone and cannot manage applying compression daily. Heels intact. Stage 1 to sacrum. Heels intact. Patient reports poor mobility when at home.
Appetite: Patient reports poor appetite and home but improved appetite in the hospital.
Pressure redistribution devices in place: Static air overlay applied to bed, air cushion added to chair.
Plan: Will recommend Aquaphor and Javier wrap to LE. Sacral foam to sacrum. Suggested that patient sit with legs elevated throughout the day, as he reports poor mobility and sitting much of the day. Patient says he can elevate legs in recliner and on
pillows when in bed. Orders confirmed with Dr. Pierce. Updated care plan and will follow as needed.
Note to case management of equipment requested for discharge:
Recommend follow up at wound care center upon discharge.
--- NOTE | 2025-10-21 15:07 | W.PN.UPDATE ---
Update Note
Progress Note Update
Patient noted by nursing to have discoloration of toes on right foot, noted to be purple and cool. Was able to get pulse with Doppler. Has history of peripheral vascular disease. Family relays that this does happen at home as well. Legs elevated.
Would consider for RUPERTO as outpatient.
[2025-10-21] MEDS: HYDROPHOR 1 APPLIC TOPICAL (15:35)
[2025-10-21 15:40] VITALS: BP 95/69
--- NOTE | 2025-10-21 15:58 | WOUNDNOTE ---
RIGHT TOE BRUISES
[2025-10-21] MEDS: LIPITOR 40 MG PO (17:08)
[2025-10-21 22:08] VITALS: BP 105/59
[2025-10-21] MEDS: FLOMAX 0.8 MG PO (22:29)
--- NOTE | 2025-10-22 01:47 | PTCARENOTE ---
Received pt at change of shift resting in bed. SR-ST on tele, HR 90's-100's. pt denies any CP or SOB at this time. PRN Melatonin administered per pt request--see JAN. High fall risk precautions maintained, pt encouraged to call RN for assistance
ambulating. pt calls appropriately, call kurtz within reach.
[2025-10-22 03:34] VITALS: BP 107/67
[2025-10-22 05:29] LABS: Blood Urea Nitrogen 56 mg/dl (9-20); Calcium 9.0 mg/dl (8.4-10.2); Carbon Dioxide 31 mmol/L (22-30); Chloride 99 mmol/L (98-107); Estimated Creatinine Clearance 35 ml/min; Glucose 117 mg/dl (70-99); Potassium 2.9 mmol/L (3.5-5.1); Sodium 134 mmol/L (135-145); eGFR 48.04
[2025-10-22 06:00] VITALS: BMI 22.4
[2025-10-22] MEDS: KCL 20 MEQ PO ×2 (06:22→08:33)
[2025-10-22] MEDS: KCL 270 MEQ IV (06:24)
--- NOTE | 2025-10-22 08:00 | W.PN.NEPH.PH ---
Today's Communication / Plan
-
K
Assessment/Plan
-
89-year-old who has past medical history significant for atrial fibrillation on anticoagulation, CHF, critical aortic stenosis, BPH, RA, NETTIE, CAD recently status post multiple stents presents to the emergency department with progressive weakness,
shortness of breath and dyspnea on exertion.
Brief medical history longstanding history of cardiac disease with severe aortic stenosis was found to have a two-vessel CAD cardiac stenting August and at that time it was felt that stenting prior to TAVR will benefit him. He underwent successful
PCI to the LAD on October 09. He had shockwave angioplasty to the left circumflex and 1 drug-eluting stent via the radial artery.
Recently diuretics were intensified to furosemide 80 mg twice daily plus metolazone. Then titrated to furosemide 40 twice daily. Urine output has decreased few days prior to admission with dark urine
Family was at the bedside help provide history
Renal consultation for acute kidney injury creatinine 1.6 from a relatively normal baseline for age of [age] years old
Impression
Acute on chronic kidney disease baseline creatinine 1.2/cardiorenal improving with diuretics plus or minus recent IV contrast
Critical planned TAVR November 12.
Acute on chronic CHF ejection fraction 20 to 25% as of 08/20/2025
BPH stable
Anemia of chronic disease�stable
Plan.
hold IV lasix
po regimen per cardiology
follow BMP
replete K at least 80meq today
-
-
Date of Service: October 22, 2025
CC / HPI / ROS
-
Chief Complaint:
MICHAEL
History of Present Illness:
MICHAEL/Cr stable 1.4
K low 2.8
Na low 134
diuresing well for decompensated HF
Review of Systems:
no CP/SOB
Labs
-
Labs:
WBC 8.7 10^3/uL (4.8-10.8) 10/21/25 06:19
RBC 3.37 10^6/uL (4.70-6.10) L 10/21/25 06:19
Hgb 9.9 g/dL (13.0-18.0) L 10/21/25 06:19
Hct 31.2 % (39.0-52.0) L 10/21/25 06:19
Plt Count 123 10^3/uL (130-400) L 10/21/25 06:19
eGFR 48.04 10/22/25 03:40
Ucf-T-Zhsxpivzhvv Pept 8770 pg/ml 10/20/25 17:16
Albumin 3.7 g/dl (3.5-5.0) 10/20/25 17:16
Physical Exam
-
Vital Signs:
Vital Signs
Temp Pulse Resp BP Pulse Ox
97.4 F 78 18 107/67 91
10/22/25 03:34 10/22/25 05:00 10/22/25 03:34 10/22/25 03:34 10/22/25 03:34
Cardiovascular:: Regular rate and rhythm
Respiratory:: Bilateral: Coarse
Lung Excursion:: Normal
Abdomen:: Nontender and Soft
Bowel Sounds:: Normal
Extremity Edema:: None: Bilateral:
[2025-10-22] MEDS: PLAVIX 75 MG PO (08:03)
[2025-10-22] MEDS: PLAQUENIL 200 MG PO (08:03)
[2025-10-22] MEDS: ELIQUIS 2.5 MG PO ×2 (08:03→19:21)
[2025-10-22] MEDS: PACERONE 200 MG PO ×2 (08:03→19:21)
--- NOTE | 2025-10-22 08:03 | W.PN.CARDCBS ---
Today's Communication / Plan
-
He is over 2L negative Is and Os and wt is coming down.
Reduce lasix to 40 mg IV daily after discussion with nephrology
Cont to monitor and replete electrolytes as needed, cr improved from 1.6 to 1.4 on 10/21 and remains 1.4 on 10/22
Potassium being repleted.
Echo Oct 21 2025: Severely reduced left ventricular systolic function with estimated LVEF of 23% by Almeida's method. Dilated right ventricle with mildly reduced RV function. Severely dilated left atrium. Moderately dilated right atrium. Severe
aortic valve leaflet thickening with severe low-flow low gradient aortic stenosis in the setting of a severely reduced ejection fraction. Estimated peak and mean trans aortic gradients of 35 and 22 mmHg, respectively. Trace aortic regurgitation..
Moderate mitral valve regurgitation. Moderate to severe tricuspid regurgitation with severe pulmonary hypertension. Estimated pulmonary artery systolic pressure of 68 mmHg, assuming a right atrial pressure of 15 mmHg. Small pericardial effusion is
present. Moderate size pleural effusion is present., last EF Jul 2025 20-25%.
After discussions with TAVR team, scheduled outpt TAVR moved up to Oct 29 from Nov 12.
Remains in aflutter now with improved HR control with increase in Amiodarone to 200 mg BID
QTc stable.
uptitration of BB limited by hypotension
Cont Eliquis for PAFlutter and Plavix for recent PCI Hb stable at 9.9 10/21.
Cont medical therapy of nonMI trop 0.1 from CHF, no cp.
Impression / Plan
-
.
PCP: Dr. Osman
Cardiology: Dr. Huntley
Impression:
Presentation with SOB
Acute on chronic HFrEF
Elevated troponin, suspected nonischemic myocardial injury
Elective cardiac catheterization for PCI LAD and circumflex 10/09/[address] Gutierrez, radial approach
Successful stenting of the mid LAD with a 3.0 x 34 mm [place] stent that was postdilated to high-pressure's with a 3.5 mm noncompliant balloon. Successful stenting of the circumflex extending into a terminal obtuse marginal branch. SHOCKWAVE
lithotripsy was performed with a 3.0 x 12 mm balloon and was followed by placement of a 3.0 x 15 mm Ady stent that was implanted at nominal pressures and postdilated with a 3.25 mm noncompliant balloon Low flow-Severe with mean gradient 35 mmHg
by echo 06/26/2025, undergoing TAVR
Biventricular cardiomyopathy with reduced ejection fraction, valvular and ischemic.
EF 20-25% with dilated RV and reduced RV systolic function 07/2025
Recent heart failure admission July 2025
Atrial fibrillation, new diagnosis 08/19/2025
Eliquis anticoagulation
New left bundle branch block
PAD suspected
Venous stasis dermatitis/ venous stasis
Hyperlipidemia
Rheumatoid arthritis, on Rituxan and hydroxychloroquine
Chronic anemia
Gait dysfunction
Echo 06/26/2025: EF 50%, severe with peak/mean 64/35 mmHg, mild to moderate MR, mild to moderate TR with PAP 54 mmHg
Echo 08/20/2025: EF 20 to 25% with global hypokinesis. Dilated right ventricle with mildly reduced RV systolic function. By atrial dilation. Heavily calcified aortic valve with reduced leaflet excursion.
Plan:
He recently underwent TAVR workup including cath resulting in LAD and circumflex PCI, scheduled for TAVR 11/12/2025, presented to with acute heart failure
- proBNP 8770. Chest x-ray with evidence of small to moderate bilateral pleural effusions
He is over 2L negative Is and Os and wt is coming down.
Reduce lasix to 40 mg IV daily after discussion with nephrology
Cont to monitor and replete electrolytes as needed, cr improved from 1.6 to 1.4 on 10/21 and remains 1.4 on 10/22
Potassium being repleted.
Echo Oct 21 2025: Severely reduced left ventricular systolic function with estimated LVEF of 23% by Almeida's method. Dilated right ventricle with mildly reduced RV function. Severely dilated left atrium. Moderately dilated right atrium. Severe
aortic valve leaflet thickening with severe low-flow low gradient aortic stenosis in the setting of a severely reduced ejection fraction. Estimated peak and mean trans aortic gradients of 35 and 22 mmHg, respectively. Trace aortic regurgitation..
Moderate mitral valve regurgitation. Moderate to severe tricuspid regurgitation with severe pulmonary hypertension. Estimated pulmonary artery systolic pressure of 68 mmHg, assuming a right atrial pressure of 15 mmHg. Small pericardial effusion is
present. Moderate size pleural effusion is present., last EF Jul 2025 20-25%.
After discussions with TAVR team, scheduled outpt TAVR moved up to Oct 29 from Nov 12.
Remains in aflutter now with improved HR control with increase in Amiodarone to 200 mg BID
QTc stable.
uptitration of BB limited by hypotension
Cont Eliquis for PAFlutter and Plavix for recent PCI Hb stable at 9.9 10/21.
Cont medical therapy of nonMI trop 0.1 from CHF, no cp.
Discussed with daughter primary service and nephrology
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
Subjective
Date of Service: October 22, 2025
Patient seen and examined. He feels much improved. Breathing better
Objective
Labs:
10/21/25 06:19
Labs
Hgb 9.9 g/dL (13.0-18.0) L 10/21/25 06:19
Hct 31.2 % (39.0-52.0) L 10/21/25 06:19
Plt Count 123 10^3/uL (130-400) L 10/21/25 06:19
Sodium 134 mmol/L (135-145) L 10/22/25 03:40
Potassium 2.9 mmol/L (3.5-5.1) L D 10/22/25 03:40
BUN 56 mg/dl (9-20) H 10/22/25 03:40
Creatinine 1.4 mg/dL (0.7-1.3) H 10/22/25 03:40
Glucose 117 mg/dl (70-99) H 10/22/25 03:40
Troponins
10/20/25 10/21/25 10/21/25
17:16 00:24 06:19
Troponin I 0.119 H* 0.123 H* 0.116 H*
10/21/25
12:18
Troponin I Cancelled
Vital Signs and I&O:
Vital Signs
Temp Pulse Resp BP Pulse Ox
97.4 F 78 18 107/67 91
10/22/25 03:34 10/22/25 05:00 10/22/25 03:34 10/22/25 03:34 10/22/25 03:34
Vital Signs
Temp Pulse Resp BP Pulse Ox
97.4 F 78 18 107/67 91
10/22/25 03:34 10/22/25 05:00 10/22/25 03:34 10/22/25 03:34 10/22/25 03:34
Intake & Output
10/20/25 10/21/25 10/22/25 10/23/25
06:59 06:59 06:59 06:59
Intake Total 240 / 240 1680 / 1680
Output Total 350 / 350 3975 / 3975
Balance -110 / -110 -2295 / -2295
Physical Exam
Physical Exam
General: No acute distress, AAOX3, frail appearing
Neck: Negative JVD
Heart: Regular, Negative S3 positive S1/S2, Negative S4, systolic ejection murmur grade II/
Lungs: CTA b/l, negative wheezes/rales/rhonchi
Abd: Positive BS, NT/ND, neg rebound/rigidity/guarding
Ext: Negative cyanosis/clubbing/edema
Neuro: nonfocal
[2025-10-22] MEDS: HYDROPHOR 1 APPLIC TOPICAL (08:04)
[2025-10-22] MEDS: ENTOCORT EC 3 MG PO (08:06)
[2025-10-22 08:09] VITALS: BP 103/82
--- NOTE | 2025-10-22 10:05 | W.PN.HOSP.TC ---
Today's Communication/Plan
-
see plan
Assessment / Plan
Assessment / Plan
Admission summary: 89 M h/o severe pending TAVR 11/12/25, CAD s/p recent stenting to LAD and L circumflex on Plavix and Eliquis, atrial fibrillation, HFpEF, and RA p/w acute on chronic HFpEF. He also has a nonproductive mild cough. His oxygen
saturation is 96 to 98% on room air while sitting upright. ECG is nonischemic. Troponin remains elevated at 0.119, BNP is elevated at 8000. CBC is unremarkable. He has a new MICHAEL. Family brought patient in due to his symptoms and also due to the
fact that he has a new dark urine output with decreased urine output.
Gen: NAD, AAOx3, cachectic, appears chronically ill
Eyes: EOMI, PERRLA, no scleral icterus.
Neck: supple, +JVD
CV: RRR, +S1/S2, 2/6 ROSA
Resp: CTAB, no rales, wheezes, or rhonchi.
Abd: remains +BS, soft, NT, ND
Skin: trace B/L LE edema
Neuro: CN 2-12 intact, non-focal.
Psych: Normal mood and affect.
CXR: Mild interstitial pulmonary edema with small to moderate bilateral pleural effusions.
Acute on chronic HFpEF:
-underlying severe
-with MICHAEL due to CRS, improving
-ECG non-ischemic
-proBNP 8770
-trops 0.119, 0.123, 0.116 (nonischemic myocardial injury)
-cont IV lasix
-daily wts, I/Os
-cont Zaroxolyn
-renal/cards following. As per discussion with Dr. Woodson cont IV Lasix today.
Other problems:
Hypokalemia, replete, recheck
Cachexia/underweight
CAD: cont statin/Plavix
PAF: cont Eliquis
RA: cont budesonide/Plaquenil
FULL/Eliquis
Dispo: goal for d/c tomorrow
Anticipated Discharge: Within 24 hours
Subjective/Interval History
-
Date of Service: October 22, 2025
No new complaints.
Objective Data
-
Labs:
Laboratory Results
10/22/25 10/22/25
03:40 13:00
Sodium 134 L Pending
Potassium 2.9 L D Pending
Chloride 99 Pending
Carbon Dioxide 31 H Pending
BUN 56 H Pending
Creatinine 1.4 H Pending
Glucose 117 H Pending
Calcium 9.0 Pending
Vital Signs:
Vital Signs
Temp Pulse Resp BP Pulse Ox
97.8 F 90 18 103/82 94
10/22/25 08:22 10/22/25 09:00 10/22/25 08:22 10/22/25 08:09 10/22/25 08:22
I&O
10/21/25 10/22/25 10/23/25
06:59 06:59 06:59
Intake Total 240 / 240 1680 / 1680
Output Total 350 / 350 3975 / 3975
Balance -110 / -110 -2295 / -2295
[2025-10-22 14:12] LABS: Blood Urea Nitrogen 58 mg/dl (9-20); Calcium 9.2 mg/dl (8.4-10.2); Carbon Dioxide 31 mmol/L (22-30); Chloride 99 mmol/L (98-107); Estimated Creatinine Clearance 36 ml/min; Glucose 147 mg/dl (70-99); Potassium 4.3 mmol/L (3.5-5.1); Sodium 135 mmol/L (135-145); eGFR 52.51
[2025-10-22] MEDS: COLACE 100 MG PO ×2 (14:56→19:21)
[2025-10-22] MEDS: LASIX 40 MG IV (14:58)
[2025-10-22 16:28] VITALS: BP 107/69
[2025-10-22] MEDS: LIPITOR 40 MG PO (17:15)
--- NOTE | 2025-10-22 17:27 | PTCARENOTE ---
Pt received this am with no c/o of any pain or sob. Room air sat 97%. OOB to the BR and the chair with the walker and 1 assist. Afib on the monitor, rate in the 90's to 110's.
[2025-10-22 18:55] VITALS: BP 98/61
[2025-10-22 19:22] VITALS: BP 103/68
[2025-10-22] MEDS: MELATONIN 10 MG PO (21:30)
[2025-10-22] MEDS: FLOMAX 0.8 MG PO (21:32)
--- NOTE | 2025-10-22 22:29 | PTCARENOTE ---
Received pt at change of shift resting in bed. SR-ST w/ BBBC on tele, HR 90's-100's. pt denies any CP or SOB at this time. PRN Melatonin administered per pt request--see JAN. Fall risk precautions maintained, pt encouraged to call RN for assistance
ambulating. pt calls appropriately, call kurtz within reach.
[2025-10-22 22:36] VITALS: BP 105/70
[2025-10-23] VITALS (8 sets, daily range): BP systolic 89–107; BP diastolic 60–75; PULSE 93; O2SAT 97; BMI 22.7
[2025-10-23 03:24] LABS: Blood Urea Nitrogen 55 mg/dl (9-20); Calcium 8.9 mg/dl (8.4-10.2); Carbon Dioxide 27 mmol/L (22-30); Chloride 100 mmol/L (98-107); Estimated Creatinine Clearance 37 ml/min; Glucose 132 mg/dl (70-99); Potassium 3.6 mmol/L (3.5-5.1); Sodium 132 mmol/L (135-145); eGFR 52.51
--- NOTE | 2025-10-23 07:49 | PN.CDI ---
CDI
- -
CDI:
Physician Documentation Request
Admit Date: 10/20/25 22:51
Dear Doctor Kari,
Please review the following and provide your response in the progress notes.
Clinical Indicators:
10/21/25 15:02 - Wound Note
#Wound Location and type/assessment:
#....Stage 1 to sacrum.
Nurses Assessment, 10/21
Selected Entries
10/21/25
01:39
Pressure injury stage [Present on admission Sacrum] Stage 1
Physician documentation of the type and location of wounds is required for compliant documentation. Based on the above clinical findings and your assessment, please provide the following in your progress note:
Yes, Stage 1 pressure injury, sacrum, POA
No, Stage 1 pressure injury sacrum
Other (please specify)
1. Location of the ulcer/wound, including laterality.
2. Type (etiology) of ulcer/wound:
- Diabetic ulcer
- Arterial (ischemic) ulcer
- Traumatic wound
- Venous stasis ulcer
- Pressure (decubitus) ulcer
- Non-healing surgical wound
3. For a pressure ulcer, please also include the stage* of the ulcer:
- Stage 1 - Skin intact, non-blanchable redness
- Stage 2 - Partial thickness loss of dermis, includes intact or open blister
- Stage 3 - Full thickness tissue not including bone, tendon or muscle
- Stage 4 - Full thickness tissue loss, including exposed bone, tendon or muscle
- Unstageable - Full thickness loss in which the base of the ulcer is covered by slough (yellow, larsen, banks, green or brown) and/or eschar (larsen, brown or black) in the wound bed.
Use of terms such as suspected, likely, concern for, or probable (associated with a specific diagnosis that is being evaluated, monitored, or treated as if it exists) are acceptable and can be coded in the inpatient setting, when documented at the
time of discharge.
Thank you,
Susy Barber RN BSN CCDS
CDI Specialist
Please contact via tiger text
Please use your independent medical judgment in providing your response.
*Source: National Pressure Ulcer Advisory Panel (NPUAP)
--- NOTE | 2025-10-23 08:00 | PTCARENOTE ---
pt received from previous RN, oriented, in bed. Afib w/ BBB on the monitor, SBP 100s. Doppler pedal pulses. RA, 97% POX. dry nonproductive cough. pt abdomen s/n, denies n/v. voids in urinal. Mepilex on sacrum. LE red, dry, flaky-Hydrophor applied as
ordered. PIV. DIANA Rothman aware of K this am, K repleted. see worklist for VS, I&O, and assessment.
[2025-10-23] MEDS: ELIQUIS 2.5 MG PO (08:43)
[2025-10-23] MEDS: PACERONE 200 MG PO (08:43)
[2025-10-23] MEDS: HYDROPHOR 1 APPLIC TOPICAL (08:43)
[2025-10-23] MEDS: KCL 40 MEQ PO (08:43)
[2025-10-23] MEDS: PLAQUENIL 200 MG PO (08:43)
[2025-10-23] MEDS: PLAVIX 75 MG PO (08:43)
[2025-10-23] MEDS: COLACE 100 MG PO (08:43)
[2025-10-23] MEDS: ENTOCORT EC 3 MG PO (08:43)
[2025-10-23] MEDS: LASIX 40 MG IV (08:44)
--- NOTE | 2025-10-23 09:04 | W.PN.HOSP.TC ---
Addendum entered and electronically signed by Jose Miguel Pierce MD 10/23/25 10:07:
Correction: acute HFrEF
Total time spent on d/c = 33 min. This included today's physical exam, progress note, review of laboratory and diagnostic data, preparation of discharge documents and prescriptions, and discussions about the pt's hospital course and discharge plan
with the patient and other medical administrator involved in the patient's care.
Original Note:
Today's Communication/Plan
-
see plan
Assessment / Plan
Assessment / Plan
Admission summary: 89 M h/o severe pending TAVR 11/12/25, CAD s/p recent stenting to LAD and L circumflex on Plavix and Eliquis, atrial fibrillation, HFpEF, and RA p/w acute on chronic HFpEF. He also has a nonproductive mild cough. His oxygen
saturation is 96 to 98% on room air while sitting upright. ECG is nonischemic. Troponin remains elevated at 0.119, BNP is elevated at 8000. CBC is unremarkable. He has a new MICHAEL. Family brought patient in due to his symptoms and also due to the
fact that he has a new dark urine output with decreased urine output.
Gen: NAD, AAOx3, cachectic, appears chronically ill
Eyes: EOMI, PERRLA, no scleral icterus.
Neck: supple, +JVD
CV: irreg/irreg, +S1/S2, 2/6 ROSA
Resp: Rales R base, dec BS L base
Abd: +BS, soft, NT, ND
Skin: remains trace B/L LE edema
Neuro: CN 2-12 intact, non-focal.
Psych: Normal mood and affect.
CXR: Mild interstitial pulmonary edema with small to moderate bilateral pleural effusions.
Acute on chronic HFpEF:
-underlying severe
-with MICHAEL due to CRS, improving
-ECG non-ischemic
-proBNP 8770
-trops 0.119, 0.123, 0.116 (nonischemic myocardial injury)
-cont IV lasix
-daily wts, I/Os
-cont Zaroxolyn
-renal/cards following. As per discussion with Dr. Woodson cont IV Lasix today.
Other problems:
Stage 1 pressure injury, sacrum, POA
Hyponatremia, mild
Hypokalemia, resolved
Cachexia/underweight
CAD: cont statin/Plavix
PAF: cont Eliquis/Amio
RA: cont budesonide/Plaquenil
FULL/Eliquis
Dispo: pending discussion with cardiology
Anticipated Discharge: Within 24 hours
Subjective/Interval History
-
Date of Service: October 23, 2025
Denies SOB.
Objective Data
-
Labs:
Laboratory Results
10/23/25
02:38
Sodium 132 L
Potassium 3.6
Chloride 100
Carbon Dioxide 27
BUN 55 H
Creatinine 1.3
Glucose 132 H
Calcium 8.9
Vital Signs:
Vital Signs
Temp Pulse Resp BP Pulse Ox
98.1 F 101 18 107/65 97
10/23/25 08:11 10/23/25 08:00 10/23/25 08:11 10/23/25 08:44 10/23/25 08:11
I&O
10/22/25 10/23/25 10/24/25
06:59 06:59 06:59
Intake Total 1680 / 1680 540 / 540
Output Total 3975 / 3975 1375 / 1375
Balance -2295 / -2295 -835 / -835
--- NOTE | 2025-10-23 09:17 | CM ---
dc plan remains- TAVR this admission on 10/29- cm to resume [facility] for ongoing LE wound mngt and drsg changes 3 x wk.
--- NOTE | 2025-10-23 09:40 | W.PN.CARDCBS ---
Addendum entered and electronically signed by Freddy Tapia DO 10/23/25 11:17:
I saw and examined the patient.
The Wastewater Process Engineer's note was reviewed and I agree with the note.
Comment:
Patient seen and examined this morning. No acute events overnight. Patient resting comfortably in chair. Reports feeling well. Denies chest pain, shortness of breath, palpitations, weakness
GENERAL: no acute distress
EYE: sclera anicteric
NECK: Supple, no JVD, no carotid bruit appreciated
ENT: normal nose, moist mucosal membranes
CARDIAC: Irregularly irregular, +S1/diminished S2, 3/6 systolic ejection murmur; no rubs, or gallops
CHEST/PULMONARY: Normal effort, clear breath sounds
ABDOMEN: Soft, without focal tenderness or distention
NEUROLOGICAL: Alert and oriented x3
SKIN: Warm and dry, no rash; trace bilateral lower extremity edema
PSYCH: Normal and appropriate interaction.
Telemetry shows AF
A/P as below
Increase oral diuretic Lasix to 60 mg twice daily (outpatient dosing 40 mg twice daily). Patient will have follow-up in office on 10/26/2025 for reassessment of volume status with planned TAVR on 10/29/2025. Discussed case with primary
service and CT surgical service.
Continue Eliquis, Plavix
Stable for DC from CV standpoint
Original Note:
Today's Communication / Plan
-
transition to oral diuretic
ok for discharge from cardiac standpoint with close outpt f/u, made appointment for 10/26/25
Impression / Plan
-
.
PCP: Dr. Osman
Cardiology: Dr. Huntley
Impression:
Presentation with SOB
Acute on chronic HFrEF
Elevated troponin, suspected nonischemic myocardial injury
Elective cardiac catheterization for PCI LAD and circumflex 10/09/[address] Gutierrez, radial approach
Successful stenting of the mid LAD with a 3.0 x 34 mm [place] stent that was postdilated to high-pressure's with a 3.5 mm noncompliant balloon. Successful stenting of the circumflex extending into a terminal obtuse marginal branch. SHOCKWAVE
lithotripsy was performed with a 3.0 x 12 mm balloon and was followed by placement of a 3.0 x 15 mm Ady stent that was implanted at nominal pressures and postdilated with a 3.25 mm noncompliant balloon Low flow-Severe with mean gradient 35 mmHg
by echo 06/26/2025, undergoing TAVR
Biventricular cardiomyopathy with reduced ejection fraction, valvular and ischemic.
EF 20-25% with dilated RV and reduced RV systolic function 07/2025
Recent heart failure admission July 2025
Atrial fibrillation, new diagnosis 08/19/2025
Eliquis anticoagulation
New left bundle branch block
PAD suspected
Venous stasis dermatitis/ venous stasis
Hyperlipidemia
Rheumatoid arthritis, on Rituxan and hydroxychloroquine
Chronic anemia
Gait dysfunction
Echo 06/26/2025: EF 50%, severe with peak/mean 64/35 mmHg, mild to moderate MR, mild to moderate TR with PAP 54 mmHg
Echo 08/20/2025: EF 20 to 25% with global hypokinesis. Dilated right ventricle with mildly reduced RV systolic function. By atrial dilation. Heavily calcified aortic valve with reduced leaflet excursion.
Echo Oct 21 2025: Severely reduced left ventricular systolic function with estimated LVEF of 23% by Almeida's method. Dilated right ventricle with mildly reduced RV function. Severely dilated left atrium. Moderately dilated right atrium. Severe
aortic valve leaflet thickening with severe low-flow low gradient aortic stenosis in the setting of a severely reduced ejection fraction. Estimated peak and mean trans aortic gradients of 35 and 22 mmHg, respectively. Trace aortic regurgitation..
Moderate mitral valve regurgitation. Moderate to severe tricuspid regurgitation with severe pulmonary hypertension. Estimated pulmonary artery systolic pressure of 68 mmHg, assuming a right atrial pressure of 15 mmHg. Small pericardial effusion is
present. Moderate size pleural effusion is present., last EF Jul 2025 20-25%.
Plan:
He recently underwent TAVR workup including cath resulting in LAD and circumflex PCI, scheduled for TAVR 10/29/2025 (date moved up from 11/12/2025), presented to with acute heart failure
- proBNP 8770. Chest x-ray with evidence of small to moderate bilateral pleural effusions
-He is 800 cc negative overnight and wt had been trending down but up 2 lbs overnight. Wt down 3 lbs since admission
-edema significantly improved per pt
-transition to oral Lasix. Was on Lasix 40 mg bid in home setting. Will discharge on higher dose Lasix 60 mg bid with repeat BMP in 3 days. Rec'd lasix 40 mg IV 10/23 a.m.
-Cont to monitor and replete electrolytes as needed, cr improved from 1.6 to 1.4 on 10/21 and remains 1.4 on 10/22, down to 1.3 10/23 (baseline 0.8-1.2)
-Potassium being repleted-rec'd KCl 40 meq x 1 10/23
After discussions with TAVR team, scheduled outpt TAVR moved up to Oct 29 from Nov 12.
Remains in aflutter now with improved HR control with increase in Amiodarone to 200 mg BID
QTc stable.
uptitration of BB limited by hypotension
telem personally reviewed aflutter 87-110.
Cont Eliquis for PAFlutter and Plavix for recent PCI Hb stable at 9.9 10/21.
Cont medical therapy of nonMI trop 0.1 from CHF, no cp.
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
Subjective
Date of Service: October 23, 2025
LE edema improved
denies SOB
Objective
Labs:
10/21/25 06:19
10/23/25 02:38
Labs
Hgb 9.9 g/dL (13.0-18.0) L 10/21/25 06:19
Hct 31.2 % (39.0-52.0) L 10/21/25 06:19
Plt Count 123 10^3/uL (130-400) L 10/21/25 06:19
Sodium 132 mmol/L (135-145) L 10/23/25 02:38
Potassium 3.6 mmol/L (3.5-5.1) 10/23/25 02:38
BUN 55 mg/dl (9-20) H 10/23/25 02:38
Creatinine 1.3 mg/dL (0.7-1.3) 10/23/25 02:38
Glucose 132 mg/dl (70-99) H 10/23/25 02:38
Troponins
10/20/25 10/21/25 10/21/25
17:16 00:24 06:19
Troponin I 0.119 H* 0.123 H* 0.116 H*
10/21/25
12:18
Troponin I Cancelled
Vital Signs and I&O:
Vital Signs
Temp Pulse Resp BP Pulse Ox
98.1 F 101 18 107/65 97
10/23/25 08:11 10/23/25 08:00 10/23/25 08:11 10/23/25 08:44 10/23/25 08:11
Vital Signs
Temp Pulse Resp BP Pulse Ox
98.1 F 101 18 107/65 97
10/23/25 08:11 10/23/25 08:00 10/23/25 08:11 10/23/25 08:44 10/23/25 08:11
Intake & Output
10/21/25 10/22/25 10/23/25 10/24/25
06:59 06:59 06:59 06:59
Intake Total 240 / 240 1680 / 1680 540 / 540
Output Total 350 / 350 3975 / 3975 1375 / 1375
Balance -110 / -110 -2295 / -2295 -835 / -835
Physical Exam
Physical Exam
GEN: No distress, awake, Ox3
HEENT: supple, anicteric, mmm
LUNGS: CTA, no wheezes/rales
CV: Reg, S1/S2, 2/6 ROSA heard t/o precordium
ABD: soft, BS+, NT/ND
EXT: tr edema B/L LEs-thighs only
NEURO: Gross non-focal
SKIN: No rash
--- NOTE | 2025-10-23 11:14 | W.PN.NEPH.PH ---
Today's Communication / Plan
-
Follow BMP
Assessment/Plan
-
89-year-old who has past medical history significant for atrial fibrillation on anticoagulation, CHF, critical aortic stenosis, BPH, RA, NETTIE, CAD recently status post multiple stents presents to the emergency department with progressive weakness,
shortness of breath and dyspnea on exertion.
Brief medical history longstanding history of cardiac disease with severe aortic stenosis was found to have a two-vessel CAD cardiac stenting August and at that time it was felt that stenting prior to TAVR will benefit him. He underwent successful
PCI to the LAD on October 09. He had shockwave angioplasty to the left circumflex and 1 drug-eluting stent via the radial artery.
Recently diuretics were intensified to furosemide 80 mg twice daily plus metolazone. Then titrated to furosemide 40 twice daily. Urine output has decreased few days prior to admission with dark urine
Family was at the bedside help provide history
Renal consultation for acute kidney injury creatinine 1.6 from a relatively normal baseline for age of [age] years old
Impression
Acute on chronic kidney disease baseline creatinine 1.2/cardiorenal improving with diuretics plus or minus recent IV contrast
Critical planned TAVR November 12.
Acute on chronic CHF ejection fraction 20 to 25% as of 08/20/2025
BPH stable
Anemia of chronic disease�stable
Plan.
Lasix per cardiology
po regimen per cardiology
follow BMP
TAVR moved up
DC planning
-
-
Date of Service: October 23, 2025
CC / HPI / ROS
-
Chief Complaint:
MICHAEL
History of Present Illness:
MICHAEL/Cr stable 1.3
K low 2.8
Na low 132 stable
diuresing well for decompensated HF
Review of Systems:
no CP/SOB
Labs
-
Labs:
WBC 8.7 10^3/uL (4.8-10.8) 10/21/25 06:19
RBC 3.37 10^6/uL (4.70-6.10) L 10/21/25 06:19
Hgb 9.9 g/dL (13.0-18.0) L 10/21/25 06:19
Hct 31.2 % (39.0-52.0) L 10/21/25 06:19
Plt Count 123 10^3/uL (130-400) L 10/21/25 06:19
Sodium 132 mmol/L (135-145) L 10/23/25 02:38
Potassium 3.6 mmol/L (3.5-5.1) 10/23/25 02:38
Chloride 100 mmol/L (98-107) 10/23/25 02:38
Carbon Dioxide 27 mmol/L (22-30) 10/23/25 02:38
BUN 55 mg/dl (9-20) H 10/23/25 02:38
Creatinine 1.3 mg/dL (0.7-1.3) 10/23/25 02:38
eGFR 52.51 10/23/25 02:38
Glucose 132 mg/dl (70-99) H 10/23/25 02:38
Calcium 8.9 mg/dl (8.4-10.2) 10/23/25 02:38
Btd-P-Khlditmiood Pept 8770 pg/ml 10/20/25 17:16
Albumin 3.7 g/dl (3.5-5.0) 10/20/25 17:16
Physical Exam
-
Vital Signs:
Vital Signs
Temp Pulse Resp BP Pulse Ox
98.1 F 87 17 107/65 97
10/23/25 11:00 10/23/25 11:00 10/23/25 11:00 10/23/25 08:44 10/23/25 11:00
Cardiovascular:: Regular rate and rhythm
Respiratory:: Bilateral: Coarse
Lung Excursion:: Normal
Abdomen:: Nontender and Soft
Bowel Sounds:: Normal
Extremity Edema:: None: Bilateral:
[2025-10-23 11:20] LABS: INR 1.58; PT 19.0 Sec (11.4-14.6)
--- NOTE | 2025-10-23 16:40 | PTCARENOTE ---
lab work drawn. pt discharged home w/ daughter and son. pt given BSC by PT/OT. discharge instructions reviewed w/ patient and family. questions answered, home meds reviewed. pt aware of special med instructions pre TAVR next week that Anne went
over w/ patient. IV and tele dc'd, pt dressed self. pt voided in urinal. pt left w/ all belongings via volunteer and wheelchair.
--- NOTE | 2025-10-24 12:23 | W.DCSUMMARY ---
Discharge Summary
Discharge Data
Date of Admission: 10/20/25
Date of Discharge: 10/23/25
-
Pending Results: No
Hospital Course
Primary diagnoses:
Acute on chronic heart failure with reduced ejection fraction
Acute kidney injury due to cardiorenal syndrome
Secondary diagnoses:
Nonischemic myocardial injury
Severe aortic stenosis
Stage 1 pressure injury, sacrum, POA
Hyponatremia
Hypokalemia
Cachexia/underweight
Coronary artery disease
Paroxysmal atrial fibrillation
Rheumatoid arthritis
Consultants:
Cardiology
Imaging:
CXR: Mild interstitial pulmonary edema with small to moderate bilateral pleural effusions.
Renal U/S: Mild right renal collecting system dilatation. No findings to suggest left renal collecting system dilatation. Findings suggesting some possible mild right chronic medical renal disease. Trabeculated urinary bladder with bilateral
ureteral jets seen. Small bilateral pleural effusions, left slightly greater than right.
Hospital course: 89-year-old male present with a chief complaint shortness of breath as outlined in the H&P done on admission. Imaging above. He had underlying severe aortic stenosis. He also acute kidney injury due to cardiorenal syndrome. ECG
was nonischemic. proBNP was 8770. His troponins were 0.119, 0.123, 0.116 (nonischemic myocardial injury). He was diuresed with IV Lasix. His symptoms improved. He was seen in consultation by nephrology and cardiology. He was discharged in
medically stable condition. He is scheduled for TAVR 10/29/25.
Discharge Plan
-
Patient Disposition: Home (Routine Discharge)
Discharge Diagnosis/Procedures: Acute on chronic HFrEF
Condition: Good
Diet: Low Cholesterol and Low Sodium
Additional Diets: fluid restrict to 1200cc/day
Activity: As tolerated
Driving Restrictions: As prior to admission
Blood Work: bmp and CBC in 3 days, script from PCP
Specialty Instructions: Weigh Daily- Call MD for wt gain/loss 3 lbs overnight/5 lbs in 1 week
Activity Restrictions/Additional Instructions:
Wound Care Instructions Bilateral Lower Legs- Clean with normal saline of soap and water. Apply mineral oil and wrap legs with CASEY wrap daily.
Sacral foam to Sacrum- Change Q 3 days and PRN if loose
Air cushion to chair
Encourage good intake
Apply Compression daily.
Referrals:
[facility] [Outside]
Referral Note: resume previous care- lower extremity wound dressing changes 3x/wk
Joseph Osman MD [Family Provider, Family Practice] - in less than 1 week
Natalia Cha CRNP [Specified Professional Personl, Cardiology] - 10/27/25 12:40 pm
Referral Note: You have a cardiology followup appointment with Dr Huntley's nurse practitioner at the [facility].
Prescriptions:
New
furosemide 20 mg Tablet
60 mg PO BID AT 0800,1600 Qty: 180 0RF
Continued
alendronate 35 mg Tablet
35 mg PO SA
hydroxychloroquine [Plaquenil] 200 mg Tablet
200 mg PO DAILY
loperamide 2 mg Capsule
2 mg PO PRN PRN (Reason: DIARRHEA)
therapeutic multivitamin Tablet
1 tab PO DAILY
acetaminophen 650 mg Tablet Extended Release
1,300 mg PO Q8HPRN PRN (Reason: mild pain)
budesonide 3 mg Capsule,Delayed,Extend.Release
3 mg PO DAILY
Rituxan 10 mg/mL Concentrate
See Rx Instructions .ROUTE .COMPLEX
Rx Instructions:
1 dose intravenously every 5 months
omega 9-gzp-shy-fish oil [Fish Oil] 1,200 (144-216) mg Capsule
1 cap PO BID
Eliquis 2.5 mg tablet
2.5 mg PO BID Qty: 60 0RF
cholecalciferol (vitamin D3) [Vitamin D3] 25 mcg (1,000 unit) Tablet
25 mcg PO DAILY
Xiidra 5 % Dropperette
1 drp OPHTHALMIC (EYE) BID
Rx Instructions:
BOTH EYES
metolazone
2.5 mg PO DAILY PRN (Reason: weight gain)
amiodarone 200 mg tablet
200 mg PO DAILY
tamsulosin 0.4 mg Capsule
0.8 mg PO HS
aspirin 81 mg Tablet,Chewable
81 mg PO DAILY Qty: 1 0RF
Rx Instructions:
Stop after 1 week
clopidogrel 75 mg Tablet
75 mg PO DAILY Qty: 90 5RF
atorvastatin 40 mg Tablet
40 mg PO QPM Qty: 30 5RF
potassium 99 mg Tablet
99 mg PO DAILY
Discontinued
furosemide [Lasix] 20 mg tablet
40 mg PO BID
Discharge Orders:
Discharge Patient (As Directed); Ordered 10/23/25
Ordered By: Jose Miguel Pierce
Care Plan Goals
Care Plan Goals:
Problem: Readiness for enhanced knowledge related to diagnosis and treatment plan
Goal: Understand your diagnosis and treatment plan needs, including medications if applicable.
Instructions: Know your diagnosis, underlying causes and treatment plan options, including medications if applicable. Consult with your health care team to learn about your diagnosis and treatment plan, including medications if applicable.
Discharge Date and Time
Discharge Date/Time: 10/23/25 17:07
Print Language: BURUNDIAN
== END 2025-10-23 17:07 | disposition home or self-care (01) | DRG 291 ==
LOC: IVU 22:51
PROVIDERS: Nurse Practitioner Acute Care; Specialist; Student in an Organized Health Care Education/Training Program; ADMITTING PHYSICIAN Internal Medicine; ATTENDING PHYSICIAN Internal Medicine; EMERGENCY PHYSICIAN Emergency Medicine; FAMILY PHYSICIAN Family Medicine; OTHER PHYSICIAN Internal Medicine Nephrology; OTHER PHYSICIAN Nuclear Medicine Nuclear Cardiology
DX: I13.0 Hypertensive heart and chronic kidney disease with heart failure and stage 1 through stage 4 chronic kidney disease, or unspecified chronic kidney disease (principal); I50.23 Acute on chronic systolic (congestive) heart failure; N17.9 Acute kidney failure, unspecified; E87.1 Hypo-osmolality and hyponatremia; R64 Cachexia; I48.92 Unspecified atrial flutter; N18.9 Chronic kidney disease, unspecified; I35.0 Nonrheumatic aortic (valve) stenosis; L89.151 Pressure ulcer of sacral region, stage 1; E87.6 Hypokalemia; R63.6 Underweight; I25.10 Atherosclerotic heart disease of native coronary artery without angina pectoris; I48.0 Paroxysmal atrial fibrillation; M06.9 Rheumatoid arthritis, unspecified; N40.0 Benign prostatic hyperplasia without lower urinary tract symptoms; G47.33 Obstructive sleep apnea (adult) (pediatric); Z79.899 Other long term (current) drug therapy; Z88.0 Allergy status to penicillin; Z88.2 Allergy status to sulfonamides; Z79.82 Long term (current) use of aspirin; Z79.83 Long term (current) use of bisphosphonates; Z87.891 Personal history of nicotine dependence; Z95.5 Presence of coronary angioplasty implant and graft; Z88.3 Allergy status to other anti-infective agents; Z79.02 Long term (current) use of antithrombotics/antiplatelets; Z79.620 Long term (current) use of immunosuppressive biologic; Z79.01 Long term (current) use of anticoagulants; D63.1 Anemia in chronic kidney disease; E78.5 Hyperlipidemia, unspecified; I42.9 Cardiomyopathy, unspecified; I44.7 Left bundle-branch block, unspecified; M81.0 Age-related osteoporosis without current pathological fracture; Z11.52 Encounter for screening for COVID-19
CPT/HCPCS: 71046; 76770; 80048; 80053; 81003; 81015; 82570; 83735; 83880; 84300; 84484; 85025; 85027; 85610; 86850; 86900; 86901; 87070; 87086; 87502; 87811; 93005; 93308; 93321; 93325; 96374; 97116; 97163; 99285

== ENCOUNTER 2025-10-26 20:05 | Inpatient (IN) | payer MEDICARE, BC, SELFPAY ==
[2025-10-26] VITALS (8 sets, daily range): BP systolic 91–106; BP diastolic 60–74; BMI 24.1
--- NOTE | 2025-10-26 17:43 | ED.GENMED ---
History of Present Illness
General
Chief Complaint: Weakness
Time Seen by Provider: 10/26/25 16:53
History of Present Illness
History of Present Illness:
see MDM
Phy Exam
Physical Exam
Physical Exam:
see MDM
Course
Orders/Labs/Results
Orders:
Orders
10/26/25
Electrocardiogram (*1) Stat
Comment: DONE EMR
10/26/25 17:35
Cardiac Monitoring- Treatment ONCE
CR Chest - 2 Views Urgent
Comment:
Reason For Exam: chf
10/26/25 17:38
Comprehensive Metabolic Panel Urgent
Lipase Urgent
NT-proBNP Urgent
10/26/25 17:39
Complete Blood Count/With Diff Urgent
10/26/25 18:41
Furosemide [Lasix] 40 mg IV NOW STA
10/26/25 18:46
Urinalysis Reflex To Culture Urgent
Date Specimen was Collected: 10/26/25
Time Specimen was Collected: 18:44
10/26/25 18:52
Furosemide [Lasix] 20 mg IV NOW STA
Abnormal Lab Results
10/26/25 10/26/25
17:38 17:39
RBC 3.62 L 10^6/uL
(4.70-6.10)
Hgb 10.2 L g/dL
(13.0-18.0)
Hct 32.3 L %
(39.0-52.0)
MCHC 31.6 L g/dL
(33.0-37.0)
RDW 14.6 H %
(11.5-14.5)
MPV 11.0 H fL
(7.4-10.4)
Absolute Neuts (auto) 6.7 H 10^3/uL
(1.4-6.5)
Absolute Lymphs (auto) 0.7 L 10^3/uL
(1.2-3.4)
Absolute Monos (auto) 0.9 H 10^3/uL
(0.1-0.6)
Neutrophils % 77.7 H %
(42.2-75.2)
Lymphocytes % 7.6 L %
(20.5-51.1)
Monocytes % 11.0 H %
(1.7-9.3)
Sodium 131 L mmol/L
(135-145)
Chloride 95 L mmol/L
(98-107)
BUN 67 H mg/dl
(9-20)
Creatinine 1.6 H mg/dL
(0.7-1.3)
Glucose 112 H mg/dl
(70-99)
10/26/25 17:39
10/26/25 17:38
Vital Signs
Initial and Last Documented VS:
Initial Vital Signs
Temp Pulse Resp BP Pulse Ox
36.7 C 75 18 104/72 93
10/26/25 16:35 10/26/25 16:35 10/26/25 16:35 10/26/25 16:35 10/26/25 16:35
Last Documented Vital Signs
Temp Pulse Resp BP Pulse Ox
36.7 C 99 20 98/68 98
10/26/25 16:35 10/26/25 18:45 10/26/25 18:45 10/26/25 18:00 10/26/25 17:45
MDM/Problems Addressed
MDM/Problems Addressed:
Note:
CHIEF COMPLAINT(S)
The patient presents with shortness of breath, fatigue, lack of appetite, and confusion.
HISTORY OF PRESENT ILLNESS
The patient is an 89-year-old male with a past medical history chf, PAF, severe scheduled for AVR on 10/29, who was recently discharged 3 days ago after CHF exacerbation. his condition has worsened since discharge, presenting with significant
fatigue and shortness of breath. Her daughter reports he has been experiencing episodes of confusion and has not had an appetite, which is unusual as he previously managed eating and drinking well. his urine was noted to be brown yesterday but has
since cleared today. The patient has been on fluid restriction to 40 ounces daily but finds it challenging to maintain. he experiences dry mouth, which encourages hi,to drink. The patient reports feelings of stomach distress after eating, which he
associates with his medication regimen. The daughter mentions changes in the diuretic dosage; the patient was previously on 40 mg of Lasix twice a day and was discharged on an increased dose of 60 mg twice a day. Prior to that, she had been
temporarily increased to 80 mg, leading to dehydration. During hospitalization, another medication was briefly increased. Despite a significant weight gain from 138 pounds to 153 pounds over eight weeks, he reports a bird-like appetite. The patient
is awaiting aortic valve evaluation on . he also has a history of atrial fibrillation, with concerns about recent symptomatic episodes including dizziness and extreme shortness of breath, couldn't go 5 feet without severe SOB. The patient
has no home oxygen, and an echo is anticipated.
PAST MEDICAL AND SURGICAL HISTORY
The patient has a history of aortic valve issues and had two cardiac stents placed in the past.
CHRONIC MEDICAL CONDITIONS SIGNIFICANTLY AFFECTING CARE
The patient has a history of atrial fibrillation and aortic valve issues, which are currently complicating her care.
SOCIAL DETERMINANTS AFFECTING HEALTH
The patient is currently facing difficulties adjusting to a fluid restriction regimen due to her dry mouth and lack of appetite.
REVIEW OF SYSTEMS
- Respiratory: Shortness of breath, lack of oxygen at home.
- Gastrointestinal: Lack of appetite, stomach distress post-eating.
- Urinary: Discolored urine (brown) intermittently.
- Neurological: Episodes of confusion.
- General: Fatigue, significant weight gain despite poor appetite.
PHYSICAL EXAM
GENERAL: Alert , in no apparent distress
EYE: pupils equal and reactive
NECK: Supple
ENT: o/p clr, mmm.
CARDIAC: irregularly irregular significant systolic murmur
LUNGS: Diminished bases crackles, no tachypnea
ABDOMEN: Soft, without focal tenderness, no r/g, no cvat, normal bowel sounds
NEUROLOGICAL: Alert and oriented, no focal neuro deficits
SKIN: Warm and dry, skin intact.
MUSCULOSKELETAL: Moderate pitting edema up through his thighs 3+ edema, well perfused. neg chaka's sign
PSYCH: Normal and appropriate interaction.
PROBLEM LIST
- Acute Problems:
- Shortness of breath
- Fatigue
- Confusion
- Lack of appetite
- Chronic Problems:
- Atrial fibrillation
- Aortic valve issues
PLAN
- The patient will remain under observation and possibly be admitted to adjust medications and address fluid overload.
- Coordination of care with the cardiology team regarding the scheduled aortic valve evaluation.
DIFFERENTIAL DIAGNOSIS
The Differential Diagnosis includes, in no particular order and is not limited to:
1. Congestive Heart Failure exacerbation
2. Medication-induced dehydration
3. Electrolyte imbalance
4. Urinary tract infection
5. Aortic valve insufficiency
6. Renal failure or insufficiency
7. Pulmonary edema
8. Atrial fibrillation with rapid ventricular response
9. Hepatic congestion
10. Medication side effects (e.g., from diuretics)
CARE-UPDATE
10/26/25 - 18:56
Increased dyspnea and weight gain of two pounds over the last two days, with worsening edema in the legs and proximal thighs, and notable general fatigue without appetite noted. Despite no exertional chest pain, the patient experiences significant
shortness of breath with minimal activity. Blood pressure remains soft, hovering between 90s and low 100s systolic. Chest X-ray shows worsening pulmonary edema and pleural effusion. BNP levels are elevated. Plan includes admission for gentle
diuresis and adjusting Lasix dose to 20 mg IV due to current blood pressure status.
*Pulse Oximetry
SaO2: 98
Oxygen Mode of Delivery: Room air
Patient hypoxic: no (96)
*Critical Care Note
Total Time (30-74mins, 75-104mins- exclusive of procedures): Not Applicable
ED Attending Note
-
Portions of this chart may have been created with voice recognition software.� Occasional wrong word or��sound alike� substitutions may have occurred due to the inherent limitations of voice recognition software.
Discharge Plan
Departure
Patient Disposition: Admit
Date of Disposition: 10/26/25
Time of Disposition: 18:58
Admit to: Telemetry
Presentation/result/management discussed w/ accepting MD/DO: Hospitalist
Condition: Fair
Covid-19: Not Applicable
Discharge Problem:
CHF (congestive heart failure), MICHAEL (acute kidney injury), Aortic stenosis
Prescriptions:
No Action
alendronate 35 mg Tablet
35 mg PO SA
hydroxychloroquine [Plaquenil] 200 mg Tablet
200 mg PO DAILY
therapeutic multivitamin Tablet
1 tab PO DAILY
acetaminophen 650 mg Tablet Extended Release
1,300 mg PO Q8HPRN PRN (Reason: mild pain)
budesonide 3 mg Capsule,Delayed,Extend.Release
3 mg PO DAILY
Rituxan 10 mg/mL Concentrate
See Rx Instructions .ROUTE .COMPLEX
Rx Instructions:
1 dose intravenously every 5 months
omega 7-mpa-xsw-fish oil [Fish Oil] 1,200 (144-216) mg Capsule
1 cap PO BID
cholecalciferol (vitamin D3) [Vitamin D3] 25 mcg (1,000 unit) Tablet
25 mcg PO DAILY
Xiidra 5 % Dropperette
1 drp BOTH EYES BID
amiodarone 200 mg tablet
200 mg PO DAILY
tamsulosin 0.4 mg Capsule
0.8 mg PO HS
potassium 99 mg Tablet
99 mg PO DAILY
docusate sodium [Colace] 100 mg Capsule
200 mg PO BID
melatonin 10 mg Tablet
20 mg PO HS
atorvastatin 40 mg tablet
40 mg PO QPM
clopidogrel 75 mg tablet
75 mg PO DAILY
aspirin 81 mg tablet,chewable
81 mg PO DAILY
furosemide 20 mg tablet
60 mg PO BID AT 0800,1600
Eliquis 2.5 mg tablet
2.5 mg PO BID
Referrals:
UNKNOWN - PT DOES,NOT KNOW [Unknown Provider]
Interventions
Interventions:
*Risk Screen - Suicide Last Done: 10/26/25 16:28
*General Assessment Last Done: 10/26/25 16:35
*Neglect/Abuse Screening Last Done: 10/26/25 16:35
*ED COVID-19 Vaccine History Last Done: 10/26/25 17:27
*ED Influenza Vaccine History Last Done: 10/26/25 17:27
[facility] Fall Risk Assessment Tool Last Done: 10/26/25 17:27
ED- Cardiac Assessment Last Done: 10/26/25 17:27
ED- Neurological Assessment Last Done: 10/26/25 17:27
ED- Pulmonary Assessment Last Done: 10/26/25 17:27
Discharge Date and Time
Print Language: MACEDONIAN
[2025-10-26 17:52] LABS: Hematocrit 32.3 % (39.0-52.0); Hemoglobin 10.2 g/dL (13.0-18.0); Mean Corp Hgb Conc. 31.6 g/dL (33.0-37.0); Mean Corpuscular Volume 89.2 fL (80.0-94.0); Nucleated Red Blood Cells % 0 % (-); Platelet Count 132 10^3/uL (130-400); Red Cell Dist. Width 14.6 % (11.5-14.5)
[2025-10-26 18:02] LABS: ALT (SGPT) 39 U/L (0-50); AST (SGOT) 58 U/L (17-59); Albumin 3.8 g/dl (3.5-5.0); Alkaline Phosphatase 74 U/L (38-126); Blood Urea Nitrogen 67 mg/dl (9-20); Calcium 8.7 mg/dl (8.4-10.2); Carbon Dioxide 29 mmol/L (22-30); Chloride 95 mmol/L (98-107); Estimated Creatinine Clearance 30 ml/min; Glucose 112 mg/dl (70-99); Lipase 93 U/L (23-300); Potassium 4.4 mmol/L (3.5-5.1); Sodium 131 mmol/L (135-145); Total Protein 6.6 g/dl (6.3-8.2); eGFR 40.93
[2025-10-26 18:52] LABS: Urine Character Clear (Clear)
[2025-10-26] MEDS: LASIX 20 MG IV (18:57)
[2025-10-26 18:59] LABS: Urine Squamous Cell 0-2 /LPF (Few)
[2025-10-26 19:00] LABS: Urine Red Blood Cell 16-20 /HPF (0-2); Urine White Cell 0-2 /HPF (0-5)
--- NOTE | 2025-10-26 19:52 | HPS.HSE ---
Family Physician
-
Family Physician: Joseph Osman
Chief Complaint
-
Fatigue, SOB
History of Present Illness
Patient is an 89y M with PMH significant for ASCVD, severe aortic stenosis, HFrEF and recent admission for CHF who presents to ED complaining of fatigue and dyspnea. Patient was most recently admitted to from 10/20 - 10/23 for similar
symptoms. He was treated with IV diuresis - though diuresis was limited somewhat by renal impairment / MICHAEL. He had previously been scheduled for TAVR on 11/12 and this was moved up to 10/29.
Patient was discharged on 10/23 on Lasix 60mg BID. He states that he felt fairly well for a few days; however, his symptoms then quickly returned.
He has noted gradual decline in urine output - despite compliance with Lasix. He has noted progressive fatigue > dyspnea.
He appreciates significant edema / swelling - mostly in the abdomen / buttocks / thighs as he spends much of his day in a recliner with his feet up.
His weight has 'trickled' up from 151 at discharge to 153 earlier today - though his family notes that his weight several months ago was in the 130s.
Patient denies any chest pain or palpitations.
Medical History
Past Medical History
Past Medical History: Reports Other
Additional Past Medical History:
ASCVD
Paroxysmal Atrial Fibrillation
Chronic HFrEF
Severe Aortic Stenosis
Moderate Mitral Regurgitation
Moderate - Severe Tricuspid Regurgitation
Severe Pulmonary Hypertension
Chronic Iron Deficiency Anemia
Rheumatoid Arthritis
Collagenous Colitis
BPH
Past Surgical History: Reports Other
Additional Past Surgical History:
PTCA with LAD Stent (10/09/25)
Right KISHAN
Carpal Tunnel Surgery
T&A
Social History
Tobacco: Former Smoker (Quit smoking in the 1950s.)
Alcohol: Occasional
Drug: None
Family History
Family History: Other (Father: CAD Mother: RA)
Allergies / Home Medications
Allergies reflects when Allergies were last updated in [employer].
Home Medications with original date entered in [employer]
Allergy/Medication List:
Allergies
Allergy/AdvReac Type Severity Reaction Status Date / Time
penicillin G Allergy CHILDHOOD Verified 10/26/25 16:34
Penicillins Allergy CHILDHOOD Verified 10/26/25 16:34
Sulfa (Sulfonamide Allergy Anaphylaxis Verified 10/26/25 16:34
Antibiotics)
sulfamethoxazole Allergy Anaphylaxis Verified 10/26/25 16:34
trimethoprim Allergy Anaphylaxis Verified 10/26/25 16:34
Home Medications
acetaminophen 650 mg tablet,extended release 1,300 mg PO Q8HPRN PRN mild pain 08/19/25
alendronate 35 mg tablet 35 mg PO SA osteoporosis 08/19/25
budesonide 3 mg capsule,delayed,extended release 3 mg PO DAILY Anti-Inflammatory 08/19/25
hydroxychloroquine 200 mg tablet (Plaquenil) 200 mg PO DAILY rheumatoid arthritis 08/19/25
omega 7-eqs-aek-fish oil 1,200 mg (144 mg-216 mg) capsule (Fish Oil) 1 cap PO BID Supplement 08/19/25
rituximab 10 mg/mL concentrate,intravenous (Rituxan) See Rx Instructions .Route .COMPLEX RA 08/19/25
therapeutic multivitamin 1 tab PO DAILY Supplement 08/19/25
cholecalciferol (vitamin D3) 25 mcg (1,000 unit) tablet (Vitamin D3) 25 mcg PO DAILY Supplement 09/01/25
lifitegrast 5 % eye drops in a dropperette (Xiidra) 1 drp BOTH EYES BID Eye Condition 09/01/25
amiodarone 200 mg tablet 200 mg PO DAILY Heart Disease/Condition 10/02/25
tamsulosin 0.4 mg capsule 0.8 mg PO HS Urinary Issue 10/09/25
potassium 99 mg tablet 99 mg PO DAILY Supplement 10/20/25
apixaban 2.5 mg tablet (Eliquis) 2.5 mg PO BID Blood Clot Prevention/Tx 12/01/25
aspirin 81 mg chewable tablet 81 mg PO DAILY Heart Disease/Condition 10/26/25
atorvastatin 40 mg tablet 40 mg PO QPM High Cholesterol 10/26/25
clopidogrel 75 mg tablet 75 mg PO DAILY Blood Clot Prevention/Tx 10/26/25
docusate sodium 100 mg capsule (Colace) 200 mg PO BID Constipation 10/26/25
furosemide 20 mg tablet 60 mg PO BID AT 0800,1600 Fluid Retention/Swelling 10/26/25
melatonin 10 mg tablet 20 mg PO HS Sleep 10/26/25
Review of Systems
-
History Source: Patient
A 12 point ROS was completed and negative except as noted: Yes
Constitutional: Reports Weight Gain (2 lbs) and Fatigue; Denies Fever
EENT: Denies Sore Throat
Respiratory: Reports Cough and Trouble Breathing; Denies Hemoptysis
Cardiac: Denies Chest Pain, Diaphoresis, Palpitations or Syncope
Abdomen/GI: Reports Nausea and Anorexia; Denies Abdominal Pain, Vomiting or Diarrhea
: Reports Other (Decreased urination.); Denies Dysuria, Frequency, Flank Pain or Difficulty Voiding
Musculoskeletal: Reports Edema (dependent edema in abdomen / groin area.); Denies Joint Pain
Neurological: Denies Dizzy or Headache
Physical Exam
Vital Signs
Vital Signs
Temp Pulse Resp BP Pulse Ox
98.1 F 96 20 91/60 98
10/26/25 16:35 10/26/25 18:57 10/26/25 18:45 10/26/25 18:57 10/26/25 17:45
Physical Exam
General: Other (89y M in no acute distress.)
HEENT: Other (Dry MM. Pos JVD.)
Respiratory: Other (Decreased BS at bases - R > L. Pos bibasilar rales. No wheezing.)
Cardiac: S1/S2, Irregular Rhythm and Murmur (III/ ROSA)
GI: Soft, Non Tender, Non Distended, Normal Bowel Sounds and Other (Pitting edema of lower abdominal wall, buttocks, proximal thighs / perineal area.)
Musculoskeletal: No Clubbing, No Cyanosis and Other (LE edema - but most edema in dependent areas / buttocks, etc as noted above.)
Neuro: AO x 3
Laboratory Results
-
10/26/25 17:39
10/26/25 17:38
Laboratory Results
Total Bilirubin 0.8 mg/dl (0.2-1.3) 10/26/25 17:38
AST 58 U/L (17-59) 10/26/25 17:38
ALT 39 U/L (0-50) 10/26/25 17:38
Alkaline Phosphatase 74 U/L (38-126) 10/26/25 17:38
Lipase 93 U/L (23-300) 10/26/25 17:38
Impression/Plan
-
A/P: Patient is an 89y M with PMH significant for ASCVD, CHF, severe aortic stenosis and RA who presents to ED complaining of progressive fatigue and dyspnea since recent discharge.
Acute on Chronic HFrEF
Severe Aortic Stenosis
Moderate Mitral Regurgitation
Moderate - Severe Tricuspid Regurgitation
Severe Pulmonary Hypertension
- Admit for further evaluation and treatment.
- Significant dependent edema on exam but only minimal weight gain from recent discharge.
- Diuresis limited by cardiorenal syndrome during prior admission.
- IV Lasix daily for now.
- Cardiology evaluation for additional recommendations.
- CT Surgery evaluation for additional recommendations.
- TAVR is tentatively scheduled for 10/29.
- Echo was done 10/21 with LVEF = 23% and valvular pathology as noted above. No need to repeat.
ASCVD
- s/p LAD stent on 10/09. Continue DAPT.
- Continue statin therapy.
- No chest pain at present.
- Cardio eval as noted above.
Paroxysmal Atrial Fibrillation / Flutter
- New diagnosis as of 08/19/25.
- Remains in flutter with variable AV block at present.
- Continue current medications including amiodarone and Eliquis.
- Cardiology evaluation as noted above.
MICHAEL / Cardiorenal Syndrome
- Likely secondary to CHF / severe .
- SCr = 1.6 compared to prior baseline of 1.1 and recent discharge value of 1.3.
- Diuresis efforts limited by progressive renal impairment.
- Hopefully hemodynamics will improve s/p TAVR allowing for more effective / tolerated diuresis.
- Follow SCr for changes.
Chronic Iron Deficiency Anemia
- Stable. Hgb is at / near known baseline.
- Prior iron studies reflect deficiency. Will update.
- Replace iron if indicated. Follow H&H for changes.
Rheumatoid Arthritis
- Stable. Continue Plaquenil.
Collagenous Colitis
- Stable. Continue budesonide.
Chronic Constipation
- Continue bowel regimen. Miralax PRN.
BPH
- Stable. Continue tamsulosin.
- Bladder scan protocol.
Chronic Insomnia
- Continue melatonin.
DVT Prophylaxis: On Eliquis
Code Status: Full
[2025-10-27] VITALS (20 sets, daily range): BP systolic 75–106; BP diastolic 52–84; PULSE 93–117; O2SAT 98; BMI 23.0
--- NOTE | 2025-10-27 01:00 | PTCARENOTE ---
Pt arrived to floor via stretcher from the ED. Pt reports feeling too tired and weak to stand up at this time. Pt pulled over from stretcher to bed. Pt AAOx3, but forgetful at times. HR in the 90's in NSR with PVC's on the monitor, with episodes of
PAF low 100's. POX 94% on RA. Lungs dec @ bases. Pt with occasional moist productive cough. + bowel. Pt using urinal independently as needed. B/L LE with dressing in place, Legs red, dry, yellow flakey skin, dressing removed, new dressing applied,
see JAN. Doppler pulses present. Legs elevated on pillows. B/L UE ecchymosis noted. +2 generalized anasarca present, especially in the trunk area. Pt complains of sacral discomfort from laying on stretcher in ED for a period of time. Stage 1 noted
to sacrum, foam dressing applied. Pt repositioned with pillow. Left AC int capped. No other issues to report at this time. Vital signs stable. Call kurtz in reach. WIll continue to monitor.
[2025-10-27] MEDS: ELIQUIS PO ×2 (01:13→01:18)
[2025-10-27] MEDS: FLOMAX 0.8 MG PO ×2 (01:14→22:16)
[2025-10-27] MEDS: COLACE 200 MG PO ×3 (01:14→22:16)
[2025-10-27 01:35] LABS: Iron 27 ug/dl (49-181)
[2025-10-27 01:44] LABS: Total Iron Binding Capacity 357 ug/dl (261-462)
[2025-10-27 02:11] LABS: Ferritin 54.9 ng/ml (17.9-464.0)
[2025-10-27 02:54] LABS: Troponin I 0.080 ng/ml
[2025-10-27 05:45] LABS: Hematocrit 29.5 % (39.0-52.0); Hemoglobin 9.5 g/dL (13.0-18.0); Mean Corp Hgb Conc. 32.2 g/dL (33.0-37.0); Mean Corpuscular Volume 88.9 fL (80.0-94.0); Platelet Count 101 10^3/uL (130-400); Red Cell Dist. Width 14.6 % (11.5-14.5)
[2025-10-27 05:57] LABS: Blood Urea Nitrogen 60 mg/dl (9-20); Calcium 8.5 mg/dl (8.4-10.2); Carbon Dioxide 28 mmol/L (22-30); Chloride 99 mmol/L (98-107); Estimated Creatinine Clearance 32 ml/min; Glucose 110 mg/dl (70-99); Potassium 3.8 mmol/L (3.5-5.1); Sodium 134 mmol/L (135-145); eGFR 44.23
[2025-10-27 06:14] LABS: Troponin I 0.080 ng/ml
--- NOTE | 2025-10-27 07:44 | CON.CAR ---
Addendum entered and electronically signed by Girish Huntley MD 10/27/25 10:36:
I saw and examined the patient.
The SANITATION ENGINEER or PA's note was reviewed and I agree with the note.
Comment: General: Well developed, well nourished in NAD.
Neck: Supple, no JVD, HJR, carotids +2 B/L, no bruits bilaterally.
Heart: Non displaced PMI, irregular, 2/6 basal systolic murmur, No S3, S4, no rubs.
Lungs: Scattered rhonchi
Extremities: No clubbing, cyanosis or edema bilaterally.
Neuro: Grossly nonfocal, awake, alert and oriented x3.
Patient has a history of severe aortic stenosis as well as CAD status post LAD and circumflex stenting, cardiomyopathy ejection fraction 20 to 25% as well as reduced RV systolic function, chronic systolic CHF, persistent A-fib since July 2025
on Eliquis, rheumatoid arthritis. He presents with worsening shortness of breath and decreased urine output as well as worsening fatigue. He had been admitted a week ago with CHF.
Will continue diuresis and follow renal function closely. He is for TAVR on 10/29.
Original Note:
Consultation
Consultation Request
Date/Time Consultation Performed: 10/27/25
Requesting Provider: Dr. Randolph
Performing Provider: Estefany Winters PA-C for Dr. Huntley
Reason for Consultation: CHF, severe
Medical History
-
Chief Complaint: SOB, decreased urine output
History of Present Illness:
Patient with known severe , initially scheduled for TAVR 11/12/2025, pushed up to 10/29/25 due to admission 10/20-10/23/25 for acute CHF presents back to ER due to worsening lower extremity edema and decreased response to lasix. He was discharged
on po lasix 60mg BID and reports noted decreased urination despite lasix for the last several days with 2 pound weight gain and worsening ankle edema. Cr was 1.7 on arrival. proBNP 7620.
PMH:
Low flow-Severe with mean gradient 35 mmHg by echo 06/26/2025, planned TAVR 10/29/25
Elective cardiac catheterization for PCI LAD and circumflex 10/09/[address] Gutierrez, radial approach
Successful stenting of the mid LAD with a 3.0 x 34 mm [place] stent that was postdilated to high-pressure's with a 3.5 mm noncompliant balloon. Successful stenting of the circumflex extending into a terminal obtuse marginal branch. SHOCKWAVE
lithotripsy was performed with a 3.0 x 12 mm balloon and was followed by placement of a 3.0 x 15 mm [place] stent that was implanted at nominal pressures and postdilated with a 3.25 mm noncompliant balloon
Biventricular cardiomyopathy with reduced ejection fraction, valvular and ischemic.
EF 20-25% with dilated RV and reduced RV systolic function 07/2025
Recent heart failure admissions July 2025, September 2025
Atrial fibrillation, new diagnosis 08/19/2025, persistent
Eliquis anticoagulation
Left bundle branch block
PAD, suspected
Venous stasis dermatitis/ venous stasis
Hyperlipidemia
Rheumatoid arthritis, on Rituxan and hydroxychloroquine
Chronic anemia
Gait dysfunction
Past Medical History
Past Medical History: Other (in HPI)
Past Surgical History: Orthopedic (right KISHAN) and Tonsilectomy
Social History
Tobacco: Former Smoker
Alcohol: Occasional
Drug: None
Personal: (his just )
Living: Alone (but his son and daughter stop by to check on him daily)
Family History
Family History: CAD and Other (RA)
Allergies / Home Medications
Allergy/AdvReac Type Severity Reaction Status Date / Time
penicillin G Allergy CHILDHOOD Verified 10/26/25 16:34
Penicillins Allergy CHILDHOOD Verified 10/26/25 16:34
Sulfa (Sulfonamide Allergy Anaphylaxis Verified 10/26/25 16:34
Antibiotics)
sulfamethoxazole Allergy Anaphylaxis Verified 10/26/25 16:34
trimethoprim Allergy Anaphylaxis Verified 10/26/25 16:34
�Medication �Instructions �Recorded �Confirmed �Type
acetaminophen 650 mg 1,300 mg PO Q8HPRN PRN mild pain 08/19/25 10/26/25 History
tablet,extended release
alendronate 35 mg tablet 35 mg PO SA osteoporosis 08/19/25 10/26/25 History
budesonide 3 mg 3 mg PO DAILY Anti-Inflammatory 08/19/25 10/26/25 History
capsule,delayed,extended release
hydroxychloroquine 200 mg tablet 200 mg PO DAILY rheumatoid 08/19/25 10/26/25 History
(Plaquenil) arthritis
omega 9-sha-cxo-fish oil 1,200 mg 1 cap PO BID Supplement 08/19/25 10/26/25 History
(144 mg-216 mg) capsule (Fish Oil)
rituximab 10 mg/mL See Rx Instructions .Route 08/19/25 10/26/25 History
concentrate,intravenous (Rituxan) .COMPLEX RA
therapeutic multivitamin 1 tab PO DAILY Supplement 08/19/25 10/26/25 History
cholecalciferol (vitamin D3) 25 25 mcg PO DAILY Supplement 09/01/25 10/26/25 History
mcg (1,000 unit) tablet (Vitamin
D3)
lifitegrast 5 % eye drops in a 1 drp BOTH EYES BID Eye Condition 09/01/25 10/26/25 History
dropperette (Xiidra)
amiodarone 200 mg tablet 200 mg PO DAILY Heart 10/02/25 10/26/25 History
Disease/Condition
tamsulosin 0.4 mg capsule 0.8 mg PO HS Urinary Issue 10/09/25 10/26/25 History
potassium 99 mg tablet 99 mg PO DAILY Supplement 10/20/25 10/26/25 History
apixaban 2.5 mg tablet (Eliquis) 2.5 mg PO BID Blood Clot 10/26/25 10/26/25 History
Prevention/Tx
aspirin 81 mg chewable tablet 81 mg PO DAILY Heart 10/26/25 10/26/25 History
Disease/Condition
atorvastatin 40 mg tablet 40 mg PO QPM High Cholesterol 10/26/25 10/26/25 History
clopidogrel 75 mg tablet 75 mg PO DAILY Blood Clot 10/26/25 10/26/25 History
Prevention/Tx
docusate sodium 100 mg capsule 200 mg PO BID Constipation 10/26/25 10/26/25 History
(Colace)
furosemide 20 mg tablet 60 mg PO BID AT 0800,1600 Fluid 10/26/25 10/26/25 History
Retention/Swelling
melatonin 10 mg tablet 20 mg PO HS Sleep 10/26/25 10/26/25 History
Review of Systems
-
History Source: Patient
All other systems: Negative unless noted
Physical Exam
Vital Signs
Temp Pulse Resp BP Pulse Ox
97.7 F 95 20 101/60 93
10/27/25 05:00 10/27/25 05:00 10/27/25 05:12 10/27/25 05:00 10/27/25 05:12
Lab Results
10/27/25 05:10
10/27/25 05:11
Troponin I 0.080 ng/ml H* 10/27/25 05:10
Tab-B-Vzeorqyfljl Pept 7620 pg/ml 10/26/25 17:38
Physical Exam
General: No Apparent Distress and Comfortable
HEENT: Normocephalic, Anicteric and Moist Mucous Membranes
Respiratory: Crackles and Non Labored Respirations
Cardiac: S1/S2, Irregular Rhythm and Murmur
GI: Soft, Non Tender, Non Distended and Normal Bowel Sounds
Musculoskeletal: No Clubbing, No Cyanosis and Edema (2+ of B/L LE with dressings in place B/L)
Skin: Warm and Dry
Neuro: AO x 3
Impression / Plan
-
.
PCP: Dr. Osman
Cardiology: Dr. Huntley
Impression:
Presentation with SOB
Acute on chronic HFrEF
Elevated troponin, suspected nonischemic myocardial injury
Low flow-Severe with mean gradient 35 mmHg by echo 06/26/2025, planned TAVR 10/29/25
Elective cardiac catheterization for PCI LAD and circumflex 10/09/[address] Gutierrez, radial approach
Successful stenting of the mid LAD with a 3.0 x 34 mm [place] stent that was postdilated to high-pressure's with a 3.5 mm noncompliant balloon. Successful stenting of the circumflex extending into a terminal obtuse marginal branch. SHOCKWAVE
lithotripsy was performed with a 3.0 x 12 mm balloon and was followed by placement of a 3.0 x 15 mm [place] stent that was implanted at nominal pressures and postdilated with a 3.25 mm noncompliant balloon
Biventricular cardiomyopathy with reduced ejection fraction, valvular and ischemic.
EF 20-25% with dilated RV and reduced RV systolic function 07/2025
Recent heart failure admission July 2025, September 2025
Atrial fibrillation, new diagnosis 08/19/2025
Eliquis anticoagulation
Left bundle branch block
PAD, suspected
Venous stasis dermatitis/ venous stasis
Hyperlipidemia
Rheumatoid arthritis, on Rituxan and hydroxychloroquine
Chronic anemia
Gait dysfunction
Echo 06/26/2025: EF 50%, severe with peak/mean 64/35 mmHg, mild to moderate MR, mild to moderate TR with PAP 54 mmHg
Echo 08/20/2025: EF 20 to 25% with global hypokinesis. Dilated right ventricle with mildly reduced RV systolic function. By atrial dilation. Heavily calcified aortic valve with reduced leaflet excursion.
Echo Oct 21 2025: Severely reduced left ventricular systolic function with estimated LVEF of 23% by Almeida's method. Dilated right ventricle with mildly reduced RV function. Severely dilated left atrium. Moderately dilated right atrium. Severe
aortic valve leaflet thickening with severe low-flow low gradient aortic stenosis in the setting of a severely reduced ejection fraction. Estimated peak and mean trans aortic gradients of 35 and 22 mmHg, respectively. Trace aortic regurgitation..
Moderate mitral valve regurgitation. Moderate to severe tricuspid regurgitation with severe pulmonary hypertension. Estimated pulmonary artery systolic pressure of 68 mmHg, assuming a right atrial pressure of 15 mmHg. Small pericardial effusion is
present. Moderate size pleural effusion is present., last EF Jul 2025 20-25%.
Plan:
-Patient was discharged 10/23 after admission for CHF and is planned for TAVR 10/29/25. presents back with decreased urine output, LE edema, and 2 pound weight gain
-CXR with interstitial pulm edema and small to mod B/L effusions.
-proBNP 7620
-Cr downtrending, 1.5 on 10/27. will increase IV lasix to 40mg BID. patient reports good response to IV lasix given in ER. he was on po lasix 60mg BID prior to admission. Had good response to metolazone in past
-plan for TAVR 10/29
-remains in rate controlled afib. continue amiodarone 200mg daily. uptitration of BB has been limited by hypotension
-hold eliquis as of 12/2 PM dose. continue plavix given recent PCI. hgb 9.5
-trop mildly elevated but flat in 0.08 range. suspected nonischemic myocardial injury secondary to above. no CP
-cancelled appt in office scheduled for today as admitted
-d/w nursing
Data Reviewed
-
EKG: Tracing Personally Visualized and interpreted
Radiology: Report Reviewed by me
Medical Tests (Nuc Med, Echo etc): Report Reviewed by me
Labs: Labs Reviewed by me
Old Records: Reviewed
--- NOTE | 2025-10-27 08:00 | PTCARENOTE ---
Assumed care of pt from prev nsg shift; Pt AAOX3 w/no c/o CP. Pt does report SOB w/activity. Pt advised to call for nursing staff if he needs to get up. Pt also advised to rest as needed. PT/OT to see pt this AM. Pt's VSS w/HR in the 90's & BP
102/67 this AM. Pt is Sr w/freq PVC's & occas Afib/Aflutter on telemetry monitoring. Pt advised of 1440 mL daily fluid restriction. Pt w/call kurtz within reach & plan of care ongoing.
--- NOTE | 2025-10-27 08:06 | W.PN.HOSP.TC ---
Today's Communication/Plan
-
See plan
Assessment / Plan
Assessment / Plan
Physical Exam
General: Other (89y M in no acute distress.)
HEENT: Other (Dry MM. Pos JVD.)
Respiratory: Other (Decreased BS at bases - R > L. Pos bibasilar rales. No wheezing.)
Cardiac: S1/S2, Irregular Rhythm and Murmur (III/ ROSA)
GI: Soft, Non Tender, Non Distended, Normal Bowel Sounds and Other (Pitting edema of lower abdominal wall, buttocks, proximal thighs / perineal area.)
Musculoskeletal: No Clubbing, No Cyanosis and Other (LE edema - but most edema in dependent areas / buttocks, etc as noted above.)
Neuro: AO x 3
Assessment/Plan
89 y/o male with past medical history significant for ASCVD, severe aortic stenosis, HFrEF and recent admission for CHF who presented to [facility] ED complaining of fatigue and dyspnea. Patient was most recently admitted to from 10/20/25 - 10/23/25
for similar symptoms. He was treated with IV diuresis - though diuresis was limited somewhat by renal impairment / MICHAEL. He had previously been scheduled for TAVR on 11/12/25 and this was moved up to 10/29/25. Patient was discharged on 10/23/25 on
Lasix 60mg BID. He stated that he felt fairly well for a few days; however, his symptoms then quickly returned. He had been noticing gradual decline in urine output - despite compliance with Lasix. He had noted progressive fatigue > dyspnea. He
appreciated significant edema / swelling - mostly in the abdomen / buttocks / thighs as he spends much of his day in a recliner with his feet up.
His weight has 'trickled' up from 151 at discharge to 153 earlier on 10/26/25 - though his family noted that his weight several months ago was in the 130s. At the time of admission, patient denied any chest pain or palpitations.
Presentation with worsening shortness of breath, fatigue and decreased urine output, significant dependent edema (mostly in abdomen / buttocks / thighs)
Acute on Chronic HFrEF
Severe Aortic Stenosis
Moderate Mitral Regurgitation
Moderate - Severe Tricuspid Regurgitation
Severe Pulmonary Hypertension
- Significant dependent edema on exam but only minimal weight gain from recent discharge.
- Diuresis limited by cardiorenal syndrome during prior admission.
- Continue IV Lasix 40 mg BID
- Cardiology evaluation for additional recommendations.
- CT Surgery evaluation for additional recommendations.
- TAVR is tentatively scheduled for 10/29/25.
- Echo was done 10/21 with LVEF = 23% and valvular pathology as noted above. No need to repeat.
Atherosclerotic Cardiovascular Disease
- s/p LAD stent on 10/09. Continue DAPT.
- Continue statin therapy.
- No chest pain at present.
- Cardio eval as noted above.
Persistent Atrial Fibrillation / Flutter
- New diagnosis as of 08/19/25.
- Remains in flutter with variable AV block at present.
- Continue current medications including amiodarone
- Hold Eliquis in preparation for TAVR
- Cardiology evaluation as noted above.
MICHAEL / Cardiorenal Syndrome
- Likely secondary to CHF / severe .
- SCr = 1.6---->1.5 compared to prior baseline of 1.1 and recent discharge value of 1.3.
- Diuresis efforts limited by progressive renal impairment.
- Hopefully hemodynamics will improve s/p TAVR allowing for more effective / tolerated diuresis.
- Follow SCr for changes.
Orthostatic Hypotension
Chronic Iron Deficiency Anemia
- Stable. Hgb is at / near known baseline.
- Prior iron studies reflect deficiency. Will update.
- Replace iron if indicated. Follow H&H for changes.
Rheumatoid Arthritis
- Stable. Continue Plaquenil.
Collagenous Colitis
- Stable. Continue budesonide.
Chronic Constipation
- Continue bowel regimen. Miralax PRN.
BPH
- Stable. Continue tamsulosin.
- Bladder scan protocol.
Chronic Insomnia
- Continue melatonin.
DVT Prophylaxis: On Eliquis
Code Status: Full
Anticipated Discharge: > 48 hours
Subjective/Interval History
-
Date of Service: October 27, 2025
Patient was seen and examined. He reported that he was feeling okay today, no shortness of breath at rest.
Objective Data
-
Labs:
Laboratory Results
10/26/25 10/27/25 10/27/25
17:38 05:10 05:11
WBC 8.0
Hgb 9.5 L
Hct 29.5 L
Plt Count 101 L D
Sodium 134 L
Potassium 4.4 3.8
Chloride 99
Carbon Dioxide 28
BUN 60 H
Creatinine 1.5 H
Glucose 110 H
Calcium 8.5
Vital Signs:
Vital Signs
Temp Pulse Resp BP Pulse Ox
97.6 F 94 18 101/60 93
10/27/25 07:00 10/27/25 07:00 10/27/25 07:00 10/27/25 05:00 10/27/25 07:00
I&O
10/26/25 10/27/25 10/28/25
06:59 06:59 06:59
Intake Total 480 / 480
Balance 480 / 480
--- NOTE | 2025-10-27 09:08 | VNURNOTE ---
Chart reviewed.� Patient is current with [facility] nursing.� Will continue to follow hospital course and DC plans.
[2025-10-27] MEDS: LOW STRENGTH ASPIRIN 81 MG PO (10:09)
[2025-10-27] MEDS: ENTOCORT EC 3 MG PO (10:09)
[2025-10-27] MEDS: ELIQUIS 2.5 MG PO (10:09)
[2025-10-27] MEDS: PACERONE 200 MG PO (10:10)
[2025-10-27] MEDS: LASIX 40 MG IV ×2 (10:10→17:17)
[2025-10-27] MEDS: FLUSH (NSS) 2 FLUSH IV (10:10)
[2025-10-27] MEDS: PLAVIX 75 MG PO (10:11)
[2025-10-27] MEDS: PLAQUENIL 200 MG PO (10:11)
--- NOTE | 2025-10-27 13:38 | CM ---
spoke to pt and daughter in room, he is prev indep, lives alone in a 2 story home with a first floor set up and 2 step to enter. his daughter is closeby and supportive. s plan is for TAVR, 10/29. preop educ done last admission. he was current with
[facility] for LE wound care 3 x wk. we discussed the possiblity of him needing to go to rehab after the TAVR, explained that we will f/u with PT/OT to eval. cm following for any needs that may arise.
[2025-10-27] MEDS: FERRLECIT 110 MG IV (17:17)
[2025-10-27] MEDS: FLUSH (NSS) 3 FLUSH IV (17:17)
[2025-10-27] MEDS: LIPITOR 40 MG PO (17:18)
[2025-10-27] MEDS: MYLICON 80 MG PO (19:49)
[2025-10-27] MEDS: TUMS CHEWABLE TABLET 200 MG PO (19:49)
[2025-10-27] MEDS: TYLENOL 650 MG PO (22:17)
[2025-10-27] MEDS: MELATONIN 20 MG PO (22:17)
[2025-10-28] VITALS (20 sets, daily range): BP systolic 74–167; BP diastolic 53–150; PULSE 92–95; O2SAT 98; BMI 22.9
[2025-10-28 04:18] LABS: Hematocrit 29.1 % (39.0-52.0); Hemoglobin 9.4 g/dL (13.0-18.0); Mean Corp Hgb Conc. 32.3 g/dL (33.0-37.0); Mean Corpuscular Volume 89.3 fL (80.0-94.0); Platelet Count 110 10^3/uL (130-400); Red Cell Dist. Width 14.6 % (11.5-14.5)
[2025-10-28 04:29] LABS: Blood Urea Nitrogen 62 mg/dl (9-20); Calcium 8.7 mg/dl (8.4-10.2); Carbon Dioxide 29 mmol/L (22-30); Chloride 99 mmol/L (98-107); Estimated Creatinine Clearance 32 ml/min; Glucose 112 mg/dl (70-99); Magnesium 2.2 mg/dl (1.6-2.3); Potassium 3.7 mmol/L (3.5-5.1); Sodium 133 mmol/L (135-145); eGFR 44.23
--- NOTE | 2025-10-28 05:31 | PTCARENOTE ---
Pt. had no complaints chest discomfort / SOB overnight, VSS, A-fib /flutter (rate to 110's with activity) on the monitor. At beginning of shift complained of upset stomach - indigestion - orders for TUMS & Mylicon obtained and given, pt. stated
they completely alleviated his discomfort. Slept most of the night.
--- NOTE | 2025-10-28 08:00 | PTCARENOTE ---
Assumed care of pt from prev nsg shift; Pt AAOX3 w/no c/o CP. Pt does report SOB w/activity. Pt advised to call for nursing staff if he needs to get up. Pt also advised to rest as needed. Pt's VSS w/HR in the 90's-110's & BP 96/66 this AM. Pt is
SR/ST w/freq PVC's & occas Afib/Aflutter on telemetry monitoring. Discussed again pt's 1440 mL daily fluid restriction. Pt w/call kurtz within reach & plan of care ongoing.
--- NOTE | 2025-10-28 08:14 | PN.CDI ---
CDI
- -
CDI:
Physician Documentation Request
Admit Date: 10/26/25 20:05
Dear Doctor Dale,
Please review the following and provide your response in the progress notes.
Clinical Indicators:
Laboratory Tests
10/26/25 10/27/25 10/28/25
17:38 05:11 03:53
Sodium 131 L 134 L 133 L
Based on the above and your clinical assessment, please clarify in the progress notes, the appropriate diagnosis, if significant, that supports the above abnormalities and additional evaluation, monitoring and/or treatment rendered:
Hyponatremia
Abnormal lab value, clinically insignificant
Other(please specify)
Use of terms such as suspected, likely, concern for, or probable (associated with a specific diagnosis that is being evaluated, monitored, or treated as if it exists) are acceptable and can be coded in the inpatient setting, when documented at the
time of discharge.
Thank you,
Susy Barber RN BSN CCDS
CDI Specialist
Please contact via tiger text
Please use your independent medical judgment in providing your response.
--- NOTE | 2025-10-28 08:23 | PN.CDI ---
CDI
- -
CDI:
Physician Documentation Request
Admit Date: 10/26/25 20:05
Dear Doctor Dale
Please review the following and provide your response in the progress notes.
Clinical Indicators:
10/27/25 01:00 (created 10/27/25 03:17) - Patient Care Note
#...B/L UE ecchymosis noted. +2 generalized anasarca present, especially in the trunk area.
#...Stage 1 noted to sacrum, foam dressing applied.
Selected Entries
10/27/25
01:55
Pressure injury stage [Present on admission Sacrum] Stage 1
Physician documentation of the type and location of wounds is required for compliant documentation. Based on the above clinical findings and your assessment, please provide the following in your progress note:
Yes, sacrum stage 1 pressure injury, POA
No, sacrum stage 1 pressure injury
Other (please specify)
1. Location of the ulcer/wound, including laterality.
2. Type (etiology) of ulcer/wound:
- Diabetic ulcer
- Arterial (ischemic) ulcer
- Traumatic wound
- Venous stasis ulcer
- Pressure (decubitus) ulcer
3. For a pressure ulcer, please also include the stage* of the ulcer:
- Stage 1 - Skin intact, non-blanchable redness
- Stage 2 - Partial thickness loss of dermis, includes intact or open blister
- Stage 3 - Full thickness tissue not including bone, tendon or muscle
- Stage 4 - Full thickness tissue loss, including exposed bone, tendon or muscle
- Unstageable - Full thickness loss in which the base of the ulcer is covered by slough (yellow, larsen, banks, green or brown) and/or eschar (larsen, brown or black) in the wound bed.
- Unable to determine
Use of terms such as suspected, likely, concern for, or probable (associated with a specific diagnosis that is being evaluated, monitored, or treated as if it exists) are acceptable and can be coded in the inpatient setting, when documented at the
time of discharge.
Thank you,
Susy Barber RN BSN CCDS
CDI Specialist
Please contact via tiger text
Please use your independent medical judgment in providing your response.
*Source: National Pressure Ulcer Advisory Panel (NPUAP)
--- NOTE | 2025-10-28 08:27 | W.PN.HOSP.TC ---
Today's Communication/Plan
-
Stop IV Lasix
Continue IV iron
Tums prn for indigestion symptoms
For TAVR tomorrow
Assessment / Plan
Assessment / Plan
Physical Exam
General: Other (89y M in no acute distress.)
HEENT: Other (Dry MM. Pos JVD.)
Respiratory: Other (Decreased BS at bases - R > L. Pos bibasilar rales. No wheezing.)
Cardiac: S1/S2, Irregular Rhythm and Murmur (III/ ROSA)
GI: Soft, Non Tender, Non Distended, Normal Bowel Sounds and Other (Pitting edema of lower abdominal wall, buttocks, proximal thighs / perineal area.)
Musculoskeletal: No Cyanosis and Other (LE edema - but most edema in dependent areas / buttocks, etc as noted above.)
Neuro: AO x 3
Assessment/Plan
89 y/o male with past medical history significant for ASCVD, severe aortic stenosis, HFrEF and recent admission for CHF who presented to [facility] ED complaining of fatigue and dyspnea. Patient was most recently admitted to from 10/20/25 - 10/23/25
for similar symptoms. He was treated with IV diuresis - though diuresis was limited somewhat by renal impairment / MICHAEL. He had previously been scheduled for TAVR on 11/12/25 and this was moved up to 10/29/25. Patient was discharged on 10/23/25 on
Lasix 60mg BID. He stated that he felt fairly well for a few days; however, his symptoms then quickly returned. He had been noticing gradual decline in urine output - despite compliance with Lasix. He had noted progressive fatigue > dyspnea. He
appreciated significant edema / swelling - mostly in the abdomen / buttocks / thighs as he spends much of his day in a recliner with his feet up.
His weight has 'trickled' up from 151 at discharge to 153 earlier on 10/26/25 - though his family noted that his weight several months ago was in the 130s. At the time of admission, patient denied any chest pain or palpitations.
Presentation with worsening shortness of breath, fatigue and decreased urine output, significant dependent edema (mostly in abdomen / buttocks / thighs)
Acute on Chronic HFrEF
Severe Aortic Stenosis
Moderate Mitral Regurgitation
Moderate - Severe Tricuspid Regurgitation
Severe Pulmonary Hypertension
- Significant dependent edema on exam but only minimal weight gain from recent discharge.
- Diuresis limited by cardiorenal syndrome during prior admission.
- IV Lasix previously given, now stopped as patient appears to be getting more dry
- Cardiology evaluation for additional recommendations.
- CT Surgery evaluation for additional recommendations.
- TAVR is tentatively scheduled for 10/29/25.
- Echo was done 10/21 with LVEF = 23% and valvular pathology as noted above. No need to repeat.
Atherosclerotic Cardiovascular Disease
- s/p LAD stent on 10/09. Continue DAPT.
- Continue statin therapy.
- No chest pain at present.
- Cardio eval as noted above.
Persistent Atrial Fibrillation / Flutter
- New diagnosis as of 08/19/25.
- Remains in flutter with variable AV block at present.
- Continue current medications including amiodarone
- Hold Eliquis in preparation for TAVR
- Cardiology evaluation as noted above.
MICHAEL / Cardiorenal Syndrome
- Likely secondary to CHF / severe .
- SCr = 1.6---->1.5 compared to prior baseline of 1.1 and recent discharge value of 1.3.
- Diuresis efforts limited by progressive renal impairment.
- Hopefully hemodynamics will improve s/p TAVR allowing for more effective / tolerated diuresis.
- Follow SCr for changes.
Orthostatic Hypotension
Chronic Iron Deficiency Anemia
- Hgb stable
- Iron studies suggest iron deficiency anemia
- Intravenous iron ordered and started on 10/27/25
Indigestion Symptoms
- Tums prn ordered
Rheumatoid Arthritis
- Stable. Continue Plaquenil.
Collagenous Colitis
- Stable. Continue budesonide.
Chronic Constipation
- Continue bowel regimen. Miralax PRN.
BPH
- Stable. Continue tamsulosin.
- Bladder scan protocol.
Chronic Insomnia
- Continue melatonin.
DVT Prophylaxis: On Eliquis
Code Status: Full Code
Anticipated Discharge: > 48 hours
Subjective/Interval History
-
Date of Service: October 28, 2025
Patient was seen and examined. He had some indigestion symptoms, but otherwise denied any other new symptoms or complaints.
Objective Data
-
Labs:
Laboratory Results
10/28/25
03:53
WBC 8.8
Hgb 9.4 L
Hct 29.1 L
Plt Count 110 L
Sodium 133 L
Potassium 3.7
Chloride 99
Carbon Dioxide 29
BUN 62 H
Creatinine 1.5 H
Glucose 112 H
Calcium 8.7
Vital Signs:
Vital Signs
Temp Pulse Resp BP Pulse Ox
98 F 96 20 96/66 96
10/28/25 08:13 10/28/25 08:15 10/28/25 08:13 10/28/25 08:15 10/28/25 08:13
I&O
10/27/25 10/28/25 10/29/25
06:59 06:59 06:59
Intake Total 480 / 480 840 / 840
Output Total 700 / 700 225 / 225
Balance 480 / 480 140 / 140 -225 / -225
[2025-10-28] MEDS: COLACE 200 MG PO ×2 (09:26→20:33)
[2025-10-28] MEDS: ENTOCORT EC 3 MG PO (09:26)
[2025-10-28] MEDS: PLAQUENIL 200 MG PO (09:26)
[2025-10-28] MEDS: LOW STRENGTH ASPIRIN 81 MG PO (09:26)
[2025-10-28] MEDS: LASIX 40 MG IV (09:27)
[2025-10-28] MEDS: PLAVIX 75 MG PO (09:27)
[2025-10-28] MEDS: PACERONE 200 MG PO (09:27)
--- NOTE | 2025-10-28 13:57 | W.PN.CARDCBS ---
Addendum entered and electronically signed by Girish Huntley MD 10/28/25 15:35:
I saw and examined the patient.
The MANAGER FAMILY or PA's note was reviewed and I agree with the note.
Comment: General: Well developed, well nourished in NAD.
Neck: Supple, no JVD, HJR, carotids +2 B/L, no bruits bilaterally.
Heart: Non displaced PMI, RRR, 2/6 basal systolic murmur, No S3, S4, no rubs.
Lungs: Scattered rhonchi
Extremities: No clubbing, cyanosis or edema bilaterally.
Neuro: Grossly nonfocal, awake, alert and oriented x3.
Stable cardiology status for TAVR are in AM. Lasix on hold with stable renal function with creatinine of 1.5
Original Note:
Today's Communication / Plan
-
Liberalize fluid, suspected now dry
Holding Lasix
Plan for TAVR in a.m.
Impression / Plan
-
.
PCP: Dr. Osman
Cardiology: Dr. Huntley
Impression:
Presentation with SOB
Acute on chronic HFrEF
Elevated troponin, suspected nonischemic myocardial injury
Low flow-Severe with mean gradient 35 mmHg by echo 06/26/2025, planned TAVR 10/29/25
Elective cardiac catheterization for PCI LAD and circumflex 10/09/[address] Gutierrez, radial approach
Successful stenting of the mid LAD with a 3.0 x 34 mm Ady stent that was postdilated to high-pressure's with a 3.5 mm noncompliant balloon. Successful stenting of the circumflex extending into a terminal obtuse marginal branch. SHOCKWAVE
lithotripsy was performed with a 3.0 x 12 mm balloon and was followed by placement of a 3.0 x 15 mm [place] stent that was implanted at nominal pressures and postdilated with a 3.25 mm noncompliant balloon
Biventricular cardiomyopathy with reduced ejection fraction, valvular and ischemic.
EF 20-25% with dilated RV and reduced RV systolic function 07/2025
Recent heart failure admission July 2025, September 2025
Atrial fibrillation, new diagnosis 08/19/2025
Eliquis anticoagulation
Left bundle branch block
PAD, suspected
Venous stasis dermatitis/ venous stasis
Hyperlipidemia
Rheumatoid arthritis, on Rituxan and hydroxychloroquine
Chronic anemia
Gait dysfunction
Echo 06/26/2025: EF 50%, severe with peak/mean 64/35 mmHg, mild to moderate MR, mild to moderate TR with PAP 54 mmHg
Echo 08/20/2025: EF 20 to 25% with global hypokinesis. Dilated right ventricle with mildly reduced RV systolic function. By atrial dilation. Heavily calcified aortic valve with reduced leaflet excursion.
Echo Oct 21 2025: Severely reduced left ventricular systolic function with estimated LVEF of 23% by Almeida's method. Dilated right ventricle with mildly reduced RV function. Severely dilated left atrium. Moderately dilated right atrium. Severe
aortic valve leaflet thickening with severe low-flow low gradient aortic stenosis in the setting of a severely reduced ejection fraction. Estimated peak and mean trans aortic gradients of 35 and 22 mmHg, respectively. Trace aortic regurgitation..
Moderate mitral valve regurgitation. Moderate to severe tricuspid regurgitation with severe pulmonary hypertension. Estimated pulmonary artery systolic pressure of 68 mmHg, assuming a right atrial pressure of 15 mmHg. Small pericardial effusion is
present. Moderate size pleural effusion is present., last EF Jul 2025 20-25%.
Plan:
-planned for TAVR in AM
-appears to be getting dry. now feels fatigued with evidence of orthostasis by ortho VS. liberalize fluids today. will assess volume status at time of TAVR tomorrow
-Cr stable at 1.5
-was on po lasix 60mg BID prior to admission
-remains in rate controlled afib on review of tele. continue amiodarone 200mg daily. uptitration of BB has been limited by hypotension
-eliquis on hold as of 12/2 PM dose. continue plavix given recent PCI. hgb 9.4
-trop mildly elevated but flat in 0.08 range. suspected nonischemic myocardial injury secondary to above. no CP
-d/w nursing
Progress Note - [facility] [employer]
Subjective
Date of Service: October 28, 2025
feels tired. anxious about procedure tomorrow
Objective
Labs:
10/28/25 03:53
10/28/25 03:53
Labs
Hgb 9.4 g/dL (13.0-18.0) L 10/28/25 03:53
Hct 29.1 % (39.0-52.0) L 10/28/25 03:53
Plt Count 110 10^3/uL (130-400) L 10/28/25 03:53
Sodium 133 mmol/L (135-145) L 10/28/25 03:53
Potassium 3.7 mmol/L (3.5-5.1) 10/28/25 03:53
BUN 62 mg/dl (9-20) H 10/28/25 03:53
Creatinine 1.5 mg/dL (0.7-1.3) H 10/28/25 03:53
Glucose 112 mg/dl (70-99) H 10/28/25 03:53
Troponins
10/27/25 10/27/25 10/27/25
01:10 05:10 12:13
Troponin I 0.080 H* 0.080 H* Cancelled
Vital Signs and I&O:
Vital Signs
Temp Pulse Resp BP Pulse Ox
97.9 F 92 18 94/64 100
10/28/25 10:49 10/28/25 11:00 10/28/25 10:49 10/28/25 10:53 10/28/25 10:51
Vital Signs
Temp Pulse Resp BP Pulse Ox
97.9 F 92 18 94/64 100
10/28/25 10:49 10/28/25 11:00 10/28/25 10:49 10/28/25 10:53 10/28/25 10:51
Intake & Output
10/26/25 10/27/25 10/28/25 10/29/25
07:59 07:59 07:59 07:59
Intake Total 480 / 480 840 / 840
Output Total 700 / 700 375 / 375
Balance 480 / 480 140 / 140 -375 / -375
Physical Exam
Physical Exam
GEN: No distress, awake, alert, oriented x3. Sitting in chair
HEENT: supple, anicteric, mmm, EOMI
LUNGS: CTA bilaterally, no wheezes/rales
CV: Irreg, S1/S2, 2/6 syst LSB
ABD: soft, BS+, NT/ND
EXT: No cyanosis, clubbing, edema
NEURO: Gross non-focal
SKIN: Warm, pink, dry. No rash. Bilateral lower extremities with dressings clean dry and intact
[2025-10-28] MEDS: FERRLECIT 110 MG IV (17:32)
[2025-10-28] MEDS: LIPITOR 40 MG PO (17:32)
[2025-10-28] MEDS: FLUSH (NSS) 2 FLUSH IV (17:32)
[2025-10-28] MEDS: MELATONIN 20 MG PO (22:14)
[2025-10-28] MEDS: FLOMAX 0.8 MG PO (22:14)
--- NOTE | 2025-10-28 23:59 | PTCARENOTE ---
Assumed care of patient at change of shift. Tele monitor shows SR-ST w/ BBBC and occasional PVCs. Denies any chest discomfort. Pt clipped and CHG bed bath performed. Applied sacral and heel foams. WOC consulted. See skin wound assessment for further
info. Pt ambulated w/ RW and required one assist to BSC, pt had a formed brown BM. Denies any dizziness, appears SOB w/ exertion. Patient aware to maintain NPO status for planned TAVR on 10/29. Call kurtz within reach.
[2025-10-29] VITALS (42 sets, daily range): BP systolic 84–125; BP diastolic 43–95; BMI 22.8
[2025-10-29 05:05] LABS: Hematocrit 28.9 % (39.0-52.0); Hemoglobin 9.0 g/dL (13.0-18.0); Mean Corp Hgb Conc. 31.1 g/dL (33.0-37.0); Mean Corpuscular Volume 90.0 fL (80.0-94.0); Platelet Count 93 10^3/uL (130-400); Red Cell Dist. Width 14.6 % (11.5-14.5)
[2025-10-29] MEDS: LOW STRENGTH ASPIRIN 81 MG PO (05:14)
--- NOTE | 2025-10-29 05:18 | PTCARENOTE ---
2nd round of CHG bath and CHG wipes completed. Linens changed. Pt received his morning dose of 81mg Aspirin at 05:14. Neuro WNL, pupils round and reactive to light. Pt remains NPO. Call kurtz within reach, fall risk precautions maintained.
[2025-10-29 05:21] LABS: Blood Urea Nitrogen 54 mg/dl (9-20); Calcium 8.3 mg/dl (8.4-10.2); Carbon Dioxide 31 mmol/L (22-30); Chloride 99 mmol/L (98-107); Estimated Creatinine Clearance 37 ml/min; Glucose 106 mg/dl (70-99); Magnesium 2.2 mg/dl (1.6-2.3); Sodium 132 mmol/L (135-145); eGFR 52.51
[2025-10-29 05:26] LABS: Potassium 3.6 mmol/L (3.5-5.1)
--- NOTE | 2025-10-29 06:28 | W.CVOR.SURPR ---
CVOR Surgeon Immed Pre Op
-
I have examined this patient prior to performance of the scheduled procedure.
The patient's condition is unchanged from the time of the dictated/written History and
Physical and the patient is able to undergo the scheduled procedure.
--- NOTE | 2025-10-29 07:06 | W.PN.HOSP.TC ---
Today's Communication/Plan
-
TAVR today
See plan
Assessment / Plan
Assessment / Plan
Physical Exam
General: Other (89y M in no acute distress.)
HEENT: Other (Dry MM. Pos JVD.)
Respiratory: Other (Decreased BS at bases - R > L. Pos bibasilar rales. No wheezing.)
Cardiac: S1/S2, Irregular Rhythm and Murmur (III/ ROSA)
GI: Soft, Non Tender, Non Distended, Normal Bowel Sounds and Other (Pitting edema of lower abdominal wall, buttocks, proximal thighs / perineal area.)
Musculoskeletal: No Cyanosis and Other (LE edema - but most edema in dependent areas / buttocks, etc as noted above.)
Neuro: AO x 3
Assessment/Plan
89 y/o male with past medical history significant for ASCVD, severe aortic stenosis, HFrEF and recent admission for CHF who presented to [facility] ED complaining of fatigue and dyspnea. Patient was most recently admitted to from 10/20/25 - 10/23/25
for similar symptoms. He was treated with IV diuresis - though diuresis was limited somewhat by renal impairment / MICHAEL. He had previously been scheduled for TAVR on 11/12/25 and this was moved up to 10/29/25. Patient was discharged on 10/23/25 on
Lasix 60mg BID. He stated that he felt fairly well for a few days; however, his symptoms then quickly returned. He had been noticing gradual decline in urine output - despite compliance with Lasix. He had noted progressive fatigue > dyspnea. He
appreciated significant edema / swelling - mostly in the abdomen / buttocks / thighs as he spends much of his day in a recliner with his feet up.
His weight has 'trickled' up from 151 at discharge to 153 earlier on 10/26/25 - though his family noted that his weight several months ago was in the 130s. At the time of admission, patient denied any chest pain or palpitations.
Presentation with worsening shortness of breath, fatigue and decreased urine output, significant dependent edema (mostly in abdomen / buttocks / thighs)
Acute on Chronic HFrEF
Severe Aortic Stenosis status post TAVR on 10/29/25
Moderate Mitral Regurgitation
Moderate - Severe Tricuspid Regurgitation
Severe Pulmonary Hypertension
- Significant dependent edema on exam but only minimal weight gain from recent discharge.
- Diuresis limited by cardiorenal syndrome during prior admission.
- IV Lasix previously given, then stopped as patient appears to be getting more dry
- Cardiology evaluation for additional recommendations.
- CT Surgery performed TAVR on 10/29/25 (today)
- Echo was done 10/21 with LVEF = 23% and valvular pathology as noted above. No need to repeat.
Atherosclerotic Cardiovascular Disease
- s/p LAD stent on 10/09. Continue DAPT.
- Continue statin therapy.
- No chest pain at present.
- Cardio eval as noted above.
Persistent Atrial Fibrillation / Flutter
- New diagnosis as of 08/19/25.
- Remains in flutter with variable AV block at present.
- Continue current medications including amiodarone
- Resume Eliquis post TAVR
- Cardiology evaluation as noted above.
MICHAEL / Cardiorenal Syndrome
- Likely secondary to CHF / severe .
- SCr = 1.6---->1.5---->1.3 compared to prior baseline of 1.1 and recent discharge value of 1.3.
- Diuresis efforts limited by progressive renal impairment.
- Hopefully hemodynamics will improve s/p TAVR allowing for more effective / tolerated diuresis.
- Follow SCr for changes.
Hyponatremia
- Stable
- Monitor BMP
Orthostatic Hypotension
Chronic Iron Deficiency Anemia
- Hgb relatively stable
- Iron studies suggest iron deficiency anemia
- Intravenous iron ordered and started on 10/27/25
Indigestion Symptoms
- Tums prn ordered
Rheumatoid Arthritis
- Stable. Continue Plaquenil.
Collagenous Colitis
- Stable. Continue budesonide.
Chronic Constipation
- Continue bowel regimen. Miralax PRN.
BPH
- Stable. Continue tamsulosin.
- Bladder scan protocol.
Chronic Insomnia
- Continue melatonin.
Stage 1 Sacral Pressure Injury
-Wound care consult
DVT Prophylaxis: On Eliquis
Code Status: Full Code
Anticipated Discharge: > 48 hours
Subjective/Interval History
-
Date of Service: October 29, 2025
Patient was seen and examined after his TAVR procedure. He denied any complaints.
Objective Data
-
Labs:
Laboratory Results
10/29/25
04:38
WBC 7.3
Hgb 9.0 L
Hct 28.9 L
Plt Count 93 L
Sodium 132 L
Potassium 3.6
Chloride 99
Carbon Dioxide 31 H
BUN 54 H
Creatinine 1.3
Glucose 106 H
Calcium 8.3 L
Vital Signs:
Vital Signs
Temp Pulse Resp BP Pulse Ox
97.8 F 89 16 97/58 94
10/29/25 04:25 10/29/25 06:00 10/29/25 04:25 10/29/25 04:31 10/29/25 04:26
I&O
10/28/25 10/29/25 10/30/25
06:59 06:59 06:59
Intake Total 840 / 840 720 / 720
Output Total 700 / 700 900 / 900
Balance 140 / 140 -180 / -180
[2025-10-29] MEDS: AZACTAM 2000 MG IV ×2 (07:43)
[2025-10-29 08:42] LABS: ACT-LR - POC 395 Seconds (116-155)
--- NOTE | 2025-10-29 08:54 | W.IMMPOSTOP ---
Addendum entered and electronically signed by Dev Cameron MD 10/29/25 09:15:
[id number]
Original Note:
Surgical Immed Post Op Note
-
STRUCTURAL HEART PROCEDURE NOTE:
Preoperative Dx:
Severe low-flow low gradient aortic stenosis with a mean gradient of 35 mmHg by echo on 06/26/2025
Significantly reduced LVEF with biventricular cardiomyopathy both valvular and ischemic with an LVEF of 20 to 25%
Coronary artery disease status post successful stenting of the mid LAD lesion and obtuse marginal with shockwave lithotripsy
Recent heart failure admissions in July and September 2025
New onset atrial fibrillation
Pre-existing left bundle branch block
Peripheral arterial disease
Venous stasis
Hyperlipidemia
Rheumatoid arthritis
Chronic anemia
Gait dysfunction
Postoperative Dx:
Same
Patient's LVEDP was not significantly elevated at 20 mmHg, however he still has significantly reduced biventricular systolic function with an LVEF of 20 to 25% during this procedure he required epinephrine infusion as well as Levophed infusion
Procedures:
1. Left SUPPLY CHAIN TECH access with tactile, ultrasound, and fluoroscopic guidance, micropuncture technique, limited angiography, 6 [place] sheath placement
2. Left CFV access with ultrasound and fluoroscopic guidance, Seldinger technique, short 6 [place] sheath placement
3. Right SUPPLY CHAIN TECH access with tactile, ultrasound, and fluoroscopic guidance, micropuncture technique, limited angiography, 6 [place] sheath placement
4. Attempted placement of temporary pacing wire, unsuccessful secondary to significant venous tortuosity
5. Exchange of 6 [place] sheath for long 6 [place] sheath x 2 (procedural venous sheath was a 35 cm Brite tip), successful placement of temporary pacing wire with threshold testing
6. Placement of pigtail catheter in the right coronary cusp with limited aortography and confirmation of coplanar valve deployment view
7. Perclose sutures x 2 to right SUPPLY CHAIN TECH with subsequent placement of 8 [place] sheath
8. Placement of Hannah E sheath via right common femoral artery access site, systemic heparinization
9. Wire purchase across stenotic aortic valve (AL-1, soft-tipped straight, table J, LVEDP assessment (20 mmHg), extra-stiff wire placement)
10. Right transfemoral TAVR with placement of 29 mm Hannah LENNY 3 Resilia valve
11. Completion aortography
12. Completion transthoracic echocardiographic assessment (no aortic insufficiency/PVL, mean gradient 2 to 3 mmHg)
13. Removal of valve delivery system with right SUPPLY CHAIN TECH management with Perclose sutures x 2, manual pressure
14. Completion right iliofemoral angiography
15. Removal of temporary pacing wire
16. Removal of left SUPPLY CHAIN TECH 6 [place] sheath with management with 6 [place] Angio-Seal x 1, manual pressure (protamine administration)
17. Exchange of long left CFV 6 [place] sheath for short CFV 6 [place] sheath, secured in position (this sheath was left secondary to IV access difficulties and the potential need for vasoactive/inotropic support)
minister helper:
Dr. Danny Gutierrez
Cardiac Surgeon:
Dr. Dev Cameron
Anesthesia:
MAC and local to bilateral groins
Implants:
[employer], LENNY 3 29 mm Resilia valve, serial number: [id number]
Perclose x 2 to right SUPPLY CHAIN TECH
6 [place] Angio-Seal x 1 to left SUPPLY CHAIN TECH
Cath Data:
Start: 0752hrs, Deploy: 0834hrs, End: 0850hrs
FT: 10.9min, mGy: 164, DAP: 17.4, Contrast: 62
Post-TTE: mean gradient 2-3mmHg, no AI/PVL
Complications:
None
Condition:
Stable/guarded to recovery
--- NOTE | 2025-10-29 08:57 | ITS.CL.TAVR ---
Band Ripsaw Operator - TAVR Report
TAVR PRocedure
Procedure Report:
TRANSCATHETER AORTIC VALVE REPLACEMENT
Date of Procedure: October 29, 2025
Referring: Dr. Girish Huntley
Operators: Drs. Danny Gutierrez and Dev Cameron
PROCEDURE PERFORMED:
1. Successful placement of 29 mm Hannah Shanel S3 aortic valve via right common femoral approach.
PREPROCEDURE NYHA CLASS: 4 with several recent hospitalizations for heart failure
DESCRIPTION OF PROCEDURE: The patient was referred for assessment of severe symptomatic aortic stenosis and following a comprehensive evaluation it was felt that transcatheter aortic valve replacement (TAVR) would be the most appropriate treatment.
Informed consent was obtained prior to the procedure. A 'time-out' was called and the procedural plan was verbally confirmed by anesthesia, surgery, perfusion, and laboratory tester staff.
Arterial was obtained in the left common femoral artery using ultrasound guidance and micropuncture technique. A 6 Fr sheath was inserted. Ultrasound guidance was then utilized to gain access into the left common femoral vein and a 6 Fr sheath was
inserted. Attention was then turned to the right common femoral artery. Ultrasound guidance was utilized and a 6 [place] sheath was inserted.
A transvenous pacemaker wire was then advanced from the left common femoral vein with a significant degree of difficulty related to tortuosity. Ultimately, a J-wire was advanced to the inferior vena cava and a 6 x 35 cm Brite Tip sheath was
inserted. The pacing wire was then advanced to the right ventricular apex where excellent pacing thresholds were obtained.
An angled pigtail catheter was then advanced through the left common femoral sheath and positioned in the proximal ascending thoracic aorta / right coronary cusp. Angiography was performed to define a coplanar angle facilitating positioning and
delivery of the TAVR device. RUSSIAN 1 / CAU 27 appear to be a reasonable coplanar angle.
Pre-closure of the right femoral arteriotomy was then performed using 2 Perclose devices and was followed by placement of an 8 Fr arterial sheath.
An AL-1 catheter was then advanced to the proximal descending thoracic aorta over 0.035' J-tipped guidewire. An Amplatz Extra-stiff wire was then advanced through the AL-1 catheter to the proximal descending thoracic aorta. The AL-1 catheter was
removed and the supportive wire was utilized to facilitate delivery of the Hannah eSheath and dilator. Heparin, 7000 units, was administered and the ACT was monitored throughout the procedure.
The AL-1 catheter was then readvanced through the Hannah eSheath. The 0.035' stiff wire was allowed to drift across the aortic arch and the AL1 was positioned just above the aortic valve. The stenotic leaflets were probed with a Soft-tip Straight
wire. The aortic leaflets were crossed and the AL-1 catheter followed the Soft-tip Straight wire to the mid left ventricle. The wire was removed. Left ventricular end-diastolic pressures was measured at 20 mmHg.
An Amplatz Extra-Stiff wire with a generous curved tip was then advanced to the mid left ventricle. The AL-1 catheter was removed and the Amplatz wire was left in place in order to facilitate delivery of the Hannah delivery system. A 29 mm
Hannah SHANEL S3 valve was brought to the table and the orientation of the valve on the balloon delivery system was confirmed by all operators. The SHANEL S3 valve was advanced through the eSheath and into the proximal descending thoracic aorta.
The SHANEL valve was centered on the delivery balloon and the entire system was retroflexed as across the aortic arch in an RUSSIAN projection. The SHANEL S3 delivery system was then advanced across the stenotic aortic leaflets. The pusher was
retracted. Rapid pacing was undertaken and the 29 mm SHANEL S3 valve was deployed during rapid pacing. Valve deployment was uneventful. Aortography following valve deployment suggested minimal aortic insufficiency while the wire was still across
the valve in the left ventricle.
The post valve deployment transthoracic echocardiogram was notable for 3 mmHg with no aortic insufficiency..
The Hannah valve delivery system was removed. The Hannah eSheath was removed and the Perclose knots were advanced to the arteriotomy site with excellent hemostasis. Angiography after the Perclose knots were advanced to the arteriotomy site and
demonstrated good distal runoff.
A 6 [place] Angio-Seal was then utilized to obtain hemostasis in the left common femoral artery. The temporary pacemaker and 6 Fr sheath were removed and manual pressure was held over the 6 [place] femoral venous access.
Protamine was administered to reverse the intravenous anticoagulant.
Fluoro Time: 10.9 min, Dose: 164 mGy, DAP : 17.4 gy.cm2
CONCLUSIONS:
1. Severe symptomatic aortic stenosis. Successful deployment of a 29 mm SHANEL S3 valve with a post valve mean gradient of 3 mmHg with no paravalvular AI
2. The right common femoral arteriotomy was closed with 2 Perclose devices and successful closure of the left arteriotomy site with a 6 Fr Angio-Seal
Copy to: Dr. Girish Huntley
[2025-10-29 09:04] LABS: ACT-LR - POC 384 Seconds (116-155)
[2025-10-29] MEDS: NSS 500 IV (09:39)
[2025-10-29] MEDS: LEVOPHED 250 IV (09:40)
--- NOTE | 2025-10-29 09:50 | CM ---
pt s/p TAVR this am, cm following
[2025-10-29] MEDS: COLACE PO (10:33)
--- NOTE | 2025-10-29 11:04 | WOUNDNOTE ---
[facility] RN note: Patient admitted for TAVR
See H&P for complete history.
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
Severe Aortic Stenosis
Moderate Mitral Regurgitation
Moderate - Severe Tricuspid Regurgitation
Severe Pulmonary Hypertension
Cardiorenal syndrome
Wound Location and type/assessment: Patient with stage 1 PI to sacrum. Daughter at bedside and said patient has an area of sacrum and opens and closes. They use an air surface at home which she says helps healing. Daughter has been using air
cushion to off-load patients sacrum during hospitalization. At time of assessment, the sacral/coccyx appeared to be a stage 1 PI without open areas noted. No drainage noted. Patient s/p TAVR this morning. Per chart review heels are blanchable red
and adhesive foam was placed last night.
Appetite: Fair, per patient report.
Pressure redistribution devices in place: Patient currently on Versa Care Accumax. Will recommend static air overly. Turning schedule, keep heels off-loaded with pillow or air cushion under calves.
Plan: Will recommend keeping heels and sacrum covered and assessing sacrum daily. Discussed plan with RN Christal who will place static air overlay. Reviewed plan with daughter who also states understanding of prevention measures. Patient has several
comorbidities including poor mobility, HF, and anemia. Wounds may worsen and new wounds may develop even with optimal care. Will confirm orders with hospitalist and update nurse. Updated care plan and will follow as needed.
Note to case management of equipment requested for discharge:
Recommend follow up at wound care center upon discharge.
--- NOTE | 2025-10-29 11:16 | PTCARENOTE ---
Rec'd Pt from catheter builder recovery s/p TAVR, A,A+Ox3, answers questions appropriately, denies pain. Bilat femoral dsgs D+I. L groin with femoral vein sheath sutured in place, + DP pulses bilat by doppler. Family at bedside. [facility] nurse came to see Pt.
[2025-10-29] MEDS: ENTOCORT EC PO (12:33)
--- NOTE | 2025-10-29 14:22 | CM ---
PT recommended SNF, pt agreeable- referrals faxed, awaiting bed avail.
[2025-10-29] MEDS: PLAVIX PO (14:36)
[2025-10-29] MEDS: TYLENOL 650 MG PO (14:50)
[2025-10-29] MEDS: PLAQUENIL 200 MG PO (14:50)
[2025-10-29] MEDS: PACERONE 200 MG PO (14:51)
[2025-10-29 15:16] LABS: ACT-LR - POC 144 Seconds (116-155)
[2025-10-29] MEDS: FERRLECIT 110 MG IV (17:01)
--- NOTE | 2025-10-29 17:39 | PTCARENOTE ---
Pt weaned of Levophed, ACT checked 144, venous sheath removed by laboratory monitor nurses, pt olive well. Hemostasis achieved at 1545.
[2025-10-29] MEDS: LIPITOR 40 MG PO (18:11)
[2025-10-29] MEDS: COLACE 200 MG PO (20:04)
--- NOTE | 2025-10-29 20:30 | PTCARENOTE ---
Pt. received from day shift, DEISI ST on the monitor, at times flips over to afib. B/L groin dressings, CDI. Pt has no complaints of pain or SOB. Pt educated on holding groin sites if he needs to cough, verbalizes understanding.
[2025-10-29] MEDS: FLOMAX 0.8 MG PO (22:32)
[2025-10-29] MEDS: MELATONIN 20 MG PO (22:32)
[2025-10-30] VITALS (15 sets, daily range): BP systolic 84–115; BP diastolic 49–95; PULSE 93; O2SAT 95; BMI 23.0
--- NOTE | 2025-10-30 04:13 | W.PN.CT ---
Addendum entered and electronically signed by NATO Medina 10/30/25 09:32:
CDI QUERY RESPONSE
- post procedural hypotension
Original Note:
Today's Communication / Plan
-
-pod#1
-no issues overnight, no complaints, denies SOB. Pleasant, appropriate, A&O x3
-in a-fib/flutter. No significant leatha or pauses
-has pre-existing LBBB
-Echo today
-current meds (Plavix, Eliquis, Amio 200 qd, Lipitor, Plaquenil, Flomax)
-encourage IS, OOB
Assessment / Plan
-
- Severe symptomatic right right common artery low-flow low gradient aortic stenosis with a mean gradient of 35 mmHg by echo on 06/26/2025 - s/p Right transfemoral TAVR with placement of 29 mm Hannah LENNY 3 Resilia valve on 10/29/25, pod #1
- LVEDP was not significantly elevated at 20 mmHg, however he still has significantly reduced biventricular systolic function with an LVEF of 20 to 25%. During the procedure he required epinephrine infusion as well as Levophed infusion
- Post-TTE: mean gradient 2-3mmHg, no AI/PVL
- Significantly reduced LVEF with biventricular cardiomyopathy both valvular and ischemic with an LVEF of 20 to 25%
- Coronary artery disease, status post successful stenting of the mid LAD lesion and obtuse marginal with shockwave lithotripsy on 10/09/25
- Acute on chronic combined systolic/diastolic CHF with recent heart failure admissions in July and September 2025
- New onset atrial fibrillation
- Pre-existing left bundle branch block
- Peripheral arterial disease
- Venous stasis
- Hyperlipidemia
- Rheumatoid arthritis
- Chronic anemia
- Gait dysfunction
Discussed patient care with: Nursing and Care Team
Subjective
-
Date of Service: October 29, 2025
Objective Data
-
Lab Results
10/29/25 04:38
10/29/25 04:38
Vital Signs
Vital Signs
Temp Pulse Resp BP Pulse Ox
97.5 F 94 17 101/54 98
10/29/25 20:15 10/29/25 21:00 10/29/25 20:15 10/29/25 18:30 10/29/25 20:15
CT Intake/Output/Weight
10/29/25 10/29/25 10/30/25
06:59 18:59 06:59
Intake Total 744 / 984 240 / 984
Output Total 375 / 900 400 / 650 250 / 650
Balance -375 / -180 344 / 334 - / 334
SaO2: 98
Physical Exam
-
General: Awake and AOx3
Cardiovascular: Irregular rate & rhythm, No Murmurs and No Rub
Respiratory: Rales (L anteriorly. No wheeze)
Incision: Clean (groins are soft, nontender, no hematoma b/l)
Extremities: No Edema (chronic skin changes b/l. DPs by Doppler b/l)
Abdomen: soft, nontender, nondistended, + bowel sounds
Data Reviewed
-
Lab Results: Results Reviewed
Medications: Active Meds Reviewed
Chest X-Ray: Report Reviewed and Image Reviewed
ECG: Report Reviewed and Image Reviewed
--- NOTE | 2025-10-30 04:33 | PTCARENOTE ---
Pt. received from day shift, AAOx3, neuro WNL, ambulates assist of 1 with RW, VSS, A-flutter with BBB and occasional PVC's on the monitor, at times flips over to afib. B/L groin dressings, CDI. Pt has no complaints of pain or SOB, IS performed, up
to 1500. Pt educated on holding groin sites if he needs to cough, verbalizes understanding.
[2025-10-30 04:37] LABS: Hematocrit 30.2 % (39.0-52.0); Hemoglobin 9.3 g/dL (13.0-18.0); Mean Corp Hgb Conc. 30.8 g/dL (33.0-37.0); Mean Corpuscular Volume 89.6 fL (80.0-94.0); Platelet Count 86 10^3/uL (130-400); Red Cell Dist. Width 14.7 % (11.5-14.5)
[2025-10-30 05:06] LABS: Blood Urea Nitrogen 48 mg/dl (9-20); Calcium 8.5 mg/dl (8.4-10.2); Carbon Dioxide 30 mmol/L (22-30); Chloride 101 mmol/L (98-107); Estimated Creatinine Clearance 37 ml/min; Glucose 100 mg/dl (70-99); Magnesium 2.2 mg/dl (1.6-2.3); Potassium 3.7 mmol/L (3.5-5.1); Sodium 134 mmol/L (135-145); eGFR 52.51
--- NOTE | 2025-10-30 08:12 | W.PN.HOSP.TC ---
Today's Communication/Plan
-
Thoracentesis today
See plan
Assessment / Plan
Assessment / Plan
Physical Exam
General: Other (89y M in no acute distress.)
HEENT: Other (Dry MM. Pos JVD.)
Respiratory: Other (Decreased BS at bases - R > L. Pos bibasilar rales. No wheezing.)
Cardiac: S1/S2, Irregular Rhythm and Murmur (III/ ROSA)
GI: Soft, Non Tender, Non Distended, Normal Bowel Sounds and Other (Pitting edema of lower abdominal wall, buttocks, proximal thighs / perineal area.)
Musculoskeletal: No Cyanosis and Other (LE edema - but most edema in dependent areas / buttocks, etc as noted above.)
Neuro: AO x 3
Assessment/Plan
89 y/o male with past medical history significant for ASCVD, severe aortic stenosis, HFrEF and recent admission for CHF who presented to [facility] ED complaining of fatigue and dyspnea. Patient was most recently admitted to from 10/20/25 - 10/23/25
for similar symptoms. He was treated with IV diuresis - though diuresis was limited somewhat by renal impairment / MICHAEL. He had previously been scheduled for TAVR on 11/12/25 and this was moved up to 10/29/25. Patient was discharged on 10/23/25 on
Lasix 60mg BID. He stated that he felt fairly well for a few days; however, his symptoms then quickly returned. He had been noticing gradual decline in urine output - despite compliance with Lasix. He had noted progressive fatigue > dyspnea. He
appreciated significant edema / swelling - mostly in the abdomen / buttocks / thighs as he spends much of his day in a recliner with his feet up.
His weight has 'trickled' up from 151 at discharge to 153 earlier on 10/26/25 - though his family noted that his weight several months ago was in the 130s. At the time of admission, patient denied any chest pain or palpitations.
Presentation with worsening shortness of breath, fatigue and decreased urine output, significant dependent edema (mostly in abdomen / buttocks / thighs)
Acute on Chronic HFrEF -- significantly reduced biventricular systolic function with an LVEF of 20 to 25% seen during surgery on 10/29/25
Biventricular cardiomyopathy both valvular and ischemic
Severe Aortic Stenosis status post TAVR on 10/29/25
Moderate Mitral Regurgitation
Moderate - Severe Tricuspid Regurgitation
Severe Pulmonary Hypertension
- Significant dependent edema on exam but only minimal weight gain from recent discharge.
- Diuresis limited by cardiorenal syndrome during prior admission.
- IV Lasix previously given, then stopped as patient appears to be getting more dry
- Cardiology evaluation for additional recommendations.
- CT Surgery performed TAVR on 10/29/25 (today)
- Echo was done 10/21 with LVEF = 23% and valvular pathology as noted above.
- Echo from 10/30/25 with a pretty good size plural effusion. No significant pericardial effusion. TAVR look good peak/mean 5/3mmhg with trace AI.
Left-Sided Pleural Effusion
- Thoracentesis on 10/30/25
- Follow studies
Atherosclerotic Cardiovascular Disease
- s/p LAD stent on 10/09. Continue Eliquis and Plavix.
- Continue statin therapy.
- No chest pain at present.
- Cardio eval as noted above.
Persistent Atrial Fibrillation / Flutter
- New diagnosis as of 08/19/25.
- Remains in flutter with variable AV block at present.
- Continue current medications including amiodarone
- Resumed Eliquis post TAVR
- Continue Amiodarone 200 mg daily.
- Due to fluctuating renal function as well as significant upper extremity ecchymoses, and recent PCI, is on regimen of Plavix 75 mg daily and Eliquis 2.5 mg twice daily.
- Cardiology evaluation as noted above.
MICHAEL / Cardiorenal Syndrome
- Likely secondary to CHF / severe .
- SCr = 1.6---->1.5---->1.3 compared to prior baseline of 1.1 and recent discharge value of 1.3.
- Diuresis efforts limited by progressive renal impairment.
- Hopefully hemodynamics will improve s/p TAVR allowing for more effective / tolerated diuresis.
- Follow SCr for changes.
Hyponatremia
- Stable
- Monitor BMP
Orthostatic Hypotension
Chronic Iron Deficiency Anemia
- Hgb relatively stable
- Iron studies suggest iron deficiency anemia
- Intravenous iron ordered and started on 10/27/25
Thrombocytopenia
- From aortic stenosis?
- No signs of bleeding or thrombosis
- Check PT/PTT/Reticulocytes/Bilirubin
Indigestion Symptoms
- Tums prn ordered
Rheumatoid Arthritis
- Stable. Continue Plaquenil.
Collagenous Colitis
- Stable. Continue budesonide.
Chronic Constipation
- Continue bowel regimen. Miralax PRN.
BPH
- Stable. Continue tamsulosin.
- Bladder scan protocol.
Chronic Insomnia
- Continue melatonin.
Stage 1 Sacral Pressure Injury
-Wound care consult
DVT Prophylaxis: On Eliquis
Code Status: Full Code
Anticipated Discharge: 24 - 48 hours
Subjective/Interval History
-
Date of Service: October 30, 2025
Patient was seen and examined. He denied any new complaints, he has ambulated according to him.
Objective Data
-
Labs:
Laboratory Results
10/30/25
03:54
WBC 10.6
Hgb 9.3 L
Hct 30.2 L
Plt Count 86 L
Sodium 134 L
Potassium 3.7
Chloride 101
Carbon Dioxide 30
BUN 48 H
Creatinine 1.3
Glucose 100 H
Calcium 8.5
Vital Signs:
Vital Signs
Temp Pulse Resp BP Pulse Ox
98.3 F 90 20 110/65 94
10/30/25 07:56 10/30/25 07:31 10/30/25 07:56 10/30/25 07:26 10/30/25 07:56
I&O
10/29/25 10/30/25 10/31/25
06:59 06:59 06:59
Intake Total 720 / 720 984 / 984
Output Total 900 / 900 900 / 900 150 / 150
Balance -180 / -180 84 / 84 -150 / -150
[2025-10-30] MEDS: VITAMIN D3 (cholecalciferol) 25 MCG PO (08:58)
[2025-10-30] MEDS: COLACE 200 MG PO ×2 (08:58→19:59)
[2025-10-30] MEDS: THERAGRAN 1 TABLET PO (08:58)
[2025-10-30] MEDS: ENTOCORT EC 3 MG PO (08:58)
[2025-10-30] MEDS: PACERONE 200 MG PO (08:58)
[2025-10-30] MEDS: PLAQUENIL 200 MG PO (08:58)
[2025-10-30] MEDS: ELIQUIS 2.5 MG PO ×2 (08:59→19:59)
[2025-10-30] MEDS: PLAVIX 75 MG PO (08:59)
[2025-10-30] MEDS: VANCOCIN 200 IV (08:59)
--- NOTE | 2025-10-30 09:10 | PN.CDI ---
CDI
- -
CDI:
Physician Documentation Request
Admit Date: 10/26/25 20:05
Dear Doctor Rakesh,
Please review the following and provide your response in the progress notes.
Current documentation includes a diagnosis of hypotension.
Clinical Indicators:
Operative Report, 10/29
#Patient's LVEDP was not significantly elevated at 20 mmHg,
#...however he still has significantly reduced biventricular systolic function
#...with an LVEF of 20 to 25% during this procedure.
#...He required epinephrine infusion as well as Levophed infusion.
CT PN, 10/29
#...s/p Right transfemoral TAVR with placement of 29 mm Hannah LENNY 3 Resilia valve
#...on 10/29/25, pod #1
#- LVEDP was not significantly elevated at 20 mmHg,
#...however he still has significantly reduced biventricular systolic function
#...with an LVEF of 20 to 25%.
#During the procedure he required epinephrine infusion as well as Levophed infusion
Based on the above and your clinical assessment, please clarify which of the following is the most likely etiology of the above symptoms and treatment rendered:
Cardiogenic shock
Shock, unknown type
Hypotension - indicate type/etiology, such as idiopathic, neurogenic or orthostatic, post-procedural, postoperative, due to hemodialysis, chronic, drug induced (indicate drug), etc.
Hypotension - unknown type/etiology
Other (please specify)
Use of terms such as suspected, likely, concern for, or probable (associated with a specific diagnosis that is being evaluated, monitored, or treated as if it exists) are acceptable and can be coded in the inpatient setting, when documented at the
time of discharge.
Thank you,
Susy Barber RN BSN CCDS
CDI Specialist
Please contact via tiger text
Please use your independent medical judgment in providing your response.
[2025-10-30] MEDS: LASIX 60 MG PO ×2 (09:54→17:22)
--- NOTE | 2025-10-30 10:21 | W.PN.CARDCBS ---
Addendum entered and electronically signed by Charlee Angel DO 10/31/25 06:08:
I saw and examined the patient 10/30/25
The Wafer Line Worker's note was reviewed and I agree with the note.
Comment: Late entry. Patient was seen and examined. Overall sitting out of bed to chair without chest pain or pressure. No shortness of breath. He is in agreement with plan for discharge to SNF.
GEN: No distress, awake, alert, oriented x3. RA
HEENT: mmm
LUNGS: CTA bilaterally, no wheezes/rales
CV: Irreg, S1/S2, 1/6 syst LSB
ABD: soft, BS+, NT/ND
EXT: 1+ of B/L LEedema. groin site C/D/I
NEURO: Gross non-focal
Plan:
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
- 2D echocardiogram during procedure with TAVR well-seated and mean gradient 2-3 mmHg with no AI or paravalvular leak. A pleural effusion was present.
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
-Limited 2D echocardiogram 10/30/2025 again demonstrated biventricular cardiomyopathy with an LVEF estimated 30 to 35%. TAVR was well-seated with peak/mean gradients 5/3 mmHg and trace AI. There is no significant pericardial effusion but a pleural
effusion was present
-Chest x-ray 10/30/2025 with bilateral interstitial and central pulmonary opacities and small to moderate bilateral pleural effusions. No pneumothorax.
-Echo discussed with CT surgery who arranged IR thoracentesis. Patient underwent successful left thoracentesis, yielding 1500 cc clear yellow pleural fluid. Postprocedure x-ray without pneumothorax.
- Pre-existing left bundle branch block with no significant bradycardia on telemetry.
- Continue postoperative supportive care with plan for outpatient echocardiogram as per protocol.
- Recommend follow-up chest x-ray in 1 -2 week
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
- Continue efforts to optimize goal-directed medical therapy
- Thoracentesis today for pleural effusion, see above
- Continue Lasix 60 mg p.o. twice daily
- Patient's blood pressures have been on the lower side and have limited medical therapy.
- If patient remains here over the weekend awaiting SNF placement and blood pressures are stable would consider adding lisinopril 2.5 mg daily and Aldactone 12.5 mg daily.
- Case management consult for SGLT2 inhibitor
Patient with newer onset atrial fibrillation diagnosed in July 2025�remains in atrial fibrillation/flutter with controlled rates.
- Continue amiodarone 200 mg daily.
-Continue Eliquis 2.5 mg twice daily while also on Plavix status post recent PCI
- Consider outpatient consideration for cardioversion if he remains in atrial fibrillation/atrial flutter
Coronary artery disease status post successful stenting of the mid LAD and OM in July and September 2025
- No symptoms of chest pain.
- Continue Plavix/Eliquis
- Continue atorvastatin
- We will hold off addition of beta-shashi at this time given left bundle branch block and recent TAVR and consider use of carvedilol as an outpatient if conduction is stable
PT/OT with plan to discharge to SNF
Original Note:
Today's Communication / Plan
-
Doing well status post TAVR
Echo pending
Continue Amio 200 mg daily, Eliquis 2.5 mg twice daily, Plavix 75 mg daily
Back on p.o. Lasix 60 mg twice daily
Ambulate. Plan for SNF upon discharge
Impression / Plan
-
.
PCP: Dr. Osman
Cardiology: Dr. Huntley
Impression:
Presentation with SOB
Acute on chronic HFrEF
Elevated troponin, suspected nonischemic myocardial injury
Low flow-Severe with mean gradient 35 mmHg by echo 06/26/2025, status post right transfemoral TAVR 29 mm Hannah LENNY valve 10/29/2025
Elective cardiac catheterization for PCI LAD and circumflex 10/09/[address] Gutierrez, radial approach
Successful stenting of the mid LAD with a 3.0 x 34 mm Lehigh stent that was postdilated to high-pressure's with a 3.5 mm noncompliant balloon. Successful stenting of the circumflex extending into a terminal obtuse marginal branch. SHOCKWAVE
lithotripsy was performed with a 3.0 x 12 mm balloon and was followed by placement of a 3.0 x 15 mm Ady stent that was implanted at nominal pressures and postdilated with a 3.25 mm noncompliant balloon
Biventricular cardiomyopathy with reduced ejection fraction, valvular and ischemic.
EF 20-25% with dilated RV and reduced RV systolic function 07/2025
Recent heart failure admission July 2025, September 2025
Atrial fibrillation, new diagnosis 08/19/2025
Eliquis anticoagulation
Left bundle branch block
PAD, suspected
Venous stasis dermatitis/ venous stasis
Hyperlipidemia
Rheumatoid arthritis, on Rituxan and hydroxychloroquine
Chronic anemia
Gait dysfunction
Echo 06/26/2025: EF 50%, severe with peak/mean 64/35 mmHg, mild to moderate MR, mild to moderate TR with PAP 54 mmHg
Echo 08/20/2025: EF 20 to 25% with global hypokinesis. Dilated right ventricle with mildly reduced RV systolic function. By atrial dilation. Heavily calcified aortic valve with reduced leaflet excursion.
Echo Oct 21 2025: Severely reduced left ventricular systolic function with estimated LVEF of 23% by Almeida's method. Dilated right ventricle with mildly reduced RV function. Severely dilated left atrium. Moderately dilated right atrium. Severe
aortic valve leaflet thickening with severe low-flow low gradient aortic stenosis in the setting of a severely reduced ejection fraction. Estimated peak and mean trans aortic gradients of 35 and 22 mmHg, respectively. Trace aortic regurgitation..
Moderate mitral valve regurgitation. Moderate to severe tricuspid regurgitation with severe pulmonary hypertension. Estimated pulmonary artery systolic pressure of 68 mmHg, assuming a right atrial pressure of 15 mmHg. Small pericardial effusion is
present. Moderate size pleural effusion is present., last EF Jul 2025 20-25%.
Plan:
-status post right transfemoral TAVR 29 mm Hannah LENNY valve 10/29/2025
-feeling well
-Echo pending
-No issues with groin sites overnight
-in afib with known pre-existing LBBB. Continue amiodarone 200 mg daily. consider for OP CV if remains in afib in follow up
-LVEDP at time of TAVR was 20. Lasix p.o. 60 mg twice daily resumed 10/30
-Creatinine stable at 1.3
-Due to fluctuating renal function as well as significant upper extremity ecchymoses, and recent PCI, is on regimen of Plavix 75 mg daily and Eliquis 2.5 mg twice daily. Hemoglobin 9.3 on 10/30
-trop mildly elevated but flat in 0.08 range. suspected nonischemic myocardial injury secondary to above. no CP
-Plan for SNF upon discharge
-Outpatient cardiac follow-up and follow-up TAVR echo arranged
-d/w CT surgery MINE DEPUTY
Progress Note - Gas Distribution And Emergency Clerk
Subjective
Date of Service: October 30, 2025
Feeling well. No groin issues
Objective
Labs:
10/30/25 03:54
10/30/25 03:54
Labs
Hgb 9.3 g/dL (13.0-18.0) L 10/30/25 03:54
Hct 30.2 % (39.0-52.0) L 10/30/25 03:54
Plt Count 86 10^3/uL (130-400) L 10/30/25 03:54
Sodium 134 mmol/L (135-145) L 10/30/25 03:54
Potassium 3.7 mmol/L (3.5-5.1) 10/30/25 03:54
BUN 48 mg/dl (9-20) H 10/30/25 03:54
Creatinine 1.3 mg/dL (0.7-1.3) 10/30/25 03:54
Glucose 100 mg/dl (70-99) H 10/30/25 03:54
Vital Signs and I&O:
Vital Signs
Temp Pulse Resp BP Pulse Ox
98.3 F 90 20 110/49 94
10/30/25 07:56 10/30/25 07:31 10/30/25 07:56 10/30/25 09:54 10/30/25 07:56
Vital Signs
Temp Pulse Resp BP Pulse Ox
98.3 F 90 20 110/49 94
10/30/25 07:56 10/30/25 07:31 10/30/25 07:56 10/30/25 09:54 10/30/25 07:56
Intake & Output
10/28/25 10/29/25 10/30/25 10/31/25
07:59 07:59 07:59 07:59
Intake Total 840 / 840 720 / 720 984 / 984
Output Total 700 / 700 900 / 900 1050 / 1050
Balance 140 / 140 -180 / -180 -66 / -66
Physical Exam
Physical Exam
GEN: No distress, awake, alert, oriented x3. Sitting in chair
HEENT: supple, anicteric, mmm, EOMI
LUNGS: CTA bilaterally, no wheezes/rales
CV: Irreg, S1/S2, 1/6 syst LSB
ABD: soft, BS+, NT/ND
EXT: No cyanosis, clubbing. 1+ of B/L LEedema
NEURO: Gross non-focal
SKIN: Warm, pink, dry. No rash.
--- NOTE | 2025-10-30 10:39 | W.PN.UPDATE ---
Update Note
Progress Note Update
Patient was seen and bilateral groins were examined and both are stable. Patient expressed nutritional enhancements, nutriton consult was placed. Patient was resumed on his oral lasix as well. Repeat Echocardiogram showed a well seated valve with
peak/mean gradients of 5/3mmHg and trace AI. Echo and CXR did show a pleural effusion so IR was consulted as well for a thoracentesis. CT Surgery will sign off at this time. Please re-consult if needed.
[2025-10-30] MEDS: MAALOX 30 ML PO ×2 (11:54→20:01)
[2025-10-30] MEDS: TUMS CHEWABLE TABLET 200 MG PO (14:19)
[2025-10-30] MEDS: FERRLECIT 110 MG IV (14:20)
--- NOTE | 2025-10-30 14:22 | PTCARENOTE ---
assumed care of the pt @ 0700. Pt is AAOx3 A fib on the monitor denies cp. VSS. Pt went to [facility] for left thoracentesis. Pt returned from procedure left bandaid intact. no s/s of distress. Pt is 1 person assist in the room. Pt stood in bathroom to
wash up. olive well.
--- NOTE | 2025-10-30 15:40 | CM ---
pt not medicallly ready for dc, cm to follow up sunday. have a SNF bed avail at 2 facilities for sunday, pt will choose sunday,
--- NOTE | 2025-10-30 17:02 | PTCARENOTE ---
Pt c/o heartburn and nausea this afternoon. Maalox and Tums given EKG done . Estefany ORTIZ aware. Pt admits to feeling a little better after medication able to drink Ensure.
--- NOTE | 2025-10-30 17:04 | PTCARENOTE ---
Pt is day 1 post TAVR b/l groin site dressing c/d/i no evidence of bleeding or hematoma. Neuro intact and doppler distal pulses.
[2025-10-30] MEDS: LIPITOR 40 MG PO (17:17)
[2025-10-30 18:24] LABS: LDH 364 U/L (120-246); Total Protein 5.6 g/dl (6.3-8.2)
--- NOTE | 2025-10-30 21:35 | PTCARENOTE ---
Pt rec'd at change of shift awake,alert in controlled afib. Crackles noted in left base with dry cough. Scrotal edema and b/l thigh edema present. B/l groin drsg dry and intact. Assisted to bathroom for bm. Pt 's gait unsteady with walker. Pt passed
large formed larsen bm. Maalox given just after shift change for c/o upset stomach/heartburn. Pt ate 0 % of his dinner. Just stated ' I'm just not hungry'.
--- NOTE | 2025-10-30 21:49 | PTCARENOTE ---
Rec'd call from manager labJoana martínez stating they didn't receive pleural fluid from today so cannot run test. tests reordered in pts chart. House nursing sound technician supervisor Lobo contacted he will head to [facility] to see if specimen is in lab
[2025-10-30] MEDS: FLOMAX 0.8 MG PO (22:38)
[2025-10-30] MEDS: MELATONIN 20 MG PO (22:38)
--- NOTE | 2025-10-30 23:01 | PTCARENOTE ---
Per nursing supervisor word processing, no pleural specimens found.
[2025-10-31] VITALS (11 sets, daily range): BP systolic 86–112; BP diastolic 35–74; PULSE 95; O2SAT 100; BMI 22.6
[2025-10-31 05:02] LABS: Hematocrit 29.0 % (39.0-52.0); Hemoglobin 9.1 g/dL (13.0-18.0); Mean Corp Hgb Conc. 31.4 g/dL (33.0-37.0); Mean Corpuscular Volume 89.2 fL (80.0-94.0); Platelet Count 74 10^3/uL (130-400); Red Cell Dist. Width 15.0 % (11.5-14.5); Reticulocyte Count 3.5 % (0.4-2.8)
[2025-10-31 05:05] LABS: INR 1.67; PT 19.8 Sec (11.4-14.6)
[2025-10-31 05:06] LABS: APTT 49.0 Sec (23.4-35.0)
[2025-10-31 05:16] LABS: ALT (SGPT) 26 U/L (0-50); AST (SGOT) 37 U/L (17-59); Albumin 3.0 g/dl (3.5-5.0); Alkaline Phosphatase 74 U/L (38-126); Blood Urea Nitrogen 45 mg/dl (9-20); Calcium 8.3 mg/dl (8.4-10.2); Carbon Dioxide 30 mmol/L (22-30); Chloride 100 mmol/L (98-107); Estimated Creatinine Clearance 43 ml/min; Glucose 119 mg/dl (70-99); Potassium 3.7 mmol/L (3.5-5.1); Sodium 132 mmol/L (135-145); Total Protein 5.1 g/dl (6.3-8.2); eGFR > 60.00
--- NOTE | 2025-10-31 07:36 | W.PN.HOSP.TC ---
Today's Communication/Plan
-
SNF placement Sunday
Hold Hydroxychloroquine
See plan
Assessment / Plan
Assessment / Plan
Physical Exam
General: Other (89y M in no acute distress.)
HEENT: Other (Dry MM. Pos JVD.)
Respiratory: Other (Decreased BS at bases - R > L. Pos bibasilar rales. No wheezing.)
Cardiac: S1/S2, Irregular Rhythm and Murmur (III/ ROSA)
GI: Soft, Non Tender, Non Distended, Normal Bowel Sounds and Other (Pitting edema of lower abdominal wall, buttocks, proximal thighs / perineal area.)
Musculoskeletal: No Cyanosis and Other (LE edema - but most edema in dependent areas / buttocks, etc as noted above.)
Neuro: AO x 3
Assessment/Plan
89 y/o male with past medical history significant for ASCVD, severe aortic stenosis, HFrEF and recent admission for CHF who presented to [facility] ED complaining of fatigue and dyspnea. Patient was most recently admitted to from 10/20/25 - 10/23/25
for similar symptoms. He was treated with IV diuresis - though diuresis was limited somewhat by renal impairment / MICHAEL. He had previously been scheduled for TAVR on 11/12/25 and this was moved up to 10/29/25. Patient was discharged on 10/23/25 on
Lasix 60mg BID. He stated that he felt fairly well for a few days; however, his symptoms then quickly returned. He had been noticing gradual decline in urine output - despite compliance with Lasix. He had noted progressive fatigue > dyspnea. He
appreciated significant edema / swelling - mostly in the abdomen / buttocks / thighs as he spends much of his day in a recliner with his feet up.
His weight has 'trickled' up from 151 at discharge to 153 earlier on 10/26/25 - though his family noted that his weight several months ago was in the 130s. At the time of admission, patient denied any chest pain or palpitations.
Presentation with worsening shortness of breath, fatigue and decreased urine output, significant dependent edema (mostly in abdomen / buttocks / thighs)
Acute on Chronic HFrEF -- significantly reduced biventricular systolic function with an LVEF of 20 to 25% seen during surgery on 10/29/25
Biventricular cardiomyopathy both valvular and ischemic
Severe Aortic Stenosis status post TAVR on 10/29/25
Moderate Mitral Regurgitation
Moderate - Severe Tricuspid Regurgitation
Severe Pulmonary Hypertension
- Significant dependent edema on exam but only minimal weight gain from recent discharge.
- Diuresis limited by cardiorenal syndrome during prior admission.
- IV Lasix previously given, then stopped as patient appears to be getting more dry. Continue PO Lasix.
- Cardiology evaluation for additional recommendations.
- CT Surgery performed TAVR on 10/29/25 (today)
- Echo was done 10/21 with LVEF = 23% and valvular pathology as noted above.
- Echo from 10/30/25 with a pretty good size plural effusion. No significant pericardial effusion. TAVR look good peak/mean 5/3mmhg with trace AI.
Left-Sided Pleural Effusion
- Thoracentesis request ordered by cardiothoracic surgery CLINICAL IMMUNOLOGIST/PA on 10/30/25 removed 1500 cc
- I ordered labs for thoracentesis, but sample was already discarded by IR
- Monitor for re-occurrence of pleural effusion
Diarrhea
- Was constipated before, but since 10/30/25 evening has been having diarrhea
- Check stool studies
Atherosclerotic Cardiovascular Disease
- s/p LAD stent on 10/09. Continue Eliquis and Plavix.
- Continue statin therapy.
- No chest pain at present.
- Cardio eval as noted above.
Persistent Atrial Fibrillation / Flutter
- New diagnosis as of 08/19/25.
- Remains in flutter with variable AV block at present.
- Continue current medications including amiodarone
- Resumed Eliquis post TAVR
- Continue Amiodarone 200 mg daily.
- Digoxin added on 10/31/25 for better rate control -- target digoxin level will be 0.8 or less.
- Due to fluctuating renal function as well as significant upper extremity ecchymoses, and recent PCI, is on regimen of Plavix 75 mg daily and Eliquis 2.5 mg twice daily.
- Cardiology evaluation as noted above.
MICHAEL / Cardiorenal Syndrome
- Likely secondary to CHF / severe .
- SCr = 1.6---->1.5---->1.3---->1.1 compared to prior baseline of 1.1 and recent discharge value of 1.3.
- Diuresis efforts limited by progressive renal impairment.
- Hopefully hemodynamics will improve s/p TAVR allowing for more effective / tolerated diuresis.
- Follow SCr for changes.
Hyponatremia
- Stable
- Monitor BMP
Orthostatic Hypotension
Chronic Iron Deficiency Anemia
- Hgb relatively stable
- Iron studies suggest iron deficiency anemia
- Intravenous iron ordered and started on 10/27/25
Thrombocytopenia
- From aortic stenosis?
- No signs of bleeding or thrombosis
- Ordered PT/PTT/Reticulocytes/Bilirubin
- Retics high --> consulted hematology
Indigestion Symptoms
- Tums prn ordered
Rheumatoid Arthritis
- Stable. Hydroxychloroquine is contraindicated in heart failure. He has been receiving rituximab which was delayed last month. He is willing to hold hydroxychloroquine and possibly could get rituximab next month.
Collagenous Colitis
- Stable. Continue budesonide.
Chronic Constipation
- Continue bowel regimen. Miralax PRN.
BPH
- Stable. Continue tamsulosin.
- Bladder scan protocol.
Chronic Insomnia
- Continue melatonin.
Stage 1 Sacral Pressure Injury
-Wound care consult
DVT Prophylaxis: On Eliquis
Code Status: Full Code
Anticipated Discharge: > 48 hours
Subjective/Interval History
-
Date of Service: October 31, 2025
Patient was seen and examined. He reported diarrhea, family present in the room also said that patient has been having diarrhea.
Objective Data
-
Labs:
Laboratory Results
10/31/25
04:38
WBC 8.2
Hgb 9.1 L
Hct 29.0 L
Plt Count 74 L
PT 19.8 H
INR 1.67
APTT 49.0 H
Sodium 132 L
Potassium 3.7
Chloride 100
Carbon Dioxide 30
BUN 45 H
Creatinine 1.1
Glucose 119 H
Calcium 8.3 L
Total Bilirubin 0.9
AST 37
ALT 26
Alkaline Phosphatase 74
Vital Signs:
Vital Signs
Temp Pulse Resp BP Pulse Ox
97.7 F 86 22 102/53 95
10/31/25 04:00 10/31/25 05:00 10/31/25 04:00 10/31/25 04:48 10/31/25 04:00
I&O
10/30/25 10/31/25 11/01/25
06:59 06:59 06:59
Intake Total 984 / 984 200 / 200
Output Total 900 / 900 900 / 900
Balance 84 / 84 -700 / -700
[2025-10-31] MEDS: COLACE PO ×2 (08:39→19:52)
[2025-10-31] MEDS: LASIX 60 MG PO ×2 (08:39→15:56)
[2025-10-31] MEDS: THERAGRAN 1 TABLET PO (08:39)
[2025-10-31] MEDS: PLAQUENIL 200 MG PO (08:39)
[2025-10-31] MEDS: PACERONE 200 MG PO (08:40)
[2025-10-31] MEDS: ELIQUIS 2.5 MG PO ×2 (08:40→19:52)
[2025-10-31] MEDS: VITAMIN D3 (cholecalciferol) 25 MCG PO (08:40)
[2025-10-31] MEDS: PLAVIX 75 MG PO (08:40)
[2025-10-31] MEDS: KCL 40 MEQ PO ×3 (08:40→19:52)
[2025-10-31] MEDS: ENTOCORT EC 3 MG PO (08:51)
--- NOTE | 2025-10-31 10:25 | PTCARENOTE ---
received patient this am in bed, encouraged patient to get OOB to chair, patient stated, let's walk into BR and then chair. fall risk protocol followed, patient ambulated with walker and assist of 1 had liquid BM after eating breakfast this am,
returned to chair. monitor shows Afib, HR 90's, VSS. lung crouch diminished on RA, o2 sat 95%. patients right thigh, scrotum area edematous, Doppler pulses bilaterally. patients skin is very dry, hospitalist in room, will ordered cream for skin.
informed Dr. peace that lab called night RN telling her that they didn't receive the patients pleural fluid, please see night RN's note. band aid on patients back from site, ecchymotic. patient stated that he has had a poor appetite ever since
being in the hospital. Ensure given to patient.
--- NOTE | 2025-10-31 12:39 | W.PN.CARDCBS ---
Addendum entered and electronically signed by Danny Rollins MD 10/31/25 16:30:
He has some diarrhea,, unclear if med related.
Heart rate somewhat difficult to control, on low-dose amiodarone, will add low-dose digoxin for better rate control. Discussed with CT surgery.
Hydroxychloroquine is contraindicated in heart failure. He has been receiving rituximab which was delayed last month. He is willing to hold hydroxychloroquine and possibly could get rituximab next month.
With digoxin, will add some potassium supplementation. Target dig level will be 0.8 or less.
Addendum entered and electronically signed by Danny Rollins MD 10/31/25 15:18:
89-year-old man with severe aortic stenosis who underwent JORGE A with 29 mm Hannah LENNY 3 Resilia valve on October 29, 2025. Currently on amiodarone to assist with rate control.
PMH: Aortic stenosis, EF 20-25%, newly persistent atrial flutter/fibrillation, left bundle branch block, rheumatoid arthritis, PAD, right total hip arthroplasty
SH: Recently , had been living alone
Medications: Amiodarone 200 mg a day, atorvastatin 40 mg a day, Plaquenil 200 mg daily, melatonin, Flomax, Entocort, Plavix 75 mg a day, apixaban 2.5 mg daily, furosemide 60 mg a day, potassium 40 mEq twice daily, lisinopril 2.5 mg daily just added
103/57, pulse 98, goes into the 130s standing, respiratory rate 18, afebrile, weight is 67.5 kg, down 1 kg admission weight was 72 kg
Chest x-ray, elevated right hemidiaphragm, possible effusion, TAVR in place blunting left CPA
Hemoglobin 9.1, platelets 74, INR is 1.67, BUN and creatinine are 45 and 1.1 Potassium is 3.7, sodium is 132
ECG: Atrial flutter with rapid ventricular response, LVH with QRS widening and PVCs versus aberrant ventricular conduction
Impression:
Status post 29 mm Hannah LENNY 3 Resilia transcatheter aortic valve October 29, 2025
Nonischemic/ischemic cardiomyopathy
Acute on chronic HFrEF
LAD and circumflex PCI September 2025 with 50% RCA stenosis
Atypical atrial flutter/paroxysmal/persistent atrial fibrillation
Intermittent left bundle branch block
Probable PAD
Hyperlipidemia
Rheumatoid arthritis
Plan:
All things considered he is doing acceptably well, though he is tachycardic with borderline blood pressure and GDMT is limited.
Ideally with heart failure Plaquenil would be discontinued.
He is on oral furosemide, with borderline low potassium.
Digoxin might be helpful in better controlling heart rate. Will discuss with CT surgery
May be best to hold lisinopril given his marginal blood pressure.
Anticipate transfer to inpatient rehab on Sunday.
Original Note:
Today's Communication / Plan
-
Attempt GDMT with addition of lisinopril 2.5 mg daily with hold parameters
Continue Lasix 60 mg p.o. twice daily
Continue Eliquis 2.5 mg twice daily and Plavix 75 mg daily
Continue rate control with amiodarone
Case management consulted for cost analysis of SGLT2 inhibitor
Discharge planning and works with likely placement in SNF 11/02/2025 if bed available
Impression / Plan
-
.
PCP: Dr. Osman
Cardiology: Dr. Huntley
Impression:
Presentation 10/26/2025 with SOB
Acute on chronic HFrEF, proBNP 7620
Elevated troponin, suspected nonischemic myocardial injury, peaked 0.08
Low flow-Severe with mean gradient 35 mmHg by echo 06/26/2025
status post right transfemoral TAVR 29 mm Hannah LENNY valve 10/29/2025
Elective cardiac catheterization for PCI LAD and circumflex 10/09/[address] Gutierrez, radial approach
Successful stenting of the mid LAD with a 3.0 x 34 mm Ady stent that was postdilated to high-pressure's with a 3.5 mm noncompliant balloon. Successful stenting of the circumflex extending into a terminal obtuse marginal branch. SHOCKWAVE
lithotripsy was performed with a 3.0 x 12 mm balloon and was followed by placement of a 3.0 x 15 mm Ady stent that was implanted at nominal pressures and postdilated with a 3.25 mm noncompliant balloon
Biventricular cardiomyopathy with reduced ejection fraction, valvular and ischemic.
EF 20-25% with dilated RV and reduced RV systolic function 07/2025
Recent heart failure admission July 2025, September 2025
Atrial fibrillation, new diagnosis 08/19/2025
Eliquis anticoagulation
Left bundle branch block
PAD, suspected
Venous stasis dermatitis/ venous stasis
Hyperlipidemia
Rheumatoid arthritis, on Rituxan and hydroxychloroquine
Chronic anemia
Gait dysfunction
Echo 06/26/2025: EF 50%, severe with peak/mean 64/35 mmHg, mild to moderate MR, mild to moderate TR with PAP 54 mmHg
Echo 08/20/2025: EF 20 to 25% with global hypokinesis. Dilated right ventricle with mildly reduced RV systolic function. By atrial dilation. Heavily calcified aortic valve with reduced leaflet excursion.
Echo Oct 21 2025: Severely reduced left ventricular systolic function with estimated LVEF of 23% by Almeida's method. Dilated right ventricle with mildly reduced RV function. Severely dilated left atrium. Moderately dilated right atrium. Severe
aortic valve leaflet thickening with severe low-flow low gradient aortic stenosis in the setting of a severely reduced ejection fraction. Estimated peak and mean trans aortic gradients of 35 and 22 mmHg, respectively. Trace aortic regurgitation..
Moderate mitral valve regurgitation. Moderate to severe tricuspid regurgitation with severe pulmonary hypertension. Estimated pulmonary artery systolic pressure of 68 mmHg, assuming a right atrial pressure of 15 mmHg. Small pericardial effusion is
present. Moderate size pleural effusion is present., last EF Jul 2025 20-25%.
Plan:
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
- 2D echocardiogram during procedure with TAVR well-seated and mean gradient 2-3 mmHg with no AI or paravalvular leak. A pleural effusion was present.
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
-Limited 2D echocardiogram 10/30/2025 again demonstrated biventricular cardiomyopathy with an LVEF estimated 30 to 35%. TAVR was well-seated with peak/mean gradients 5/3 mmHg and trace AI. There is no significant pericardial effusion but a pleural
effusion was present
-Chest x-ray 10/30/2025 with bilateral interstitial and central pulmonary opacities and small to moderate bilateral pleural effusions. No pneumothorax.
- Pre-existing left bundle branch block with no significant bradycardia on telemetry.
- outpatient echocardiogram in 1 month as per TAVR protocol.
-Left pleural effusion
Patient underwent successful left thoracentesis, yielding 1500 cc clear yellow pleural fluid. Postprocedure x-ray without pneumothorax.
- Recommend follow-up chest x-ray in 1 -2 week to reassess for fluid accumulation
Mixed ischemic/valvular biventricular cardiomyopathy with LV ejection fraction preprocedure 20-25%, acute on chronic HFrEF, proBNP 7620 on admission
- Weight down at least 10 pounds since admission 10/26/2025
- Patient's blood pressures have been on the lower side and have limited medical therapy. Continue efforts to optimize goal-directed medical therapy
- Continue Lasix 60 mg p.o. twice daily
-Will try adding low dose lisinopril 2.5 mg daily (10/31) with hold parameters for systolic blood pressure less than 100
- Case management consult for SGLT2 inhibitor placed 10/31/2025
Patient with newer onset atrial fibrillation diagnosed in July 2025�remains in atrial fibrillation/flutter with controlled rates.
- Continue amiodarone 200 mg daily.
- Continue Eliquis 2.5 mg twice daily while also on Plavix status post recent PCI
- Consider outpatient consideration for cardioversion if he remains in atrial fibrillation/atrial flutter
Coronary artery disease status post successful stenting of the mid LAD and OM in July and September 2025
- No symptoms of chest pain.
- Continue Plavix/Eliquis
- Continue atorvastatin
- We will hold off addition of beta-shashi at this time given left bundle branch block and recent TAVR and consider use of carvedilol as an outpatient if conduction is stable
PT/OT with plan to discharge to SNF on 11/02 if bed available
Progress Note - Can Filler
Subjective
Date of Service: October 31, 2025
Patient seen and examined. Patient overall reports he is feeling well. Breathing has improved postthoracentesis. Does note some mild nausea.
Objective
Labs:
10/31/25 04:38
10/31/25 04:38
Labs
Hgb 9.1 g/dL (13.0-18.0) L 10/31/25 04:38
Hct 29.0 % (39.0-52.0) L 10/31/25 04:38
Plt Count 74 10^3/uL (130-400) L 10/31/25 04:38
PT 19.8 Sec (11.4-14.6) H 10/31/25 04:38
INR 1.67 10/31/25 04:38
APTT 49.0 Sec (23.4-35.0) H 10/31/25 04:38
Sodium 132 mmol/L (135-145) L 10/31/25 04:38
Potassium 3.7 mmol/L (3.5-5.1) 10/31/25 04:38
BUN 45 mg/dl (9-20) H 10/31/25 04:38
Creatinine 1.1 mg/dL (0.7-1.3) 10/31/25 04:38
Glucose 119 mg/dl (70-99) H 10/31/25 04:38
Vital Signs and I&O:
Vital Signs
Temp Pulse Resp BP Pulse Ox
98.1 F 93 18 105/45 96
10/31/25 12:02 10/31/25 10:00 10/31/25 12:02 10/31/25 09:48 10/31/25 12:02
Vital Signs
Temp Pulse Resp BP Pulse Ox
98.1 F 93 18 105/45 96
10/31/25 12:02 10/31/25 10:00 10/31/25 12:02 10/31/25 09:48 10/31/25 12:02
Intake & Output
10/29/25 10/30/25 10/31/25 11/01/25
06:59 06:59 06:59 06:59
Intake Total 720 / 720 984 / 984 200 / 200
Output Total 900 / 900 900 / 900 900 / 900
Balance -180 / -180 84 / 84 -700 / -700
Physical Exam
Physical Exam
GEN: No distress, awake, Ox3
HEENT: supple, anicteric, mmm
LUNGS: Crackles at bilateral bases otherwise CTA, no wheezes/rales
CV: Irregularly, S1/S2, no murmur, rub or gallop
ABD: soft, BS+, NT/ND
EXT: No edema, clubbing or cyanosis
NEURO: Gross non-focal
SKIN: No rash, warm, dry, pink
[2025-10-31] MEDS: ZESTRIL 2.5 MG PO (13:34)
[2025-10-31] MEDS: FERRLECIT 110 MG IV (13:39)
--- NOTE | 2025-10-31 13:47 | CON.ONC ---
Consultation
-
Date Consultation Requested: 10/31/25
Date Consultation Performed: 10/31/25
Requesting Provider: Dr. Hunter
Performing Provider: Dr. Caruso
Reason for Consultation: thrombocytopenia
Impression
Impression
chronic CHF
s/p TAVR
afib
thrombocytopenia - acute/ chronic
anemia - chronic
Plan
Plan
1. Thrombocytopenia - The patient appears to have a component of chronic thrombocytopenia - w/ baseline platelet count in the low 100,000 range. The etiology of his chronic thrombocytopenia may be multifactorial in nature. He does have a h/o RA
which can be associated w/ chronic thrombocytopenia and is on hydroxychloroquine, which can cause thrombocytopenia. It is also noted that had been on amiodarone prior to hospitalization, and remains on it currently, which can occasionally cause low
platelets.
Now in the hospital s/p TAVR, his platelet count has drifted down to 74,000 today. Platelet counts can drop s/p TAVR procedures, for multiple different reasons. At this time, w/o significant symptoms would continue to monitor CBC and platelet count
closely. Will check B12 and folic acid levels, as well as anti-platelet antibodies, to evaluate for potential underlying autoimmune component
2. Anemia - The patient also appears to have a chronic anemia w/ baseline hemoglobin in the 9-10g/dl range. This as well, may be multifactorial in nature, w/ RA as a potential contributing factor - anemia of chronic inflammation - as well as anemia
of chronic illness w/ chronic heart failure. Reticulocyte count was mildly elevated today, indicating some baseline hemolysis - potentially in setting of recent TAVR procedures. LDH was mildly elevated as well. Bilirubin was normal along w/ other
LFTs and creatinine. Check haptoglobin and SILVINO. Check iron studies w/ ferritin.
Will continue to follow with you.
Patient History
History of Present Illness
89y/o male seen in hematology consultation today regarding thrombocytopenia.
The patient hs a h/o CAD, severe aortic stenosis, CHF, who presented to the [facility] ED on 10/26/25 w/ increased SOB and fatigue. He had been scheduled for TAVR on 11/12; however, due to recurrent symptoms, his procedure was moved to 10/29. He
underwent TAVR on 10/29 w/ Dr. Dev Cameron.
He is now recovering post-operatively in the cardiac ICU.
His CBCs throughout recent hospitalization and the beginning of this current one, demonstrate chronic thrombocytopenia, w/ platelet count at apparent baseline in the low 100,000 range. His CBCs, now post-operatively, demostrated a slight drop in
platelet count to 86,000 yesterday and 74,000 today. His hemoglobin has remained stable in the 9-10g/dl range, which appears to be his baseline. A reticulocyte count was assessed post-operatively on 10/31 and was mildly elevated at 3.5%. His kidney
function remains near normal w/ creatinine of 1.1. LFTs are also normal today w/ bilirubin of 0.9. LDH was mildly elevated at 364. He is on eliquis.
Of note, he has a h/o RA, receiving rituximab as an outpt as well as on hydroxycholoquine.
Clinically, he denies any new bleeding - no blood in his stool or urine. No oral mucocutaneous oozing or epistaxis. No SOB at rest. He does note fatigue and lethargy. No petichial skin rash, fevers or chills.
Past-Medical/Surgical History
PMH:
CAD
severe - s/p TAVR - 10/29
CHF
paroxysmal afib
RA
chronic thrombocytopenia
chronic anemia
iron deficiency
Pulmonary Hypertension
Rheumatoid Arthritis
Collagenous Colitis
BPH
PSH:
PTCA with LAD Stent (10/09/25)
Right KISHAN
Carpal Tunnel Surgery
T&A
Social History
Tobacco: Former Smoker (Quit smoking in the 1950s.)
Alcohol: Occasional
Family History
Family History: Other (Father: CAD Mother: RA)
Allergies: PCN, sulfa, bactrim
Patient Medication
�Medication �Instructions �Recorded �Confirmed �Last Taken �Type
acetaminophen 650 mg 1,300 mg PO Q8HPRN PRN mild pain 08/19/25 10/26/25 10/26/25 History
tablet,extended release
alendronate 35 mg tablet 35 mg PO SA osteoporosis 08/19/25 10/26/25 10/24/25 History
budesonide 3 mg 3 mg PO DAILY Anti-Inflammatory 08/19/25 10/26/25 10/26/25 History
capsule,delayed,extended release
hydroxychloroquine 200 mg tablet 200 mg PO DAILY rheumatoid 08/19/25 10/26/25 10/26/25 History
(Plaquenil) arthritis
omega [id number]-fish oil 1,200 mg 1 cap PO BID Supplement 08/19/25 10/26/25 10/26/25 History
(144 mg-216 mg) capsule (Fish Oil)
rituximab 10 mg/mL See Rx Instructions .Route 08/19/25 10/26/25 05/15/25 History
concentrate,intravenous (Rituxan) .COMPLEX RA
therapeutic multivitamin 1 tab PO DAILY Supplement 08/19/25 10/26/25 10/26/25 History
cholecalciferol (vitamin D3) 25 25 mcg PO DAILY Supplement 09/01/25 10/26/25 10/26/25 History
mcg (1,000 unit) tablet (Vitamin
D3)
lifitegrast 5 % eye drops in a 1 drp BOTH EYES BID Eye Condition 09/01/25 10/26/25 10/26/25 History
dropperette (Xiidra)
amiodarone 200 mg tablet 200 mg PO DAILY Heart 10/02/25 10/26/25 10/26/25 History
Disease/Condition
tamsulosin 0.4 mg capsule 0.8 mg PO HS Urinary Issue 10/09/25 10/26/25 10/26/25 History
potassium 99 mg tablet 99 mg PO DAILY Supplement 10/20/25 10/26/25 10/26/25 History
apixaban 2.5 mg tablet (Eliquis) 2.5 mg PO BID Blood Clot 10/26/25 10/26/25 10/26/25 History
Prevention/Tx 5 mg
aspirin 81 mg chewable tablet 81 mg PO DAILY Heart 10/26/25 10/26/25 10/26/25 History
Disease/Condition
atorvastatin 40 mg tablet 40 mg PO QPM High Cholesterol 10/26/25 10/26/25 10/26/25 History
clopidogrel 75 mg tablet 75 mg PO DAILY Blood Clot 10/26/25 10/26/25 10/26/25 History
Prevention/Tx
docusate sodium 100 mg capsule 200 mg PO BID Constipation 10/26/25 10/26/25 10/26/25 History
(Colace)
furosemide 20 mg tablet 60 mg PO BID AT 0800,1600 Fluid 10/26/25 10/26/25 10/26/25 History
Retention/Swelling
melatonin 10 mg tablet 20 mg PO HS Sleep 10/26/25 10/26/25 10/25/25 History
Active Medications
Generic Name Dose Route Start Last Admin
Trade Name Freq PRN Reason Stop Dose Admin
Acetaminophen 650 mg 10/29/25 09:18 10/29/25 14:50
Acetaminophen 325 Mg Tablet PO 11/26/25 09:17 650 mg
Q4HPRN PRN Administration
LIRIANO, mild pain, or fever >101F
Al Hydrox/Mg Hydrox/Simethicone 30 ml 10/29/25 09:18 10/30/25 20:01
Mag/Al/Simethicone Suspension 30 Ml Cup PO 11/26/25 09:17 30 ml
Q4HPRN PRN Administration
heartburn
Amiodarone HCl 200 mg 10/27/25 08:00 10/31/25 08:40
Amiodarone 200 Mg Tablet PO 11/24/25 07:59 200 mg
DAILY CHAY Administration
Apixaban 2.5 mg 10/30/25 08:00 10/31/25 08:40
Apixaban (Eliquis) 2.5 Mg Tablet PO 11/27/25 07:59 2.5 mg
BID CHAY Administration
Artificial Tears 1 drops 10/29/25 14:48
Artificial Tears Pf (Refresh) 10 Drop Droperette OPHTH 11/26/25 14:47
QIDPRN PRN
DRY EYES
Atorvastatin Calcium 40 mg 10/27/25 18:00 10/30/25 17:17
Atorvastatin (Lipitor) 40 Mg Tablet PO 11/24/25 17:59 40 mg
QPM CHAY Administration
Budesonide 3 mg 10/27/25 08:00 10/31/25 08:51
Budesonide 3 Mg Capsule PO 11/24/25 07:59 3 mg
DAILY CHAY Administration
Calcium Carbonate 200 mg 10/28/25 10:37 10/30/25 14:19
Calcium Antacid 200 Mg (Calcium Carbonate 500 Mg) Chew Tablet PO 200 mg
Q6HPRN PRN Administration
Indigestion
Cholecalciferol 25 mcg 10/30/25 08:00 10/31/25 08:40
Cholecalciferol (Vitamin D3) 25 Mcg Tablet (1,000 Units) PO 11/27/25 07:59 25 mcg
DAILY CHAY Administration
Clopidogrel Bisulfate 75 mg 10/30/25 08:00 10/31/25 08:40
Clopidogrel 75 Mg Tablet PO 11/27/25 07:59 75 mg
DAILY CHAY Administration
Docusate Sodium 200 mg 10/27/25 00:13 10/31/25 08:39
Docusate Sodium 100 Mg Capsule PO 11/24/25 00:12 Not Given
BID CHAY
Furosemide 60 mg 10/30/25 08:00 10/31/25 08:39
Furosemide 20 Mg Tablet PO 11/27/25 07:59 60 mg
BID AT 0800,1600 CHAY Administration
Hydroxychloroquine Sulfate 200 mg 10/27/25 08:00 10/31/25 08:39
Hydroxychloroquine 200 Mg Tablet PO 11/24/25 07:59 200 mg
DAILY CHAY Administration
Ferric Sodium Gluconate 110 mls @ 110 mls/hr 10/27/25 15:35 10/31/25 13:39
Complex 125 mg/ Sodium IV 10/31/25 14:59 110 mls
Chloride DAILY@1400 CHAY Administration
Lisinopril 2.5 mg 10/31/25 13:00 10/31/25 13:34
Lisinopril 2.5 Mg Tablet PO 11/28/25 12:59 2.5 mg
DAILY CHAY Administration
Magnesium Hydroxide 30 ml 10/29/25 09:18
Milk Of Magnesia 30 Ml Cup PO 11/26/25 09:17
BIDPRN PRN
constipation
Melatonin 20 mg 10/27/25 22:00 10/30/25 22:38
Melatonin 5 Mg Tablet PO 11/24/25 21:59 20 mg
HS CHAY Administration
Multivitamins Therapeutic 1 tablet 10/30/25 08:00 10/31/25 08:39
Multivitamin Tablet PO 11/27/25 07:59 1 tablet
DAILY CHAY Administration
Polyethylene Glycol 17 grams 10/27/25 00:13
Polyethylene Glycol Powder 17 Grams Packet PO 11/24/25 00:12
DAILY PRN
Constipation
Potassium Chloride 40 meq 10/31/25 08:00 10/31/25 08:40
Potassium Chloride 20 Meq Extended Release Tablet PO 10/31/25 20:01 40 meq
BID CHAY Administration
Sodium Chloride 0 flush 10/27/25 01:00 10/28/25 17:32
Sodium Chloride 0.9% (Flush) Syringe IV 11/24/25 00:59 2 flush
PER PROTOCOL CHAY Administration
Tamsulosin HCl 0.8 mg 10/27/25 00:13 10/30/25 22:38
Tamsulosin 0.4 Mg Capsule PO 11/24/25 00:12 0.8 mg
HS CHAY Administration
Review of Systems
-
A ROS was performed w/ pertinent findings as per HPI.
Physical Exam
-
General: Well Developed and No Apparent Distress
HEENT: Negative Jaundice
Cardiology: Other (irregular)
Pulmonary: Other (decreased breath sounds at bases)
GI: Soft
Neurology: Non Focal
Labs
Lab Results
WBC 8.2 10^3/uL (4.8-10.8) 10/31/25 04:38
RBC 3.25 10^6/uL (4.70-6.10) L 10/31/25 04:38
Hgb 9.1 g/dL (13.0-18.0) L 10/31/25 04:38
Hct 29.0 % (39.0-52.0) L 10/31/25 04:38
MCV 89.2 fL (80.0-94.0) 10/31/25 04:38
MCH 28.0 pg (27.0-31.0) 10/31/25 04:38
MCHC 31.4 g/dL (33.0-37.0) L 10/31/25 04:38
RDW 15.0 % (11.5-14.5) H 10/31/25 04:38
Plt Count 74 10^3/uL (130-400) L 10/31/25 04:38
MPV 10.7 fL (7.4-10.4) H 10/31/25 04:38
Abs Immat Gran (auto) 0.0 10^3/uL (0-0.05) 10/26/25 17:39
Absolute Neuts (auto) 6.7 10^3/uL (1.4-6.5) H 10/26/25 17:39
Absolute Lymphs (auto) 0.7 10^3/uL (1.2-3.4) L 10/26/25 17:39
Absolute Monos (auto) 0.9 10^3/uL (0.1-0.6) H 10/26/25 17:39
Absolute Eos (auto) 0.3 10^3/uL (0-0.7) 10/26/25 17:39
Absolute Basos (auto) 0.0 10^3/uL (0-0.2) 10/26/25 17:39
Immature Gran % 0.2 % (0-0.5) 10/26/25 17:39
Neutrophils % 77.7 % (42.2-75.2) H 10/26/25 17:39
Lymphocytes % 7.6 % (20.5-51.1) L 10/26/25 17:39
Monocytes % 11.0 % (1.7-9.3) H 10/26/25 17:39
Eosinophils % 3.0 % (0-6) 10/26/25 17:39
Basophils % 0.5 % (0-2) 10/26/25 17:39
Creatinine 1.1 mg/dL (0.7-1.3) 10/31/25 04:38
Vital Signs
Vital Signs
Temp Pulse Resp BP Pulse Ox
98.1 F 98 18 103/57 96
10/31/25 12:02 10/31/25 13:34 10/31/25 12:02 10/31/25 13:34 10/31/25 12:02
--- NOTE | 2025-10-31 14:58 | PTCARENOTE ---
patient continues to have diarrhea especially after he attempts to eat. Dr. John Rollins aware.
[2025-10-31 15:15] LABS: Iron 81 ug/dl (49-181)
[2025-10-31 15:24] LABS: Total Iron Binding Capacity 315 ug/dl (261-462)
--- NOTE | 2025-10-31 15:39 | PTCARENOTE ---
labs drawn and sent to labs as ordered.
[2025-10-31 15:50] LABS: Ferritin 251.0 ng/ml (17.9-464.0)
--- NOTE | 2025-10-31 15:57 | PTCARENOTE ---
ambulated to BR with walker and assist x 1, patient had another liquid BM, sent to lab as ordered. patient returned back from BR, o2 sat on RA 88%, o2 applied, 2 LNC o2 sat 100%.
[2025-10-31 16:21] LABS: Folate > 20.0 ng/ml (2.76-20); Vitamin B12 811 pg/ml (239-931)
[2025-10-31] MEDS: LIPITOR 40 MG PO (17:10)
--- NOTE | 2025-10-31 17:11 | PTCARENOTE ---
k 3.7 supplemented as ordered.
[2025-10-31] MEDS: LANOXIN 250 MCG IV (20:00)
--- NOTE | 2025-10-31 21:11 | PTCARENOTE ---
Pt rec'd at change of shift worried about having more bm's. none so far this shift. Yunior held.
[2025-10-31] MEDS: FLOMAX 0.8 MG PO (22:22)
[2025-10-31] MEDS: MELATONIN 20 MG PO (22:23)
[2025-11-01] VITALS (13 sets, daily range): BP systolic 71–123; BP diastolic 41–57; PULSE 90; BMI 23.0
[2025-11-01 05:19] LABS: Blood Urea Nitrogen 40 mg/dl (9-20); Calcium 8.1 mg/dl (8.4-10.2); Carbon Dioxide 28 mmol/L (22-30); Chloride 102 mmol/L (98-107); Estimated Creatinine Clearance 43 ml/min; Glucose 106 mg/dl (70-99); Magnesium 2.2 mg/dl (1.6-2.3); Potassium 4.5 mmol/L (3.5-5.1); Sodium 133 mmol/L (135-145); eGFR > 60.00
[2025-11-01 05:34] LABS: Hematocrit 26.9 % (39.0-52.0); Hemoglobin 8.4 g/dL (13.0-18.0); Mean Corp Hgb Conc. 31.2 g/dL (33.0-37.0); Mean Corpuscular Volume 91.5 fL (80.0-94.0); Platelet Count 65 10^3/uL (130-400); Red Cell Dist. Width 15.4 % (11.5-14.5)
--- NOTE | 2025-11-01 05:52 | PTCARENOTE ---
Pt oob at this time after complete bed bath. Sinus on telemetry. No bm's during the night
[2025-11-01] MEDS: COLACE PO ×2 (08:22→20:07)
[2025-11-01] MEDS: KCL 20 MEQ PO (08:23)
[2025-11-01] MEDS: THERAGRAN 1 TABLET PO (08:23)
[2025-11-01] MEDS: LASIX 60 MG PO ×2 (08:23→16:19)
[2025-11-01] MEDS: PACERONE 200 MG PO (08:23)
[2025-11-01] MEDS: VITAMIN D3 (cholecalciferol) 25 MCG PO (08:23)
[2025-11-01] MEDS: ENTOCORT EC 3 MG PO (08:35)
--- NOTE | 2025-11-01 09:06 | PTCARENOTE ---
received patient this am sitting up in chair, voices no complaints. monitor shows Afib, BP low, took in both arms. patient ate breakfast, hoping he doesn't have loose stool today. edema still noted in right thigh, hips and scrotum. Doppler posterior
pedals. lungs are clear on RA o2 sat 97%. Dr. John Rollins notified of am labs, will hold Plavix and Eliquis until seen by him.
--- NOTE | 2025-11-01 09:17 | W.PN.CARDCBS ---
Today's Communication / Plan
-
Thrombocytopenia, anemia on Eliquis and clopidogrel, LDH is elevated, being evaluated for hemolysis
Status post TAVR, PCI of LAD and OM September 2025
If need to go to a single agent for anticoagulation/antiplatelets would favor discontinuation of clopidogrel
Otherwise volume status, heart rate seem good
Impression / Plan
-
.
PCP: Dr. Osman
Cardiology: Dr. Huntley
Impression:
Presentation 10/26/2025 with SOB
Acute on chronic HFrEF, proBNP 7620
Elevated troponin, suspected nonischemic myocardial injury, peaked 0.08
Low flow-Severe with mean gradient 35 mmHg by echo 06/26/2025
status post right transfemoral TAVR 29 mm Hannah LENNY valve 10/29/2025
Elective cardiac catheterization for PCI LAD and circumflex 10/09/[address] Gutierrez, radial approach
Successful stenting of the mid LAD with a 3.0 x 34 mm Ady stent that was postdilated to high-pressure's with a 3.5 mm noncompliant balloon. Successful stenting of the circumflex extending into a terminal obtuse marginal branch. SHOCKWAVE
lithotripsy was performed with a 3.0 x 12 mm balloon and was followed by placement of a 3.0 x 15 mm Farwell stent that was implanted at nominal pressures and postdilated with a 3.25 mm noncompliant balloon
Biventricular cardiomyopathy with reduced ejection fraction, valvular and ischemic.
EF 20-25% with dilated RV and reduced RV systolic function 07/2025
Recent heart failure admission July 2025, September 2025
Atrial fibrillation, new diagnosis 08/19/2025
Eliquis anticoagulation
Left bundle branch block
PAD, suspected
Venous stasis dermatitis/ venous stasis
Hyperlipidemia
Rheumatoid arthritis, on Rituxan and hydroxychloroquine
Chronic anemia
Gait dysfunction
Echo 06/26/2025: EF 50%, severe with peak/mean 64/35 mmHg, mild to moderate MR, mild to moderate TR with PAP 54 mmHg
Echo 08/20/2025: EF 20 to 25% with global hypokinesis. Dilated right ventricle with mildly reduced RV systolic function. By atrial dilation. Heavily calcified aortic valve with reduced leaflet excursion.
Echo Oct 21 2025: Severely reduced left ventricular systolic function with estimated LVEF of 23% by Almeida's method. Dilated right ventricle with mildly reduced RV function. Severely dilated left atrium. Moderately dilated right atrium. Severe
aortic valve leaflet thickening with severe low-flow low gradient aortic stenosis in the setting of a severely reduced ejection fraction. Estimated peak and mean trans aortic gradients of 35 and 22 mmHg, respectively. Trace aortic regurgitation..
Moderate mitral valve regurgitation. Moderate to severe tricuspid regurgitation with severe pulmonary hypertension. Estimated pulmonary artery systolic pressure of 68 mmHg, assuming a right atrial pressure of 15 mmHg. Small pericardial effusion is
present. Moderate size pleural effusion is present., last EF Jul 2025 20-25%.
Echo 10/30/2025: EF 30-35%, dilated hypoakinetic RV, pulmonary artery systolic pressure is 52 mmHg, 29 mm Hannah LENNY valve, peak/mean gradients are 5 and 3. Trace aortic regurgitation, mild MR, moderate TR, pleural effusion
Plan:
From a heart failure standpoint he looks improved. Lungs are relatively clear, neck veins are relatively flat, no edema. Not much evidence of exam on effusion
Heart rate seems controlled on amiodarone with recent addition of digoxin. He will need to follow-up dig level and rehab.
Anemia and thrombocytopenia are the major issues at present. He is on Eliquis and Plavix, status post TAVR earlier this stay with LAD and OM PCI in September. Being evaluated for autoimmune hemolysis. Transcatheter aortic valve could also impart
be responsible for hemolysis. Haptoglobin is pending.
Unclear that we will be able to continue antiplatelets and DOAC. If a single agent is required, I would favor discontinuation of Plavix and continuing Eliquis. For now, continue both, await further hematologic evaluation.
Patient's complaints of diarrhea has resolved.
His echocardiogram from October 30 is satisfactory.
Patient's blood pressure has been on the lower side and have limited medical therapy. Continue efforts to optimize goal-directed medical therapy
If stable, possible transfer to rehab in 24 to 48 hours
Progress Note - Family Practitioner
Subjective
Date of Service: November 01, 2025:
89-year-old man with severe aortic stenosis who underwent JORGE A with 29 mm Hannah LENNY 3 Resilia valve on October 29, 2025. Currently on amiodarone to assist with rate control.
PMH: Aortic stenosis, EF 20-25%, newly persistent atrial flutter/fibrillation, left bundle branch block, rheumatoid arthritis, PAD, right total hip arthroplasty
SH: Recently , had been living aloneCurrent medications: Amiodarone 200 mg a day, atorvastatin 40 mg a day, hydroxychloroquine has been stopped, tamsulosin 0.8 mg a day, budesonide, clopidogrel 75 mg a day, apixaban 2.5 mg twice daily,
furosemide 60 mg p.o. twice daily, multivitamins, potassium 20 mill equivalents daily, digoxin 62.5 mcg daily
100/43, pulse 80s, respiratory rate 16, afebrile, sats 96%, no complaints says diarrhea has resolved, lungs are clear neck veins are okay, irregular rate and rhythm soft systolic murmur no edema
Hemoglobin 8.4, had been 9.1, platelets are 65, BUN and creatinine are 40 and 1.1. Potassium is 4.5, sodium is 133, magnesium is 2.2, LDH was 364. Haptoglobin pending
Telemetry: Atrial tach/flutter rate is fairly well-controlled at present
Objective
Labs:
11/01/25 04:41
11/01/25 04:41
Labs
Hgb 8.4 g/dL (13.0-18.0) L 11/01/25 04:41
Hct 26.9 % (39.0-52.0) L 11/01/25 04:41
Plt Count 65 10^3/uL (130-400) L 11/01/25 04:41
PT 19.8 Sec (11.4-14.6) H 10/31/25 04:38
INR 1.67 10/31/25 04:38
APTT 49.0 Sec (23.4-35.0) H 10/31/25 04:38
Sodium 133 mmol/L (135-145) L 11/01/25 04:41
Potassium 4.5 mmol/L (3.5-5.1) 11/01/25 04:41
BUN 40 mg/dl (9-20) H 11/01/25 04:41
Creatinine 1.1 mg/dL (0.7-1.3) 11/01/25 04:41
Glucose 106 mg/dl (70-99) H 11/01/25 04:41
Vital Signs and I&O:
Vital Signs
Temp Pulse Resp BP Pulse Ox
36.8 C 83 16 100/43 96
11/01/25 08:16 11/01/25 08:23 11/01/25 08:16 11/01/25 08:23 11/01/25 08:16
Vital Signs
Temp Pulse Resp BP Pulse Ox
36.8 C 83 16 100/43 96
11/01/25 08:16 11/01/25 08:23 11/01/25 08:16 11/01/25 08:23 11/01/25 08:16
Intake & Output
10/30/25 10/31/25 11/01/25 11/02/25
07:59 07:59 07:59 07:59
Intake Total 984 / 984 200 / 200 310 / 310
Output Total 1050 / 1050 750 / 750 750 / 750
Balance -66 / -66 -550 / -550 -440 / -440
Physical Exam
Physical Exam
See above
--- NOTE | 2025-11-01 09:17 | W.PN.HOSP.TC ---
Today's Communication/Plan
-
SNF tomorrow
See plan
Assessment / Plan
Assessment / Plan
Physical Exam
General: Other (89y M in no acute distress.)
HEENT: Other (Dry MM. Pos JVD.)
Respiratory: Other (Decreased BS at bases - R > L. Pos bibasilar rales. No wheezing.)
Cardiac: S1/S2, Irregular Rhythm and Murmur (III/ ROSA)
GI: Soft, Non Tender, Non Distended, Normal Bowel Sounds and Other (Pitting edema of lower abdominal wall, buttocks, proximal thighs / perineal area.)
Musculoskeletal: No Cyanosis and Other (LE edema - but most edema in dependent areas / buttocks, etc as noted above.)
Neuro: AO x 3
Assessment/Plan
89 y/o male with past medical history significant for ASCVD, severe aortic stenosis, HFrEF and recent admission for CHF who presented to [facility] ED complaining of fatigue and dyspnea. Patient was most recently admitted to from 10/20/25 - 10/23/25
for similar symptoms. He was treated with IV diuresis - though diuresis was limited somewhat by renal impairment / MICHAEL. He had previously been scheduled for TAVR on 11/12/25 and this was moved up to 10/29/25. Patient was discharged on 10/23/25 on
Lasix 60mg BID. He stated that he felt fairly well for a few days; however, his symptoms then quickly returned. He had been noticing gradual decline in urine output - despite compliance with Lasix. He had noted progressive fatigue > dyspnea. He
appreciated significant edema / swelling - mostly in the abdomen / buttocks / thighs as he spends much of his day in a recliner with his feet up.
His weight has 'trickled' up from 151 at discharge to 153 earlier on 10/26/25 - though his family noted that his weight several months ago was in the 130s. At the time of admission, patient denied any chest pain or palpitations.
Presentation with worsening shortness of breath, fatigue and decreased urine output, significant dependent edema (mostly in abdomen / buttocks / thighs)
Acute on Chronic HFrEF -- significantly reduced biventricular systolic function with an LVEF of 20 to 25% seen during surgery on 10/29/25
Biventricular cardiomyopathy both valvular and ischemic
Severe Aortic Stenosis status post TAVR on 10/29/25
Moderate Mitral Regurgitation
Moderate - Severe Tricuspid Regurgitation
Severe Pulmonary Hypertension
- Significant dependent edema on exam but only minimal weight gain from recent discharge.
- Diuresis limited by cardiorenal syndrome during prior admission.
- IV Lasix previously given, then stopped as patient appears to be getting more dry. Continue PO Lasix.
- Cardiology evaluation for additional recommendations.
- CT Surgery performed TAVR on 10/29/25
- Echo was done 10/21 with LVEF = 23% and valvular pathology as noted above.
- Echo from 10/30/25 with a pretty good size plural effusion. No significant pericardial effusion. TAVR look good peak/mean 5/3mmhg with trace AI.
Left-Sided Pleural Effusion
- Thoracentesis request ordered by cardiothoracic surgery [facility] on 10/30/25 removed 1500 cc
- I ordered labs for thoracentesis, but sample was already discarded by IR
- Monitor for re-occurrence of pleural effusion
Diarrhea
- Was constipated before, but since 10/30/25 evening has been having diarrhea
- Stool studies negative for C. diff, other stool studies pending
Atherosclerotic Cardiovascular Disease
- s/p LAD stent on 10/09. Continue Eliquis and Plavix -- but if, for example given anemia/thrombocytopenia/bleeding, if need to go to a single agent for anticoagulation/antiplatelets would favor
discontinuation of clopidogrel
- Continue statin therapy.
- No chest pain at present.
- Cardio eval as noted above.
Persistent Atrial Fibrillation / Flutter
- New diagnosis as of 08/19/25.
- Remains in flutter with variable AV block at present.
- Continue current medications including amiodarone
- Resumed Eliquis post TAVR
- Continue Amiodarone 200 mg daily.
- Digoxin added on 10/31/25 for better rate control -- target digoxin level will be 0.8 or less.
- Follow-up Digoxin level (being ordered by cardiology)
- Cardiology evaluation as noted above.
MICHAEL / Cardiorenal Syndrome
- Likely secondary to CHF / severe .
- SCr = 1.6---->1.5---->1.3---->1.1 compared to prior baseline of 1.1 and recent discharge value of 1.3.
- Diuresis efforts limited by progressive renal impairment.
- Hopefully hemodynamics will improve s/p TAVR allowing for more effective / tolerated diuresis.
- Follow SCr for changes.
Hyponatremia
- Stable
- Monitor BMP
Orthostatic Hypotension
Chronic Iron Deficiency Anemia
- Hgb decreasing
- Etiology of chronic anemia may be multifactorial - w/ RA as a potential contributing factor - anemia of chronic inflammation - as well as anemia of chronic illness w/ chronic heart failure
- Iron studies suggested iron deficiency anemia --> IV iron given --> repeat iron studies do not show iron deficiency
- Reticulocyte count was mildly elevated, indicating some possible baseline hemolysis - potentially in setting of recent TAVR procedures
- SILVINO - was negative indicating non-immune etiology; -total bili was normal - LDH only mildly elevated
- Haptoglobin pending
Thrombocytopenia - has an element of chronic thrombocytopenia w/ baseline platelet count in the low 100,000 range - in the setting of RA -on hydroxychloroquine - as well as other possible medication effects - amiodarone
- From aortic stenosis/TAVR?
- No signs of bleeding or thrombosis
- Ordered PT/PTT/Reticulocytes/Bilirubin
- Retics high --> consulted hematology
- B12/ folic acid levels normal
- anti-platelet antibody pending - to evaluate for potential underlying autoimmune component w/ h/o RA
- coags mildly prolonged - check fibrinogen
Indigestion Symptoms
- Tums prn ordered
Rheumatoid Arthritis
- Stable. Hydroxychloroquine is contraindicated in heart failure. He has been receiving rituximab which was delayed last month. He is willing to hold hydroxychloroquine and possibly could get rituximab next month.
Collagenous Colitis
- Stable. Continue budesonide.
Chronic Constipation
- Continue bowel regimen. Miralax PRN.
BPH
- Stable. Continue tamsulosin.
- Bladder scan protocol.
Chronic Insomnia
- Continue melatonin.
Stage 1 Sacral Pressure Injury
-Wound care consult
DVT Prophylaxis: On Eliquis
Code Status: Full Code
Anticipated Discharge: Within 24 hours
Subjective/Interval History
-
Date of Service: November 01, 2025
Patient was seen and examined. He denied any new symptoms or complaints.
Objective Data
-
Labs:
Laboratory Results
11/01/25
04:41
WBC 7.2
Hgb 8.4 L
Hct 26.9 L
Plt Count 65 L
Sodium 133 L
Potassium 4.5
Chloride 102
Carbon Dioxide 28
BUN 40 H
Creatinine 1.1
Glucose 106 H
Calcium 8.1 L
Vital Signs:
Vital Signs
Temp Pulse Resp BP Pulse Ox
98.2 F 83 16 100/43 96
11/01/25 08:16 11/01/25 08:23 11/01/25 08:16 11/01/25 08:23 11/01/25 08:16
I&O
10/31/25 11/01/25 11/02/25
06:59 06:59 06:59
Intake Total 200 / 200 310 / 310
Output Total 900 / 900 750 / 750
Balance -700 / -700 -440 / -440
[2025-11-01] MEDS: PLAVIX 75 MG PO (12:31)
[2025-11-01] MEDS: ELIQUIS 2.5 MG PO ×2 (12:31→20:12)
[2025-11-01] MEDS: LANOXIN 62.5 MCG PO (12:33)
--- NOTE | 2025-11-01 14:01 | W.PN.ONC ---
Today's Communication / Plan
-
acute/chronic thrombocytopenia - h/o RA - now post TAVR
plts holding 65,000 - no apparent bleeding
check fibrinogen
follow CBC
Impression
Impression
chronic CHF
s/p TAVR
afib
thrombocytopenia - acute/ chronic
anemia - chronic
Plan
Plan
1. Thrombocytopenia - acute/ chronic - potentially multifactorial
-has an element of chronic thrombocytopenia w/ baseline platelet count in the low 100,000 range - in the setting of RA -on hydroxychloroquine - as well as other possible medication effects - amiodarone
-now s/p TAVR - plts have drifted down to 65,000 today
-no apparent bleeding
-B12/ folic acid levels normal
-anti-platelet antibody pending - to evaluate for potential underlying autoimmune component w/ h/o RA
-coags mildly prolonged - check fibrinogen
2. Anemia - acute / chronic anemia w/ baseline hemoglobin in the 9-10g/dl range
-etiology of chronic anemia may be multifactorial as well - w/ RA as a potential contributing factor - anemia of chronic inflammation - as well as anemia of chronic illness w/ chronic heart failure
-reticulocyte count was mildly elevated today, indicating some possible baseline hemolysis - potentially in setting of recent TAVR procedures
-SILVINO - was negative indicating non-immune etiology
-total bili was normal - LDH only mildly elevated
-haptoglobin pending
-iron studies were not indicative of iron deficiency
Subjective/Objective
Subjective/Objective
feels better, no apparent bleeding - no SOB or chest pain
Vital Signs:
Vital Signs
Temp Pulse Resp BP Pulse Ox
98.2 F 82 16 100/43 96
11/01/25 08:16 11/01/25 12:33 11/01/25 08:16 11/01/25 08:23 11/01/25 08:30
Lab Results:
Laboratory Data
WBC 7.2 10^3/uL (4.8-10.8) 11/01/25 04:41
Hgb 8.4 g/dL (13.0-18.0) L 11/01/25 04:41
Plt Count 65 10^3/uL (130-400) L 11/01/25 04:41
PT 19.8 Sec (11.4-14.6) H 10/31/25 04:38
INR 1.67 10/31/25 04:38
APTT 49.0 Sec (23.4-35.0) H 10/31/25 04:38
eGFR > 60.00 11/01/25 04:41
Exam: unchanged
Orders
Orders
Orders From Last 24 Hours
10/31/25 15:18
SILVINO Polyspecific GEL Routine
Platelet Assoc Ab, Direct [S] Routine
[2025-11-01 15:55] LABS: Fibrinogen 367 MG/DL (199-459)
[2025-11-01] MEDS: LIPITOR 40 MG PO (17:19)
[2025-11-01] MEDS: FLOMAX 0.8 MG PO (22:23)
[2025-11-01] MEDS: MELATONIN 20 MG PO (22:24)
[2025-11-02] VITALS (9 sets, daily range): BP systolic 98–120; BP diastolic 44–66; PULSE 77–86; O2SAT 97; BMI 22.8
[2025-11-02 04:07] LABS: Hematocrit 29.4 % (39.0-52.0); Hemoglobin 9.0 g/dL (13.0-18.0); Mean Corp Hgb Conc. 30.6 g/dL (33.0-37.0); Mean Corpuscular Volume 91.6 fL (80.0-94.0); Platelet Count 64 10^3/uL (130-400); Red Cell Dist. Width 16.0 % (11.5-14.5)
[2025-11-02 04:13] LABS: Blood Urea Nitrogen 37 mg/dl (9-20); Calcium 8.3 mg/dl (8.4-10.2); Carbon Dioxide 29 mmol/L (22-30); Chloride 101 mmol/L (98-107); Estimated Creatinine Clearance 44 ml/min; Glucose 103 mg/dl (70-99); Potassium 4.6 mmol/L (3.5-5.1); Sodium 133 mmol/L (135-145); eGFR > 60.00
--- NOTE | 2025-11-02 04:25 | PTCARENOTE ---
Pt. had no loose stools overnight, VSS, A-fib rate mostly 80's on the monitor. TAVR groin sites intact & WNL, Doppler pulses present. Pt. resting in bed overnight, very pleasant, hoping for discharge overnight.
--- NOTE | 2025-11-02 04:33 | PTCARENOTE ---
Pt. had no loose stools overnight, VSS, A-fib rate mostly 80's on the monitor. TAVR groin sites intact & WNL, Doppler pulses present. Pt. resting in bed, very pleasant, hoping for discharge later today.
--- NOTE | 2025-11-02 07:53 | W.PN.HOSP.TC ---
Today's Communication/Plan
-
see plan
Assessment / Plan
Assessment / Plan
Admission summary: 89 y/o male with past medical history significant for CAD, severe , HFrEF and recent admission for CHF who presented to [facility] ED complaining of fatigue and dyspnea. Patient was most recently admitted to from 10/20/25 -
10/23/25 for similar symptoms. He was treated with IV diuresis - though diuresis was limited somewhat by renal impairment / MICHAEL. He had previously been scheduled for TAVR on 11/12/25 and this was moved up to 10/29/25. Patient was discharged on
10/23/25 on Lasix 60mg BID. He stated that he felt fairly well for a few days; however, his symptoms then quickly returned. He had been noticing gradual decline in urine output - despite compliance with Lasix. He had noted progressive fatigue >
dyspnea. He appreciated significant edema / swelling - mostly in the abdomen / buttocks / thighs as he spends much of his day in a recliner with his feet up.
His weight has 'trickled' up from 151 at discharge to 153 earlier on 10/26/25 - though his family noted that his weight several months ago was in the 130s. At the time of admission, patient denied any chest pain or palpitations.
Gen: NAD, Awake and alert
Eyes: EOMI, PERRLA, no scleral icterus.
Neck: supple.
CV: RRR, +S1/S2, no m/r/g.
Resp: CTAB, no rales, wheezes, or rhonchi.
Abd: +BS, soft, NT, ND
Skin: No rashes. trace LE edema
Neuro: CN 2-12 intact, non-focal.
Psych: Normal mood and affect.
Echo 10/30:
1. Limited follow-up study s/p TAVR implant 10/29/2025.
2. Severely reduced left ventricular systolic function, left ventricular ejection fraction estimated by Almeida's method 30-35%.
3. Dilated hypokinetic right ventricle with severe pulmonary hypertension. Estimated pulmonary artery systolic pressure 52 mmHg assuming a right atrial pressure of 10 mmHg. IVC is dilated and does not collapse with inspiration.
4. Hannah Shanel 29mm TAVR appears well seated . Peak/mean gradients across the aortic valve are 5/3mmHg respectively. Trace aortic valve regurgitation seen.
5. Mild mitral regurgitation. Moderate tricuspid regurgitation.
6. No significant pericardial effusion. Pleural effusion present.
7. Compared to prior limited study immediately post TAVR implant 10/29/2025, left ventricular ejection fraction previously estimated 20-25%. Previous TAVR peak/mean gradients 5/3 mmHg with no aortic regurgitation. Pleural effusion previously present.
Acute on Chronic HFrEF:
-echo above, BiV cardiomyopathy both valvular and ischemic
-severe s/p TAVR on 10/29/25, mod MR, mod-sev TR, severe pulm HTN
-s/p IV Lasix, now on PO Lasix
-note diuresis was limited by CRS (MICHAEL, POA, now resolved)
-GDMT limited by renal fxn and hypotension
Left-Sided Pleural Effusion:
-s/p L thoracentesis 10/30 for 1500cc (fluid studies not sent)
Thrombocytopenia:
-acute on chronic
-antiplatelet antibodies pending
Other problems:
CAD: s/p LAD stent on 10/09, cont statin/Plavix
Chronic Iron Deficiency Anemia: Hb stable, s/p IV Fe
Persistent Atrial Fibrillation/Flutter: cont Amio/Eliquis/Dig
Orthostatic Hypotension
Hyponatremia, mild
Rheumatoid Arthritis: For Rituxan outpt (no Hydroxychloroquine with CHF).
Collagenous Colitis: cont budesonide
Chronic Constipation: cont Miralax PRN
BPH: cont flomax
Chronic Insomnia: cont melatonin
Stage 1 Sacral Pressure Injury: wound care following
FULL/Eliquis
Anticipated Discharge: Within 24 hours
Subjective/Interval History
-
Date of Service: November 02, 2025
Denies SOB.
Objective Data
-
Labs:
Laboratory Results
11/02/25
03:30
WBC 7.7
Hgb 9.0 L
Hct 29.4 L
Plt Count 64 L
Sodium 133 L
Potassium 4.6
Chloride 101
Carbon Dioxide 29
BUN 37 H
Creatinine 1.1
Glucose 103 H
Calcium 8.3 L
Vital Signs:
Vital Signs
Temp Pulse Resp BP Pulse Ox
97.5 F 77 16 110/49 98
11/02/25 07:48 11/02/25 07:48 11/02/25 07:48 11/02/25 07:48 11/02/25 07:48
I&O
11/01/25 11/02/25 11/03/25
06:59 06:59 06:59
Intake Total 310 / 310 960 / 960
Output Total 750 / 750 1125 / 1125
Balance -440 / -440 -165 / -165
[2025-11-02] MEDS: COLACE PO (08:21)
[2025-11-02] MEDS: LASIX 60 MG PO (08:21)
[2025-11-02] MEDS: VITAMIN D3 (cholecalciferol) 25 MCG PO (08:22)
[2025-11-02] MEDS: PLAVIX 75 MG PO (08:22)
[2025-11-02] MEDS: ENTOCORT EC 3 MG PO (08:22)
[2025-11-02] MEDS: ELIQUIS 2.5 MG PO (08:22)
[2025-11-02] MEDS: KCL 20 MEQ PO (08:22)
[2025-11-02] MEDS: THERAGRAN 1 TABLET PO (08:22)
[2025-11-02] MEDS: PACERONE 200 MG PO (08:22)
[2025-11-02] MEDS: HYDROPHOR 1 APPLIC TOPICAL (08:26)
--- NOTE | 2025-11-02 08:36 | PTCARENOTE ---
received patient this am sitting up in chair c/o butt hurting him, patient stood at chair with assist of 1 and walker, weak today, foam dsg. checked underneath to make sure no breakdown, looks good, patient is just frail, and skinny. monitor shows
Afib, VSS. patient ordering breakfast.
--- NOTE | 2025-11-02 10:48 | CM ---
Addendum entered by Sharla Cope 11/02/25 12:37:
Received telephone call back from daughter, We reviewed transportation and she has opted to provide transportation to [facility] today.
Addendum entered by Sharla Cope 11/02/25 11:10:
Telephone call to [employer] to check on co-pay for Farxiga and Jardiance. His co-pay for Farxiga would be $74.84 a month or $224.53 for three months. Jardiance is $78.55 a month and $235.66 a three month supply. He has met his deductible for
this year, but prices will go up in the new year to met his new deductible. Reviewed with Mr. Sosa.
Original Note:
Reviewed chart. Telephone call to [facility], [facility] and [facility] Admissions. All facilities can accept Mr. Sosa. Reviewed with Mr. Sosa and he has selected [facility]. Updated [facility] Admissions.
Telephone call to Yanci galvin to review discharge plans and review transportation options. Left message. The report number is ([phone]) and fax number is ([phone]). Updated attending physician. Medical work-up in progress.
The discharge plan is to return go to [facility] today if medically stable.
--- NOTE | 2025-11-02 11:09 | W.PN.ONC2 ---
Today's Communication / Plan
-
discharge planning in progress
repeat CBC next week to ensure platelet stability
Impression
Impression
chronic CHF LVEF 30-35%
s/p TAVR
afib
thrombocytopenia - acute/ chronic
anemia - chronic
left pleural effusion s/p thora 12/5 -1500cc drained
Plan
Plan
1. Thrombocytopenia - acute/ chronic - potentially multifactorial
-has an element of chronic thrombocytopenia w/ baseline platelet count in the low 100,000 range - in the setting of RA -on hydroxychloroquine - as well as other possible medication effects - amiodarone
-now s/p TAVR - plts have drifted down to 65,000 11/01 and remain stable today at 64,000
-no apparent bleeding
-monitor for infection
-B12/ folic acid levels normal
-anti-platelet antibody pending - to evaluate for potential underlying autoimmune component w/ h/o RA
-coags mildly prolonged - normal fibrinogen
2. Anemia - acute / chronic anemia w/ baseline hemoglobin in the 9-10g/dl range
-etiology of chronic anemia may be multifactorial as well - w/ RA as a potential contributing factor - anemia of chronic inflammation - as well as anemia of chronic illness w/ chronic heart failure
-reticulocyte count was mildly elevated today, indicating some possible baseline hemolysis - potentially in setting of recent TAVR procedures
-SILVINO - was negative indicating non-immune etiology
-total bili was normal - LDH only mildly elevated
-haptoglobin pending
-iron studies were not indicative of iron deficiency
Subjective/Objective
Subjective
afebrile, no hypoxia
denies pain
Vital Signs:
Vital Signs
Temp Pulse Resp BP Pulse Ox
97.5 F 87 16 120/66 95
11/02/25 07:48 11/02/25 10:00 11/02/25 07:48 11/02/25 09:49 11/02/25 08:30
Lab Results:
Laboratory Data
WBC 7.7 10^3/uL (4.8-10.8) 11/02/25 03:30
Hgb 9.0 g/dL (13.0-18.0) L 11/02/25 03:30
Plt Count 64 10^3/uL (130-400) L 11/02/25 03:30
PT 19.8 Sec (11.4-14.6) H 10/31/25 04:38
INR 1.67 10/31/25 04:38
APTT 49.0 Sec (23.4-35.0) H 10/31/25 04:38
eGFR > 60.00 11/02/25 03:30
Physical Exam
General: Well Developed and No Apparent Distress
HEENT: Negative Jaundice
Cardiology:irregular
Pulmonary: decreased breath sounds at salmon)
GI: Soft
Neurology: Non Focal
[2025-11-02] MEDS: LANOXIN 62.5 MCG PO (11:47)
--- NOTE | 2025-11-02 11:52 | W.PN.CARDCBS ---
Addendum entered and electronically signed by Danny Rollins MD 11/02/25 13:26:
89-year-old man with severe aortic stenosis who underwent JORGE A with 29 mm Hannah LENNY 3 Resilia valve on October 29, 2025. Currently on amiodarone to assist with rate control.
PMH: Aortic stenosis, EF 20-25%, newly persistent atrial flutter/fibrillation, left bundle branch block, rheumatoid arthritis, PAD, right total hip arthroplasty
SH: Recently , had been living aloneCurrent
medications: Amiodarone 200 mg a day, atorvastatin 40 mg a day, hydroxychloroquine has been stopped, tamsulosin 0.8 mg a day, budesonide, clopidogrel 75 mg a day, apixaban 2.5 mg twice daily, furosemide 60 mg p.o. twice daily, multivitamins,
potassium 20 mill equivalents daily, digoxin 62.5 mcg daily
120/66, pulse 85, respiratory rate 20, afebrile, weight is 68.1 kg, down 0.4 kg, it looks like he has converted to sinus rhythm, frail, cachectic, but looks stronger every day, mildly diminished breath sounds right base overall improving, neck veins
okay very soft systolic murmur left lung relatively clear, no edema
Hemoglobin 9, platelets are 64, still on Eliquis and aspirin sodium 133, BUN and creatinine 37 and 1.1 potassium 4.6
Plan:
He continues to improve, blood pressure looks a little better, heart failure seems controlled, and happily it seems he has converted to sinus rhythm. Suspect pulmonary congestion has improved over the last few days, check EKG and chest x-ray out
the door.
GDMT remains limited by hypotension, but over time hopefully can be optimized.
He remains thrombocytopenic but is not bleeding, we will continue clopidogrel and apixaban.
Okay for discharge from cardiac standpoint.
He will need a BMP, dig level, and CBC in 5 to 7 days.
Recommended cardiac medications at discharge:
Amiodarone 200 mg daily
Atorvastatin 40 mg daily
Clopidogrel 75 mg daily
Apixaban 2.5 mg twice daily
Furosemide 60 mg twice daily
potassium 10 mEq daily
Digoxin 62.5 mcg daily,
Original Note:
Today's Communication / Plan
-
Appears to be in sinus rhythm. Check EKG to confirm
Continue amiodarone and low-dose digoxin
Check CBC, dig level and basic metabolic panel 5 to 7 days postdischarge, order placed on chart
Continue renal dose Eliquis and Plavix
Initiate Farxiga 10 mg daily
Impression / Plan
-
.
PCP: Dr. Osman
Cardiology: Dr. Huntley
Impression:
Presentation 10/26/2025 with SOB
Acute on chronic HFrEF, proBNP 7620
Elevated troponin, suspected nonischemic myocardial injury, peaked 0.08
Low flow-Severe with mean gradient 35 mmHg by echo 06/26/2025
status post right transfemoral TAVR 29 mm Hannah LENNY valve 10/29/2025
Elective cardiac catheterization for PCI LAD and circumflex 10/09/[address] Gutierrez, radial approach
Successful stenting of the mid LAD with a 3.0 x 34 mm Ady stent that was postdilated to high-pressure's with a 3.5 mm noncompliant balloon. Successful stenting of the circumflex extending into a terminal obtuse marginal branch. SHOCKWAVE
lithotripsy was performed with a 3.0 x 12 mm balloon and was followed by placement of a 3.0 x 15 mm [place] stent that was implanted at nominal pressures and postdilated with a 3.25 mm noncompliant balloon
Biventricular cardiomyopathy with reduced ejection fraction, valvular and ischemic.
EF 20-25% with dilated RV and reduced RV systolic function 07/2025
Recent heart failure admission July 2025, September 2025
Atrial fibrillation, new diagnosis 08/19/2025
Eliquis anticoagulation
Left bundle branch block
PAD, suspected
Venous stasis dermatitis/ venous stasis
Hyperlipidemia
Rheumatoid arthritis, on Rituxan and hydroxychloroquine
Chronic anemia
Gait dysfunction
Echo 06/26/2025: EF 50%, severe with peak/mean 64/35 mmHg, mild to moderate MR, mild to moderate TR with PAP 54 mmHg
Echo 08/20/2025: EF 20 to 25% with global hypokinesis. Dilated right ventricle with mildly reduced RV systolic function. By atrial dilation. Heavily calcified aortic valve with reduced leaflet excursion.
Echo Oct 21 2025: Severely reduced left ventricular systolic function with estimated LVEF of 23% by Almeida's method. Dilated right ventricle with mildly reduced RV function. Severely dilated left atrium. Moderately dilated right atrium. Severe
aortic valve leaflet thickening with severe low-flow low gradient aortic stenosis in the setting of a severely reduced ejection fraction. Estimated peak and mean trans aortic gradients of 35 and 22 mmHg, respectively. Trace aortic regurgitation..
Moderate mitral valve regurgitation. Moderate to severe tricuspid regurgitation with severe pulmonary hypertension. Estimated pulmonary artery systolic pressure of 68 mmHg, assuming a right atrial pressure of 15 mmHg. Small pericardial effusion is
present. Moderate size pleural effusion is present., last EF Jul 2025 20-25%.
Echo 10/30/2025 (post TAVR): EF 30-35%, dilated hypoakinetic RV, pulmonary artery systolic pressure is 52 mmHg, 29 mm Hannah LENNY valve, peak/mean gradients are 5 and 3. Trace aortic regurgitation, mild MR, moderate TR, pleural effusion
Plan:
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
- 2D echocardiogram during procedure with TAVR well-seated and mean gradient 2-3 mmHg with no AI or paravalvular leak. A pleural effusion was present.
-Limited 2D echocardiogram 10/30/2025 again demonstrated biventricular cardiomyopathy with an LVEF estimated 30 to 35%. TAVR was well-seated with peak/mean gradients 5/3 mmHg and trace AI. There is no significant pericardial effusion but a pleural
effusion was present
- Chest x-ray 10/30/2025 with bilateral interstitial and central pulmonary opacities and small to moderate bilateral pleural effusions. No pneumothorax.
- Pre-existing left bundle branch block with no significant bradycardia on telemetry.
- outpatient echocardiogram in 1 month as per TAVR protocol.
Left pleural effusion
-Patient underwent successful left thoracentesis, yielding 1500 cc clear yellow pleural fluid. Postprocedure x-ray without pneumothorax.
- Recommend follow-up chest x-ray in 2-3 weeks to reassess for fluid accumulation
Mixed ischemic/valvular biventricular cardiomyopathy with LV ejection fraction preprocedure 20-25%, acute on chronic HFrEF, proBNP 7620 on admission
- Weight down at least 8 pounds since admission 10/26/2025
- Blood pressures have been on low side throughout admission. This has limited our ability in GDMT. For now would hold on initiating beta-shashi or CASEY inhibitor. Can reassess blood pressure and GDMT in outpatient setting.
- Continue Lasix 60 mg p.o. twice daily
- Case management consulted for SGLT2 inhibitor and will cost patient $75-$80 a month for both Farxiga and Jardiance. This is after patient has met deductible. After November 26, 2025 deductible will need to be met. He is agreeable to initiate
SGLT2 inhibitor. Would start Farxiga 10 mg daily.
- Hopefully ejection fraction will improve at follow-up echo.
- Check BNP 5 to 7 days postdischarge. Lab order slip entered by me and placed on chart
Patient with newer onset atrial fibrillation diagnosed in July 2025
- Was in A-fib flutter most of admission. However appears to have converted to sinus rhythm upon review of telemetry on morning of 11/02/2025. Will repeat EKG now to confirm
- Continue amiodarone 200 mg daily.
- New to digoxin 62.5 mcg 11/01/2025. Will need dig level checked as outpatient in 5-7 days. Lab order slip entered by me and placed on chart
- Continue Eliquis 2.5 mg twice daily while also on Plavix status post recent PCI
Coronary artery disease status post successful stenting of the mid LAD and OM in July and September 2025
- No symptoms of chest pain.
- Continue Plavix/Eliquis
- Continue atorvastatin
- We will hold off addition of beta-shashi at this time given left bundle branch block and recent TAVR and consider use of carvedilol as an outpatient if conduction is stable
Patient does have history of baseline anemia with hemoglobin 9-10 g/dl range. Of note platelets have drifted down to 65,000 11/02/2025. Heme-onc is following. No evidence of any acute bleeding. B12/folate acid levels normal. SILVINO - was negative
indicating non-immune etiology. Antiplatelet antibody, haptoglobin and fibrinogen are pending.
- Check CBC 5 to 7 days postdischarge. Lab order slip entered by me and placed on chart
PT/OT with plan to discharge to SNF on 11/02
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
Subjective
Date of Service: November 02, 2025
Patient seen and examined. Patient resting comfortably in chair. Symptomatically reports he feels very well. He has been ambulating some around the room and feels okay. In general just feels deconditioned. Discussed SGLT2 inhibitor and patient
is agreeable
Objective
Labs:
11/02/25 03:30
11/02/25 03:30
Labs
Hgb 9.0 g/dL (13.0-18.0) L 11/02/25 03:30
Hct 29.4 % (39.0-52.0) L 11/02/25 03:30
Plt Count 64 10^3/uL (130-400) L 11/02/25 03:30
PT 19.8 Sec (11.4-14.6) H 10/31/25 04:38
INR 1.67 10/31/25 04:38
APTT 49.0 Sec (23.4-35.0) H 10/31/25 04:38
Sodium 133 mmol/L (135-145) L 11/02/25 03:30
Potassium 4.6 mmol/L (3.5-5.1) 11/02/25 03:30
BUN 37 mg/dl (9-20) H 11/02/25 03:30
Creatinine 1.1 mg/dL (0.7-1.3) 11/02/25 03:30
Glucose 103 mg/dl (70-99) H 11/02/25 03:30
Vital Signs and I&O:
Vital Signs
Temp Pulse Resp BP Pulse Ox
97.7 F 85 20 120/66 98
11/02/25 11:12 11/02/25 11:47 11/02/25 11:12 11/02/25 09:49 11/02/25 11:12
Vital Signs
Temp Pulse Resp BP Pulse Ox
97.7 F 85 20 120/66 98
11/02/25 11:12 11/02/25 11:47 11/02/25 11:12 11/02/25 09:49 11/02/25 11:12
Intake & Output
10/31/25 11/01/25 11/02/25 11/03/25
06:59 06:59 06:59 06:59
Intake Total 200 / 200 310 / 310 960 / 960
Output Total 900 / 900 750 / 750 1125 / 1125 210 / 210
Balance -700 / -700 -440 / -440 -165 / -165 -210 / -210
Physical Exam
Physical Exam
GEN: No distress, awake, Ox3
HEENT: supple, anicteric, mmm
LUNGS: Crackles at bilateral bases otherwise CTA, no wheezes/rales
CV:regulart rate and rhythm, S1/S2, no murmur, rub or gallop
ABD: soft, BS+, NT/ND
EXT: No edema, clubbing or cyanosis, thickened skin changes consistent with chronic venous stasis
NEURO: Gross non-focal
SKIN: No rash, warm, dry, pink
[2025-11-02] MEDS: FARXIGA 10 MG PO (12:55)
--- NOTE | 2025-11-02 13:35 | PTCARENOTE ---
EKG obtained, Dr. John Rollins aware. also sending patient for chest xray.
--- NOTE | 2025-11-02 14:08 | PTCARENOTE ---
dressings removed from bilat. groins, right groin puncture site is open, no oozing, 4x4 and dressing placed over groin. left groin left HEIDI. bilat. distal pulses by Doppler.
--- NOTE | 2025-11-02 14:54 | W.DCSUMMARY ---
Discharge Summary
Discharge Data
Date of Admission: 10/26/25
Date of Discharge: 11/02/25
-
Pending Results: Yes
Additional Pending Results:
Antiplatelet antibodies
Hospital Course
Primary diagnoses:
Acute on chronic heart failure with reduced ejection fraction
Left-sided pleural effusion s/p L thoracentesis
Thrombocytopenia
Acute kidney injury due to cardiorenal syndrome
R TF TAVR on 10/29/25
Secondary diagnoses:
Coronary artery disease s/p left anterior descending left circumflex stents
Chronic Iron Deficiency Anemia
Persistent Atrial Fibrillation/Flutter
Orthostatic Hypotension
Hyponatremia, mild
Rheumatoid Arthritis
Collagenous Colitis
Chronic Constipation
Benign prostatic hypertrophy
Chronic Insomnia
Stage 1 Sacral Pressure Injury
Consultants:
Cardiology
Hematology
Cardiothoracic surgery
Imaging:
Echo 10/29:
1. Severely depressed LVEF at 20 to 25%. Global hypokinesis in limited views.
2. Dilated right ventricle with depressed systolic function.
3. Well-seated normally functioning bioprosthetic aortic valve (status post TAVR–Hannah SHANEL's number 29 mm). Mean gradient 3 mmHg. No regurgitation seen.
4. Compared to the prior on 10/21/2025, today's study was a limited study to guide TAVR procedure. At the conclusion, the aortic valve has been successfully replaced.
Echo 10/30:
1. Limited follow-up study s/p TAVR implant 10/29/2025.
2. Severely reduced left ventricular systolic function, left ventricular ejection fraction estimated by Almeida's method 30-35%.
3. Dilated hypokinetic right ventricle with severe pulmonary hypertension. Estimated pulmonary artery systolic pressure 52 mmHg assuming a right atrial pressure of 10 mmHg. IVC is dilated and does not collapse with inspiration.
4. Hannah Shanel 29mm TAVR appears well seated . Peak/mean gradients across the aortic valve are 5/3mmHg respectively. Trace aortic valve regurgitation seen.
5. Mild mitral regurgitation. Moderate tricuspid regurgitation.
6. No significant pericardial effusion. Pleural effusion present.
7. Compared to prior limited study immediately post TAVR implant 10/29/2025, left ventricular ejection fraction previously estimated 20-25%. Previous TAVR peak/mean gradients 5/3 mmHg with no aortic regurgitation. Pleural effusion previously present.
89-year-old male presented with chief complaints of shortness of breath and fatigue as outlined in the H&P done on admission. Hospital course per problem list:
Acute on Chronic HFrEF: The patient had known heart failure with reduced ejection fraction with biventricular cardiomyopathy that was both valvular and ischemic. The patient was diuresed with IV Lasix and then transition to oral Lasix. Note
diuresis was limited by CRS (MICHAEL, POA, now resolved). The patient underwent TF TAVR on 10/29/25. His goal-directed medical therapy was limited by renal function and hypotension. The patient had a left-sided pleural effusion and underwent left
thoracentesis on 10/30 for 1500cc (fluid studies not sent).
Thrombocytopenia: This was acute on chronic. The patient's aspirin was stopped. Antiplatelet antibodies are pending at the time of discharge.
Discharge Plan
-
Patient Disposition: Skilled Nursing/SNF
Discharge Diagnosis/Procedures: Acute on chronic heart failure with reduced ejection fraction, left-sided pleural effusion s/p L thoracentesis, thrombocytopenia, TF TAVR
Diet: Low Cholesterol and Low Sodium
Additional Diets: Fluid restrict to 1200cc/day
Activity: No strenuous activity
Driving Restrictions: No driving for 1 week
Bathing Restrictions: OK to Shower
Blood Work: CBC, BMP and Digoxin level 5-7 days post discharge. (Order placed on chart)
Others Tests: 30-day follow up echocardiogram: 11/27/24 @11:00 AM at cardiac services (register with outpatient registration in Main Lobby)
Other Services: Cardiac Rehab
Wound Care: No lotions, powders, or creams to puncture sites
Specialty Instructions: Weigh Daily- Call MD for wt gain/loss 3 lbs overnight/5 lbs in 1 week
Instructions: *[facility] Heart Failure Instructions
Referrals:
[facility] [Outside]
Isamar Sosa PA-C [Specified Professional Personl, Cardiology] - 12/01/25 9:40 am
Referral Note: Your appts for Dr Huntley on 01/07 and your ECHO on 12/29 were CANCELLED
New appts were made
Joseph Osman MD [Family Provider, Family Practice] - in less than 1 week
Prescriptions:
New
digoxin 125 mcg (0.125 mg) Tablet
62.5 mcg PO NOON Qty: 15 0RF
dapagliflozin propanediol 10 mg Tablet
10 mg PO DAILY Qty: 30 0RF
Continued
alendronate 35 mg Tablet
35 mg PO SA
therapeutic multivitamin Tablet
1 tab PO DAILY
acetaminophen 650 mg Tablet Extended Release
1,300 mg PO Q8HPRN PRN (Reason: mild pain)
budesonide 3 mg Capsule,Delayed,Extend.Release
3 mg PO DAILY
Rituxan 10 mg/mL Concentrate
See Rx Instructions .ROUTE .COMPLEX
Rx Instructions:
1 dose intravenously every 5 months
omega 6-upx-trx-fish oil [Fish Oil] 1,200 (144-216) mg Capsule
1 cap PO BID
cholecalciferol (vitamin D3) [Vitamin D3] 25 mcg (1,000 unit) Tablet
25 mcg PO DAILY
Xiidra 5 % Dropperette
1 drp BOTH EYES BID
amiodarone 200 mg tablet
200 mg PO DAILY
tamsulosin 0.4 mg Capsule
0.8 mg PO HS
potassium 99 mg Tablet
99 mg PO DAILY
docusate sodium [Colace] 100 mg Capsule
200 mg PO BID
melatonin 10 mg Tablet
20 mg PO HS
atorvastatin 40 mg tablet
40 mg PO QPM
clopidogrel 75 mg tablet
75 mg PO DAILY
furosemide 20 mg tablet
60 mg PO BID AT 0800,1600
Eliquis 2.5 mg tablet
2.5 mg PO BID
Discontinued
hydroxychloroquine [Plaquenil] 200 mg Tablet
200 mg PO DAILY
aspirin 81 mg tablet,chewable
81 mg PO DAILY
Discharge Orders:
Discharge Patient (As Directed); Ordered 11/02/25
Ordered By: Jose Miguel Pierce
Care Plan Goals
Care Plan Goals:
Problem: Readiness for enhanced knowledge related to diagnosis and treatment plan
Goal: Understand your diagnosis and treatment plan needs, including medications if applicable.
Instructions: Know your diagnosis, underlying causes and treatment plan options, including medications if applicable. Consult with your health care team to learn about your diagnosis and treatment plan, including medications if applicable.
Discharge Date and Time
Print Language: CROATIAN
--- NOTE | 2025-11-02 15:20 | PTCARENOTE ---
patient was washed, foam removed from sacrum and foam removed from bilat. heels, skin had no breakdown. bilat. groin dsg. were removed, right groin puncture site open but not oozing, dsg. 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
pulses by Doppler. patient assisted with getting dressed. monitor D/C'd, INT D/C'd, personal belongings packed and sent with patient. daughter and son drove patient to [facility]. report called to Deanna LOPEZ [phone] at [facility].
chart given to mehnaz to give to facility. our community organization worker Janet faxed chart to them [phone].
[2025-11-02 19:39] LABS: Platelet Antibody, Direct IgG Negative (Negative); Platelet Antibody, Direct IgM Negative (Negative)
== END 2025-11-02 15:28 | DRG 266 ==
LOC: IVU 20:05
PROVIDERS: Hospitalist; Physician Assistant; Physician Assistant Medical; Radiology Vascular & Interventional Radiology; Thoracic Surgery (Cardiothoracic Vascular Surgery); ADMITTING PHYSICIAN Hospitalist; ATTENDING PHYSICIAN Internal Medicine; CONSULT PHYSICIAN Internal Medicine Hematology & Oncology; EMERGENCY PHYSICIAN Emergency Medicine; FAMILY PHYSICIAN Family Medicine; OTHER PHYSICIAN Internal Medicine Cardiovascular Disease
PROC: 02RF38Z Replacement of Aortic Valve with Zooplastic Tissue, Percutaneous Approach (ICD-10-PCS; 2025-10-29)
PROC: 0W9B3ZZ Drainage of Left Pleural Cavity, Percutaneous Approach (ICD-10-PCS; 2025-10-30)
DX: I35.0 Nonrheumatic aortic (valve) stenosis (principal); Z00.6 Encounter for examination for normal comparison and control in clinical research program; I50.23 Acute on chronic systolic (congestive) heart failure; E87.1 Hypo-osmolality and hyponatremia; I48.19 Other persistent atrial fibrillation; N17.9 Acute kidney failure, unspecified; I5A Non-ischemic myocardial injury (non-traumatic); J90 Pleural effusion, not elsewhere classified; I31.39 Other pericardial effusion (noninflammatory); I48.4 Atypical atrial flutter; I25.10 Atherosclerotic heart disease of native coronary artery without angina pectoris; I34.0 Nonrheumatic mitral (valve) insufficiency; I07.1 Rheumatic tricuspid insufficiency; I27.20 Pulmonary hypertension, unspecified; D50.9 Iron deficiency anemia, unspecified; M06.9 Rheumatoid arthritis, unspecified; K52.831 Collagenous colitis; N40.0 Benign prostatic hyperplasia without lower urinary tract symptoms; K59.09 Other constipation; F51.04 Psychophysiologic insomnia; I87.2 Venous insufficiency (chronic) (peripheral); I87.8 Other specified disorders of veins; R26.9 Unspecified abnormalities of gait and mobility; I73.9 Peripheral vascular disease, unspecified; I44.7 Left bundle-branch block, unspecified; D69.6 Thrombocytopenia, unspecified; R19.7 Diarrhea, unspecified; D63.8 Anemia in other chronic diseases classified elsewhere; I25.5 Ischemic cardiomyopathy; K30 Functional dyspepsia; L89.151 Pressure ulcer of sacral region, stage 1; I95.81 Postprocedural hypotension; Z96.641 Presence of right artificial hip joint; Z60.2 Problems related to living alone; Z95.5 Presence of coronary angioplasty implant and graft; Z79.01 Long term (current) use of anticoagulants; Z79.82 Long term (current) use of aspirin; Z79.02 Long term (current) use of antithrombotics/antiplatelets; Z87.891 Personal history of nicotine dependence; Z82.49 Family history of ischemic heart disease and other diseases of the circulatory system; Z82.61 Family history of arthritis; Z88.1 Allergy status to other antibiotic agents; Z88.3 Allergy status to other anti-infective agents; Z88.0 Allergy status to penicillin; Z88.2 Allergy status to sulfonamides; Z63.4 Disappearance and death of family member; Z79.83 Long term (current) use of bisphosphonates; Z79.899 Other long term (current) drug therapy
CPT/HCPCS: 32555; 33361; 71045; 71046; 80048; 80053; 81003; 81015; 82607; 82728; 82746; 83010; 83540; 83550; 83615; 83690; 83735; 83880; 84155; 84484; 85025; 85027; 85045; 85347; 85384; 85610; 85730; 86023; 86850; 86880; 86900; 86901; 86920; 87045; 87046; 87324; 87427; 87449; 89055; 93005; 93308; 93321; 93325; 96374; 97110; 97116; 97163; 97164; 97167; 97168; 97530; 97535; 99285; C1760; C1769; C1894; J1160; J2916; Q9967

== ENCOUNTER → 2025-11-09 12:55 | Outpatient (REF) | payer OTHER, MEDICARE, BC, SELFPAY ==
[2025-11-09 13:53] LABS: Hematocrit 27.4 % (39.0-52.0); Hemoglobin 8.3 g/dL (13.0-18.0); Mean Corp Hgb Conc. 30.3 g/dL (33.0-37.0); Mean Corpuscular Volume 96.1 fL (80.0-94.0); Red Cell Dist. Width 17.1 % (11.5-14.5)
[2025-11-09 14:10] LABS: Platelet Count 49 10^3/uL (130-400)
[2025-11-09 14:33] LABS: Blood Urea Nitrogen 38 mg/dl (9-20); Calcium 8.3 mg/dl (8.4-10.2); Carbon Dioxide 29 mmol/L (22-30); Chloride 104 mmol/L (98-107); Digoxin 0.6 ng/ml (0.8-2.0); Glucose 93 mg/dl (70-99); Potassium 3.7 mmol/L (3.5-5.1); Sodium 136 mmol/L (135-145); eGFR 57.81
== END ==
LOC: OLABN 12:55
PROVIDERS: ATTENDING PHYSICIAN Student in an Organized Health Care Education/Training Program
DX: I50.20 Unspecified systolic (congestive) heart failure (principal); R79.89 Other specified abnormal findings of blood chemistry; E78.5 Hyperlipidemia, unspecified
CPT/HCPCS: 80048; 80162; 85027

== ENCOUNTER → 2025-11-24 09:23 | Outpatient (REF) | payer OTHER, MEDICARE, BC, SELFPAY ==
[2025-11-24 10:41] LABS: ALT (SGPT) 29 U/L (0-50); AST (SGOT) 39 U/L (17-59); Albumin 2.9 g/dl (3.5-5.0); Alkaline Phosphatase 74 U/L (38-126); Blood Urea Nitrogen 43 mg/dl (9-20); Calcium 8.5 mg/dl (8.4-10.2); Carbon Dioxide 30 mmol/L (22-30); Chloride 102 mmol/L (98-107); Glucose 96 mg/dl (70-99); Potassium 3.3 mmol/L (3.5-5.1); Sodium 136 mmol/L (135-145); Total Protein 5.4 g/dl (6.3-8.2); eGFR > 60.00
[2025-11-24 10:46] LABS: Hematocrit 29.5 % (39.0-52.0); Hemoglobin 9.0 g/dL (13.0-18.0); Mean Corp Hgb Conc. 30.5 g/dL (33.0-37.0); Mean Corpuscular Volume 95.5 fL (80.0-94.0); Nucleated Red Blood Cells % 0 % (-); Platelet Count 75 10^3/uL (130-400); Red Cell Dist. Width 17.0 % (11.5-14.5)
== END ==
LOC: OLABN 09:23
PROVIDERS: ATTENDING PHYSICIAN Student in an Organized Health Care Education/Training Program
DX: N17.9 Acute kidney failure, unspecified (principal); I50.23 Acute on chronic systolic (congestive) heart failure; I48.0 Paroxysmal atrial fibrillation
CPT/HCPCS: 36415; 80053; 83880; 85025